=== PATIENT | female | born 1985 | race Caucasian/White ===

== ENCOUNTER 2020-06-18 13:11 | Outpatient (REF) | payer MEDICARE, SELFPAY ==
[2020-06-18 13:56] LABS: COVID-19 Test Negative (Negative)
== END 2020-06-18 13:12 | disposition home or self-care (01) ==
LOC: HO.LAB 13:11
PROVIDERS: Visit Provider Internal Medicine
DX: Z20.822 Contact with and (suspected) exposure to COVID-19 (principal)
CPT/HCPCS: 36415; 87635; C9803

== ENCOUNTER 2020-10-23 12:10 | Outpatient (REF) | payer OTHER, SELFPAY | END 2020-10-23 12:11 | disposition home or self-care (01) | LOC: HO.LAB 12:10 | PROVIDERS: PCP Internal Medicine; Visit Provider Internal Medicine | DX: Z20.822 Contact with and (suspected) exposure to COVID-19 (principal) | CPT/HCPCS: C9803; U0003; U0005 ==

== ENCOUNTER 2020-11-07 18:52 | Inpatient (IN) | payer OTHER, SELFPAY ==
--- NOTE | ~2020-11-07 | XR_ITS ---
EXAMINATION: XR CHEST CLINICAL INFORMATION: SOB. COMPARISON: Chest 07/31/2017 TECHNIQUE: Frontal view of the chest was obtained. FINDINGS: The lungs are well-expanded and clear. Heart size and pulmonary vascularity is normal. Mild prominent parahilar markings seen but no suspicion for congestion or infiltrate No gross bony abnormality. XR/XR chest 1V IMPRESSION: Patchy ill-defined densities right upper lobe and left lower lobe question developing infiltrate.
--- NOTE | ~2020-11-07 | CT_ITS ---
EXAMINATION: CT ANGIOGRAM OF THE CHEST WITH AND WITHOUT CONTRAST (CT PULMONARY ANGIOGRAM FOR PE) CLINICAL INFORMATION: Reason for Exam covid +, SOB, hypoxia, r/o pe COMPARISON: Chest x-ray 11/07/2020 TECHNIQUE: Prior to contrast administration, noncontrast localization images were obtained. Subsequently, multidetector volumetric imaging was performed from the thoracic inlet to below the diaphragms following the administration of 85 mL Omnipaque 350 intravenous contrast. No contrast reaction reported Sagittal, coronal, and MIP oblique sagittal reformatted images were obtained on the CT workstation, uploaded to PACS, and reviewed. This CT examination was performed using dose optimization techniques as appropriate, variously including the following: *Automated exposure control *Adjustment of mA and/or kV according to patient size (this includes techniques or standardized protocols for targeted exams where dose is matched to indication/reason for exam; i.e. extremities or head) *Use of iterative reconstruction technique Total exam dose-length product 521 mGy-cm FINDINGS: QUALITY OF STUDY/CONTRAST BOLUS: Suboptimal. PULMONARY ARTERIES: No central pulmonary embolus is identified. However, there is inadequate assessment of the segmental and subsegmental vasculature due to bolus timing and patient body habitus. THORACIC AORTA: No aneurysm or dissection. LUNG: Multifocal bilateral pulmonary consolidations are noted with basilar and peripheral predominance in keeping with history of patient's Covid positive status. PLEURA: No pleural effusion or pneumothorax. MEDIASTINUM: The visualized thyroid gland is unremarkable. Scattered mediastinal lymph nodes are present with mild enlargement in the right paratracheal region. Mildly prominent left hilar lymph nodes are also noted. These may be reactive in nature given the pulmonary consolidations. Cardiac size is within normal limits; no pericardial effusion. No evidence of septal bowing or right heart strain. CHEST WALL/AXILLA: No axillary or internal mammary lymphadenopathy. OSSEOUS STRUCTURES: No acute or suspicious osseous abnormality. UPPER ABDOMEN: There is diffuse hypoattenuation of the liver suspicious for steatosis. No reflux of contrast into the hepatic veins to suggest elevated right heart pressures. CT/CT angio chest PE protocol IMPRESSION: 1. No central pulmonary embolus identified. Inadequate assessment of the segmental and subsegmental vasculature, and therefore emboli at these levels cannot be excluded. 2. Multifocal bilateral consolidations consistent with Covid pneumonia. 3. Mildly enlarged mediastinal and left hilar lymph nodes, which may be reactive. 4. Hepatic steatosis. VTE: negative
[2020-11-07 20:18] VITALS: BP 155/95; PULSE 111; RESP 16; TEMP 36.9; O2SAT 93; BMI 54.9
[2020-11-07 22:10] LABS: Anion Gap 13 (12-20); Blood Urea Nitrogen 6 mg/dL (9-16); Carbon Dioxide 28 mmol/L (22-29); Chloride 100 mmol/L (96-108); Creatinine Clr Calc Pharmacy 155.5; Estimated Glomerular Filt Rate > 60; Glucose Random 284 mg/dL (60-115); Potassium 4.3 mmol/L (3.3-5.1); Sodium 137 mmol/L (135-145)
[2020-11-07 22:17] LABS: B Type Natriuretic Peptide < 10 pg/mL (<100); Troponin-I High Sensitivity < 3.5 ng/L (<3.5-17.0)
[2020-11-07 22:20] LABS: Basophils Percent Auto 0.2 % (0-2); Eosinophils Percent Auto 0.6 % (0-4); Hemoglobin 15.8 g/dl (12.0-16.0); Imm Gran Abs Auto 0.03 X10*3/uL (0.00-0.03); Imm Gran Pct Auto 0.6 % (0.0-0.4); Lymphocytes Absolute Auto 1.6 X10*3/uL (1.2-4.9); Lymphocytes Percent Auto 32.4 % (20-40); MANUAL DIFF FLAG SCAN; Mean Corpuscular HGB Conc 32.2 g/dl (31.0-35.0); Mean Corpuscular Hemoglobin 27.4 pg (27.0-33.0); Mean Corpuscular Volume 84.9 fL (80-98); Mean Platelet Volume 10.2 fL (9.4-12.3); Monocytes Absolute Auto 0.3 X10*3/uL (0.1-1.2); Monocytes Percent Auto 5.4 % (2-11); Neutrophils Absolute Auto 2.9 X10*3/uL (2.0-8.3); Neutrophils Percent Auto 60.8 % (45-73); Platelet Count 154 X10*3/uL (160-400); Red Blood Count 5.77 X10*6/uL (4.20-5.50); SCAN SMEAR FLAG 1; White Blood Count 4.8 X10*3/uL (4.8-10.8)
[2020-11-07 22:24] LABS: SLIDE REVIEW VERIFIED
--- NOTE | 2020-11-07 23:15 | ECG_ITS ---
Test Reason : SOB Blood Pressure : / mmHG Vent. Rate : 105 BPM Atrial Rate : 105 BPM P-R Int : 132 ms QRS Dur : 080 ms QT Int : 342 ms P-R-T Axes : 023 023 014 degrees QTc Int : 452 ms Sinus tachycardia Otherwise normal ECG When compared with ECG of 31-JUL-2017 13:24, No significant change was found Referred By: Dannielle Jackson Electronically Signed By:SWATHI RUTH
[2020-11-07 23:56] LABS: Appearance Urine HAZY; Glucose Urine UA NEG (NEG); Leukocyte Esterase Urine NEG (NEG); Nitrite Urine NEG (NEG); UACC Culture Trigger NO; Urine Blood 2+ (NEG); Urine Ketones NEG (NEG); Urine Protein 2+ MG/DL (NEG-TRACE)
[2020-11-07 23:57] LABS: Amorphous Sediment Urine 1+ /LPF; Color Urine STRAW; Mucus Urine TRACE /LPF; Squamous Epithelial Cell Urine 2+ /LPF
[2020-11-07 23:58] LABS: Bacteria Urine TRACE /LPF; WBC Urine 0 /HPF (0-4)
--- NOTE | 2020-11-07 23:58 | ED.SOB ---
HPI - SOB/Dyspnea General Chief Complaint: Dyspnea Stated Complaint: Difficulty breathing/Covid + Time Seen by Provider: 11/07/20 23:04 Source: patient Mode of arrival: ambulatory Limitations: no limitations History of Present Illness HPI Narrative: 35-year-old female with a past medical history of asthma, morbid obesity here with complaints of shortness of breath, continued fever. Patient tells me that she was diagnosed with COVID on November 02. She has been quarantine at home. She has been using her asthma medications as prescribed. She also has a nebulizer machine which she has been using several times today. She does feel short of breath and she is still having fevers up to 101 at home. This Is associated with cough. No chest pain, leg swelling or pain. Not vaccinated for COVID Related Data Previous Rx's Medication Instructions Recorded albuterol sulfate 2.5 mg INHALATION QID PRN #180 ml 08/03/20 amoxicillin 875 mg-potassium 1 tab PO BID #20 tab 08/03/20 clavulanate 125 mg tablet (Augmentin) prednisone 10 mg tablet 10 mg PO .COMPLEX #45 tab 08/03/20 Allergies Allergy/AdvReac Type Severity Reaction Status Date / Time No Known Allergies Allergy Unverified 08/03/20 14:25 [No Known Allergies*] Review of Systems Review of Systems: Yes all other systems are reviewed and are negative Constitutional: Constitutional: Reports no additional constitutional complaints, Denies body ache(s), Denies chills, Reports fever(s), Denies headache(s) and Denies weakness Eyes: Eyes: Reports no additional eye complaints and Denies change in vision ENT: Reports system reviewed and no additional complaints, except as documented, Denies dizziness, Denies headache(s), Denies nasal congestion, Denies nasal discharge and Denies neck pain Cardiovascular: Cardiovascular: Reports no additional cardiovascular complaints, Denies chest pain, Denies leg edema and Reports dyspnea Respiratory: Respiratory: Reports no additional respiratory complaints, Reports cough and Reports dyspnea Gastrointestinal: Gastrointestinal: Reports no additional gastrointestinal complaints, Denies abdominal pain, Denies diarrhea, Denies nausea and Denies vomiting Genitourinary: Genitourinary: Reports no additional female genitourinary complaints and Denies urinary incontinence Musculoskeletal: Musculoskeletal: Reports no additional musculoskeletal complaints, Denies back pain, Denies arthralgias, Denies joint swelling, Denies neck pain, Denies numbness and Denies tingling Integumentary/Breasts: Skin/Breast: Reports system reviewed and no additional complaints, except as docu and Denies rash Neurologic: Reports system reviewed and no additional complaints, except as documented, Denies Abnormal speech present, Denies dizziness, Denies headache(s), Denies numbness, Denies tingling and Denies weakness PMFSH Past Medical History Attestation statement: The following information was validated with the patient. Source: old records reviewed and nursing notes reviewed Social History Social History Advance Directives: No Advance Directives Information Provided: Yes Physical Exam Vital Signs: Vital Signs: Last Vital Signs Temp 98.5 F 11/07/20 20:18 Pulse 111 H 11/07/20 20:18 Resp 16 11/07/20 20:18 BP 155/95 H 11/07/20 20:18 Pulse Ox 93 11/07/20 20:18 Body Mass Index 54.9 Const: General: cooperative, healthy appearing, comfortable and no acute distress Orientation/consciousness: patient oriented x3 Limitations: no limitations HENMT: Head: Yes normal to inspection Ears: hearing grossly normal bilaterally General nose exam: Normal external nose present Face and sinus: Yes normal facial exam Mouth: Normal oral and palatal mucosa present Throat: Yes posterior oropharynx normal Eyes: General: appearance normal, both eyes and all related structures Pupils: Equal, round and reactive pupils present Neck: Neck: Yes normal visual inspection Chest: Chest palpation & inspection: normal inspection of the chest Resp: Other: Mild expiratory wheezing throughout Effort & Inspection: normal respiratory effort Cardio: Rate: regular rate Rhythm: regular rhythm Peripheral pulses: Peripheral pulses 2+ throughout GI: Inspection: Yes normal to inspection Palpation (GI): Soft to palpation and nontender Auscultation: normal bowel sounds Back/Spine/Pelvis: Thoracic/Lumbar Spine: thoracic and lumbar spine normal to inspection Skin: General skin exam: no rashes or lesions noted Neuro: General: patient oriented x3, no focal motor deficits and normal sensation to monofilament Cranial nerves: Yes Equal, round and reactive pupils present Cognition (Neuro): normal cognition Speech: No Abnormal speech present Gait exam (Neuro): Normal gait present Motor exam (neuro): 5/5 motor strength present throughout Extrem: General: Yes normal to inspection, Yes no pedal edema and Yes no calf tenderness Course Course Course Narrative: 35-year-old female known COVID positive here with continued shortness of breath and fever. On arrival mild tachypnea, tachycardia noted. This is from a viral infection. Will need labs, chest x-ray, EKG, CTA to r/o PE Unable to perform d dimer at this facility. MDM - SOB/Dyspnea Medical Records Attestation: I reviewed the patient's medical records. Lab Data Attestation: I reviewed the patient's lab results. Result diagrams: 11/07/20 21:50 11/07/20 21:50 Labs: Lab Results 11/07/20 11/07/20 11/07/20 Range/Units 21:50 21:50 21:50 WBC 4.8 (4.8-10.8) X10*3/uL RBC 5.77 H (4.20-5.50) X10*6/uL Hgb 15.8 (12.0-16.0) g/dl Hct 49.0 H (37-47) % MCV 84.9 (80-98) fL MCH 27.4 (27.0-33.0) pg MCHC 32.2 (31.0-35.0) g/dl RDW 12.0 (11.0-16.0) % Plt Count 154 L (160-400) X10*3/uL MPV 10.2 (9.4-12.3) fL Immature Gran % (Auto) 0.6 H (0.0-0.4) % Neut % (Auto) 60.8 (45-73) % Lymph % (Auto) 32.4 (20-40) % [place] % (Auto) 5.4 (2-11) % Eos % (Auto) 0.6 (0-4) % Baso % (Auto) 0.2 (0-2) % Lymph # (Auto) 1.6 (1.2-4.9) X10*3/uL [place] # (Auto) 0.3 (0.1-1.2) X10*3/uL Eos # (Auto) 0.0 (0.0-0.4) X10*3/uL Baso # (Auto) 0.0 (0.0-0.2) X10*3/uL Abs Immat Gran (auto) 0.03 (0.00-0.03) X10*3/uL Absolute Neuts (auto) 2.9 (2.0-8.3) X10*3/uL Absolute Nucleated RBC 0.000 (0.0-0.012) X10*3/uL Nucleated RBC % (auto) 0.0 (0.0-0.2) /100WBC Smear Tech's Comments VERIFIED Sodium 137 (135-145) mmol/L Potassium 4.3 (3.3-5.1) mmol/L Chloride 100 (96-108) mmol/L Carbon Dioxide 28 (22-29) mmol/L Anion Gap 13 (12-20) BUN 6 L (9-16) mg/dL Creatinine 0.75 (0.5-1.4) mg/dL Estim Creat Clear Calc 155.5 Estimated GFR > 60 Random Glucose 284 H (60-115) mg/dL Lactic Acid (0.5-2.0) mmol/L Calcium 8.0 L (8.4-10.2) mg/dL Ferritin Troponin I High Sens < 3.5 (<3.5-17.0) ng/L B-Natriuretic Peptide < 10 (<100) pg/mL Urine Color Urine Appearance Urine pH (5.0-8.0) Ur Specific [place] (1.005-1.025) Urine Protein (NEG-TRACE) MG/DL Urine Glucose (UA) (NEG) MG/DL Urine Ketones (NEG) MG/DL Urine Blood (NEG) Urine Nitrite (NEG) Ur Leukocyte Esterase (NEG) Urine RBC (0) /HPF Urine WBC (0-4) /HPF Ur Squamous Epith Cells /LPF Amorphous Sediment /LPF Urine Bacteria /LPF Urine Mucus /LPF 11/07/20 11/07/20 11/07/20 Range/Units 23:42 23:42 23:43 WBC (4.8-10.8) X10*3/uL RBC (4.20-5.50) X10*6/uL Hgb (12.0-16.0) g/dl Hct (37-47) % MCV (80-98) fL MCH (27.0-33.0) pg MCHC (31.0-35.0) g/dl RDW (11.0-16.0) % Plt Count (160-400) X10*3/uL MPV (9.4-12.3) fL Immature Gran % (Auto) (0.0-0.4) % Neut % (Auto) (45-73) % Lymph % (Auto) (20-40) % [place] % (Auto) (2-11) % Eos % (Auto) (0-4) % Baso % (Auto) (0-2) % Lymph # (Auto) (1.2-4.9) X10*3/uL [place] # (Auto) (0.1-1.2) X10*3/uL Eos # (Auto) (0.0-0.4) X10*3/uL Baso # (Auto) (0.0-0.2) X10*3/uL Abs Immat Gran (auto) (0.00-0.03) X10*3/uL Absolute Neuts (auto) (2.0-8.3) X10*3/uL Absolute Nucleated RBC (0.0-0.012) X10*3/uL Nucleated RBC % (auto) (0.0-0.2) /100WBC Smear Tech's Comments Sodium (135-145) mmol/L Potassium (3.3-5.1) mmol/L Chloride (96-108) mmol/L Carbon Dioxide (22-29) mmol/L Anion Gap (12-20) BUN (9-16) mg/dL Creatinine (0.5-1.4) mg/dL Estim Creat Clear Calc Estimated GFR Random Glucose (60-115) mg/dL Lactic Acid 1.9 (0.5-2.0) mmol/L Calcium (8.4-10.2) mg/dL Ferritin Cancelled Troponin I High Sens (<3.5-17.0) ng/L B-Natriuretic Peptide (<100) pg/mL Urine Color STRAW Urine Appearance HAZY Urine pH 6.0 (5.0-8.0) Ur Specific [place] 1.020 (1.005-1.025) Urine Protein 2+ H (NEG-TRACE) MG/DL Urine Glucose (UA) NEG (NEG) MG/DL Urine Ketones NEG (NEG) MG/DL Urine Blood 2+ H (NEG) Urine Nitrite NEG (NEG) Ur Leukocyte Esterase NEG (NEG) Urine RBC 15-29 H (0) /HPF Urine WBC 0 (0-4) /HPF Ur Squamous Epith Cells 2+ /LPF Amorphous Sediment 1+ /LPF Urine Bacteria TRACE /LPF Urine Mucus TRACE /LPF Imaging Data Chest x-ray: Attestation: I personally reviewed and interpreted this imaging study as follows: Radiologist's impression: [address] [address] XRay Report Signed Patient: Jami Mathew MR#: [id number] : 1985 Acct:[id number] Age/Sex: 35 / F ADM Date: 11/07/20 Loc: .ED Attending Dr: Ordering Physician: Generic ED Physician Date of Service: 11/07/20 Procedure(s): XR chest 1V Accession Number(s): [id number] cc: Generic ED Physician~ EXAMINATION: XR CHEST CLINICAL INFORMATION: SOB. COMPARISON: Chest 07/31/2017 TECHNIQUE: Frontal view of the chest was obtained. FINDINGS: The lungs are well-expanded and clear. Heart size and pulmonary vascularity is normal. Mild prominent parahilar markings seen but no suspicion for congestion or infiltrate No gross bony abnormality. XR/XR chest 1V IMPRESSION: Patchy ill-defined densities right upper lobe and left lower lobe question developing infiltrate. ? ECG Data Attestation: I personally reviewed and interpreted this ECG as follows: ECG interpretation date: 11/08/20 ECG interpretation time: 23:55 Interpretation: Sinus tachycardia with a rate of 105, normal [place], normal QRS, normal QT Discharge Plan Discharge Clinical Impression: COVID-19 Prescriptions: No Action prednisone 10 mg tablet 10 mg PO .COMPLEX Qty: 45 RF: 0 amoxicillin-pot clavulanate [Augmentin] 875-125 mg tablet 1 tab PO BID Qty: 20 RF: 0 albuterol sulfate 2.5 mg /3 mL (0.083 %) solution for nebulization 2.5 mg inhalation QID PRN (Reason: shortness of breath or wheezing) Qty: 180 RF: 1
[2020-11-08] VITALS (8 sets, daily range): BP systolic 132–147; BP diastolic 81–103; PULSE 82–104; RESP 16–20; TEMP 36.7–37.2; O2SAT 91–95
[2020-11-08 00:02] LABS: Lactic Acid 1.9 mmol/L (0.5-2.0)
[2020-11-08 00:11] LABS: Alanine Aminotransferase 47 U/L (0-31); Albumin Level 3.9 g/dL (3.5-5.0); Alkaline Phosphatase 64 U/L (39-117); Aspartate Amino Transferase 53 U/L (5-31); Bilirubin Direct < 0.2 mg/dL (0.0-0.5); Bilirubin Total 0.3 mg/dL (0.0-1.0); C Reactive Protein 13.85 mg/dL (< or = 0.50); Lactate Dehydrogenase 561 U/L (122-220); Total Protein 7.1 g/dL (6.5-8.0)
[2020-11-08 00:27] LABS: Ferritin 1110 ng/mL (10-122)
[2020-11-08] MEDS: dexAMETHasone sod phosphate 4 MG/ML VIAL 6 MG IVPUSH ×2 (00:30→21:56)
[2020-11-08 05:59] LABS: Procalcitonin 0.07 ng/mL
[2020-11-08] MEDS: iohexoL 350 MG/ML 100 ML INFUS..BTL 85 ML IV (06:02)
--- NOTE | 2020-11-08 06:36 | P.HPHOSP_ITS ---
History of Present Illness Date of Service: 11/08/20 Chief Complaint: Shortness of breath This is a 35-year-old female with a past medical history of asthma presents to the hospital with complaints of increasing shortness of breath as well as fevers. Patient reports that she was diagnosed with COVID-19 on November 02, she has been isolating at home but her symptoms of shortness of breath as well as fevers have been persistent and worsening and therefore decided to come to the hospital. No palpitations, no abdominal pain nausea or vomiting, no diarrhea constipation, no urinary symptoms. No lower extremity edema. Patient is not vaccinated against COVID-19. Found to have a temperature of 98.5?, heart rate of 111, respiratory rate of 16, blood pressure 155/95, satting 93% on room air, dropping to 88% on ambulation For WBC count of 4.8, both elevated CRP, as well as LDH, ALT AST, ferritin Patient underwent CT angiogram which showed no central pulmonary emboli, inadequate assessment of the segmental and subsegmental arteries. Multifocal bilateral consolidation consistent with COVID pneumonia Given her hypoxia patient will be admitted for further management Review of Systems Review of Systems: Yes all other systems are reviewed and are negative [facility] Medical History History of asthma Pertinent family history: No pertinent family history Surgical History No significant past surgical history Social History Advance Directives: No Advance Directives Information Provided: Yes Meds Allergies Allergy/AdvReac Type Severity Reaction Status Date / Time No Known Allergies Allergy Unverified 08/03/20 14:25 [No Known Allergies*] Physical Exam Vital Signs and Narrative: Vital Signs: Last Vital Signs Temp 98.5 F 11/07/20 20:18 Pulse 104 H 11/08/20 00:10 Resp 20 11/08/20 00:10 BP 132/88 11/08/20 00:10 Pulse Ox 91 L 11/08/20 00:10 Body Mass Index 54.9 Const: General: cooperative and no acute distress Orientation/con sciousness: patient oriented x3 Eyes: General: appearance normal, both eyes and all related structures Pupils: Equal, round and reactive pupils present Resp: Other: Crackles bilaterally Effort & Inspection: normal respiratory effort Cardio: Rate: regular rate Rhythm: regular rhythm GI: Palpation (GI): Soft to palpation Auscultation: normal bowel sounds Skin: General skin exam: no rashes or lesions noted Neuro: General: patient oriented x3 Cranial nerves: Yes Equal, round and reactive pupils present Cognition (Neuro): normal cognition Extrem: General: Yes normal to inspection and Yes no pedal edema Results Labs CBC and Chem 7: 11/07/20 21:50 11/07/20 21:50 Labs: Laboratory Results - last 24 hr 11/07/20 11/07/20 11/07/20 21:50 21:50 21:50 MCV 84.9 MCH 27.4 MCHC 32.2 RDW 12.0 Plt Count 154 L MPV 10.2 Immature Gran % (Auto) 0.6 H Neut % (Auto) 60.8 Lymph % (Auto) 32.4 [place] % (Auto) 5.4 Eos % (Auto) 0.6 Baso % (Auto) 0.2 Lymph # (Auto) 1.6 [place] # (Auto) 0.3 Eos # (Auto) 0.0 Baso # (Auto) 0.0 Abs Immat Gran (auto) 0.03 Absolute Neuts (auto) 2.9 Absolute Nucleated RBC 0.000 Nucleated RBC % (auto) 0.0 Smear Tech's Comments VERIFIED Anion Gap 13 Estim Creat Clear Calc 155.5 Estimated GFR > 60 Random Glucose 284 H Lactic Acid Calcium 8.0 L Ferritin Total Bilirubin Direct Bilirubin AST ALT Alkaline Phosphatase Lactate Dehydrogenase Troponin I High Sens < 3.5 C-Reactive Protein B-Natriuretic Peptide < 10 Total Protein Albumin Procalcitonin Urine Color Urine Appearance Urine pH Ur Specific [place] Urine Protein Urine Glucose (UA) Urine Ketones Urine Blood Urine Nitrite Ur Leukocyte Esterase Urine RBC Urine WBC Ur Squamous Epith Cells Amorphous Sediment Urine Bacteria Urine Mucus 11/07/20 11/07/20 11/07/20 23:42 23:42 23:42 MCV MCH MCHC RDW Plt Count MPV Immature Gran % (Auto) Neut % (Auto) Lymph % (Auto) [place] % (Auto) Eos % (Auto) Baso % (Auto) Lymph # (Auto) [place] # (Auto) Eos # (Auto) Baso # (Auto) Abs Immat Gran (auto) Absolute Neuts (auto) Absolute Nucleated RBC Nucleated RBC % (auto) Smear Tech's Comments Anion Gap Estim Creat Clear Calc Estimated GFR Random Glucose Lactic Acid 1.9 Calcium Ferritin 1110 H Cancelled Total Bilirubin 0.3 Direct Bilirubin < 0.2 AST 53 H ALT 47 H Alkaline Phosphatase 64 Lactate Dehydrogenase 561 H Troponin I High Sens C-Reactive Protein 13.85 H B-Natriuretic Peptide Total Protein 7.1 Albumin 3.9 Procalcitonin Urine Color Urine Appearance Urine pH Ur Specific [place] Urine Protein Urine Glucose (UA) Urine Ketones Urine Blood Urine Nitrite Ur Leukocyte Esterase Urine RBC Urine WBC Ur Squamous Epith Cells Amorphous Sediment Urine Bacteria Urine Mucus 11/07/20 11/07/20 23:42 23:43 MCV MCH MCHC RDW Plt Count MPV Immature Gran % (Auto) Neut % (Auto) Lymph % (Auto) [place] % (Auto) Eos % (Auto) Baso % (Auto) Lymph # (Auto) [place] # (Auto) Eos # (Auto) Baso # (Auto) Abs Immat Gran (auto) Absolute Neuts (auto) Absolute Nucleated RBC Nucleated RBC % (auto) Smear Tech's Comments Anion Gap Estim Creat Clear Calc Estimated GFR Random Glucose Lactic Acid Calcium Ferritin Total Bilirubin Direct Bilirubin AST ALT Alkaline Phosphatase Lactate Dehydrogenase Troponin I High Sens C-Reactive Protein B-Natriuretic Peptide Total Protein Albumin Procalcitonin 0.07 Urine Color STRAW Urine Appearance HAZY Urine pH 6.0 Ur Specific [place] 1.020 Urine Protein 2+ H Urine Glucose (UA) NEG Urine Ketones NEG Urine Blood 2+ H Urine Nitrite NEG Ur Leukocyte Esterase NEG Urine RBC 15-29 H Urine WBC 0 Ur Squamous Epith Cells 2+ Amorphous Sediment 1+ Urine Bacteria TRACE Urine Mucus TRACE ECG Interpretation: Sinus tachycardia Imaging Radiologist's Impressions: Impressions Chest X-Ray 11/07/20 20:19 IMPRESSION: Patchy ill-defined densities right upper lobe and left lower lobe question developing infiltrate. Chest CTA 11/08/20 00:00 IMPRESSION: 1. No central pulmonary embolus identified. Inadequate assessment of the segmental and subsegmental vasculature, and therefore emboli at these levels cannot be excluded. 2. Multifocal bilateral consolidations consistent with Covid pneumonia. 3. Mildly enlarged mediastinal and left hilar lymph nodes, which may be reactive. 4. Hepatic steatosis. VTE: negative Assessment and Plan (1) Acute respiratory failure with hypoxia: Status: Acute (2) Pneumonia due to COVID-19 virus: Status: Acute This is a 35-year-old female with past medical history of asthma presents to hospital with COVID-19 positive serology as well as shortness of breath and persistent fever # acute hypoxic respiratory failure - patient desatted to 88% on ambulation - secondary to COVID-19 pneumonia - will start on dexamethasone - monitor respiratory status # COVID-19 pneumonia - Diagnosis with COVID 19 on November 02 - patient on vaccinated - hypoxic on ambulation - start her on dexamethasone - O2 as required # asthma - will order DuoNeb p.r.n. as well as scheduled DVT prophylaxis: Heparin subQ Quality Stroke Does the patient have a stroke diagnosis?: No VTE Prior VTE?: No VTE Risk Level:: Medical - moderate - high VTE Device Contraindication: Treatment Not Indicated VTE Drug Contraindication: N/A - Med Ordered
[2020-11-08] MEDS: Albuterol/Iprat 2.5/0.5MG 3 ML AMPUL.NEB INHALE (06:52)
--- NOTE | 2020-11-08 07:52 | PC.NURSE ---
report taken from francis cutler pt here covid + w sob on exertion. denies any physical complaint at this time, resting comfortably in stretcher rr even unlabored. awaiting inpt bed assignment, wctm for dc needs.
--- NOTE | 2020-11-08 08:27 | PHA.MEDREC ---
Pharmacy Consult ? Medication Reconciliation Pharmacy has completed the medication reconciliation. There are no remarkable issues for provider's attention. Tracie Dias, CaneloD
--- NOTE | 2020-11-08 09:04 | MHC.CM.PN ---
CM ATTEMPTED TO CONTACT PT AT THE NUMBER LISTED ([phone]). CALL WENT TO , MESSAGE LEFT REQUESTING A RETURN CALL AND PROVIDING IMM INFO. PT DOES NOT HAVE A HCP ON FILE. CM WILL ATTEMPT TO REACH PT AGAIN LATER IN THE DAY.
--- NOTE | 2020-11-08 11:59 | PM.EVENT ---
Event Note Date of Service: 11/08/20 Event Note: Patient seen examined chart reviewed patient admitted early this morning due to shortness of breath and fever, recently diagnosed to have COVID-19 on November 02. Patient feels better since admit no further episodes of fever continued to feel shortness of breath. On examination no respiratory distress awake alert Lungs bilateral rhonchi, diminished breath sound Extremities no edema Assessment and plan 35-year-old female with past medical history of asthma presents to hospital with COVID-19 positive serology as well as shortness of breath and persistent fever # acute hypoxic respiratory failure Due to COVID-19 pneumonia will continue IV dexamethasone, add DuoNeb continue cough medication, oxygen, encourage frequent position change Elevated CRP 13.85, LDH 561, CT chest showed no PE, showed multifocal bilateral consolidation and reactive mediastinal and left hilar lymph nodes,also noted to have hepatic steatosis Will add IV azithromycin Continue supportive care and monitor respiratory status # asthma Continue steroids and DuoNeb p.r.n. as well as scheduled # morbid obesity strongly recommend to lose weight and follow low-calorie diet low Marylu with likely contributing to hepatitic steatosis and hypoxia DVT prophylaxis:? Heparin subQ
[2020-11-08] MEDS: Famotidine/PF 20 MG/2 ML VIAL 40 MG IVPUSH ×2 (13:46→21:57)
[2020-11-08] MEDS: Azithromycin 500 MG in 0.9 % Sodium Chloride 250 ML 125 MG IV (13:46)
[2020-11-08] MEDS: Albuterol Sulfate 90 MCG 8 GM INHALER 4 PUFF INHALE (17:15)
[2020-11-08] MEDS: 0.9 % Sodium Chloride Flush 3 ML SYRINGE IVFLUSH (21:57)
[2020-11-08] MEDS: Heparin Sodium,Porcine 5,000 UNIT/ML VIAL 5000 UNIT SUBCUT (21:57)
[2020-11-09] VITALS (10 sets, daily range): BP systolic 124–158; BP diastolic 78–100; PULSE 79–99; RESP 18–20; TEMP 35.8–37; O2SAT 90–97
[2020-11-09] MEDS: 0.9 % Sodium Chloride Flush 3 ML SYRINGE IVFLUSH ×4 (00:03→20:49)
[2020-11-09] MEDS: Heparin Sodium,Porcine 5,000 UNIT/ML VIAL 5000 UNIT SUBCUT ×3 (05:10→20:48)
[2020-11-09 06:49] LABS: Basophils Percent Auto 0.2 % (0-2); Hematocrit 42.9 % (37-47); Hemoglobin 13.7 g/dl (12.0-16.0); Imm Gran Abs Auto 0.03 X10*3/uL (0.00-0.03); Imm Gran Pct Auto 0.7 % (0.0-0.4); Lymphocytes Absolute Auto 1.3 X10*3/uL (1.2-4.9); Lymphocytes Percent Auto 32.4 % (20-40); MANUAL DIFF FLAG SCAN; Mean Corpuscular HGB Conc 31.9 g/dl (31.0-35.0); Mean Corpuscular Hemoglobin 27.3 pg (27.0-33.0); Mean Corpuscular Volume 85.5 fL (80-98); Monocytes Absolute Auto 0.3 X10*3/uL (0.1-1.2); Monocytes Percent Auto 6.8 % (2-11); Neutrophils Absolute Auto 2.5 X10*3/uL (2.0-8.3); Neutrophils Percent Auto 59.9 % (45-73); Platelet Count 198 X10*3/uL (160-400); Red Blood Count 5.02 X10*6/uL (4.20-5.50); Red Cell Distribution Width 11.9 % (11.0-16.0); SCAN SMEAR FLAG 1; White Blood Count 4.1 X10*3/uL (4.8-10.8)
[2020-11-09 07:03] LABS: Anion Gap 13 (12-20); Blood Urea Nitrogen 12 mg/dL (9-16); Carbon Dioxide 28 mmol/L (22-29); Chloride 100 mmol/L (96-108); Creatinine Clr Calc Pharmacy 149.4; Estimated Glomerular Filt Rate > 60; Potassium 4.9 mmol/L (3.3-5.1); Sodium 136 mmol/L (135-145)
[2020-11-09 07:34] LABS: SLIDE REVIEW VERIFIED
[2020-11-09 07:56] LABS: Glucose Random 397 mg/dL (60-115)
[2020-11-09] MEDS: Albuterol Sulfate 90 MCG 8 GM INHALER 4 PUFF INHALE ×4 (08:22→19:55)
--- NOTE | 2020-11-09 09:01 | MHC.CM.PN ---
Patient is Covid positive and not reachable by phone ([phone] nor room Ext. [phone]); CM spoke with Patient's Mother/Lisandra and IMM was addressed with her (original to be mailed certified letter to her and a copy placed on the chart). Patient lives in an apartment with her Boyfriend and 3 Children, ages 10, 6, 4 years of age(All of whom are also Covid (+) and home is the goal for dc. CM has initiated and will follow for dc planning. PCP is Dr. Kavon Messer.
[2020-11-09] MEDS: Azithromycin 500 MG in 0.9 % Sodium Chloride 250 ML 125 MG IV (11:19)
[2020-11-09] MEDS: dexAMETHasone sod phosphate 4 MG/ML VIAL 6 MG IVPUSH (11:20)
[2020-11-09] MEDS: Famotidine/PF 20 MG/2 ML VIAL 40 MG IVPUSH ×2 (11:20→20:48)
--- NOTE | 2020-11-09 12:19 | P.PNIM_ITS ---
Subjective Subjective Date of Service: 11/09/20 Interval History: Patient being followed for hypoxia, feeling better this morning less short of breath, no chest tightness, complaining of cough, no other acute issues Review of Systems General no headache, no dizziness, no fever chills. CVS no chest pain, no palpitation. Respiratory cough, sob. Gastrointestinal no nausea, no vomiting, no abdominal pain Physical Exam Vital Signs: Vital Signs: Last Vital Signs Temp 98.6 F 11/09/20 11:17 Pulse 92 11/09/20 11:23 Resp 20 11/09/20 11:17 BP 149/85 H 11/09/20 11:17 Pulse Ox 95 11/09/20 11:17 Body Mass Index 54.9 General alert oriented x3,no acute distress. Neck supple no JVD. CVS regular rate rhythm, Respiratory lungs diminished breath sounds, bilateral expiratory wheeze, no respiratory distress Gastrointestinal abdomen soft, nontender, bowel sounds audible, no guarding , no rigidity. Extremities no edema. Neuro nonfocal , speech clear. Skin no rash Psych appropriate affect Objective Data Active Medications Acetaminophen (Acetaminophen 325 Mg Tablet) 650 mg PO Q6H PRN PRN Reason: Pain, Mild (Pain Scale 1-3) Albuterol Sulfate (Albuterol Sulfate 90 Mcg 8 Gm Inhaler) 4 puff INHALE RQ4H WHILE AWAKE [facility] Last Admin: 11/09/20 11:19 Dose: 4 puff Documented by: JOSÉ Dexamethasone Sodium Phosphate (Dexamethasone Sod Phosphate 4 Mg/Ml Vial) 6 mg IVPUSH DAILY [facility] Last Admin: 11/09/20 11:20 Dose: 6 mg Documented by: TOM Docusate Sodium (Docusate Sodium 100 Mg Capsule) 100 mg PO DAILY PRN PRN Reason: Constipation Famotidine (Famotidine/Pf 20 Mg/2 Ml Vial) 40 mg IVPUSH BID [facility] Last Admin: 11/09/20 11:20 Dose: 40 mg Documented by: TOM Heparin Sodium (Porcine) (Heparin Sodium,Porcine 5,000 Unit/Ml Vial) 5,000 unit SUBCUT Q8H [facility] Last Admin: 11/09/20 11:21 Dose: 5,000 unit Documented by: TOM Azithromycin 500 mg/ Sodium (Chloride) 250 mls @ 125 mls/hr IV Q24H [facility] Last Admin: 11/09/20 11:19 Dose: 125 mls/hr Documented by: TOM Ondansetron HCl (Ondansetron Hcl 4 Mg/2 Ml Vial) 4 mg IVPUSH Q8H PRN PRN Reason: Nausea and Vomiting Sodium Chloride (0.9 % Sodium Chloride Flush 3 Ml Syringe) 3 ml IVFLUSH QSHIFT [facility] Last Admin: 11/09/20 11:21 Dose: 3 ml Documented by: TOM Labs CBC & Chem 7: 11/09/20 06:21 11/09/20 06:21 Labs: Laboratory Results - last 24 hr 11/09/20 11/09/20 06:21 06:21 MCV 85.5 MCH 27.3 MCHC 31.9 RDW 11.9 Plt Count 198 D MPV 10.0 Immature Gran % (Auto) 0.7 H Neut % (Auto) 59.9 Lymph % (Auto) 32.4 [place] % (Auto) 6.8 Eos % (Auto) 0.0 Baso % (Auto) 0.2 Lymph # (Auto) 1.3 [place] # (Auto) 0.3 Eos # (Auto) 0.0 Baso # (Auto) 0.0 Abs Immat Gran (auto) 0.03 Absolute Neuts (auto) 2.5 Absolute Nucleated RBC 0.000 Nucleated RBC % (auto) 0.0 Smear Tech's Comments VERIFIED Anion Gap 13 Estim Creat Clear Calc 149.4 Estimated GFR > 60 Random Glucose 397 H* Calcium 8.0 L Microbiology Microbiology Results: Microbiology 11/08/20 02:00 Blood Culture - Preliminary Blood - Venous No growth after 24 hours. 11/08/20 01:55 Blood Culture - Preliminary Blood - Venous No growth after 24 hours. Assessment and Plan (1) Pneumonia due to COVID-19 virus: Status: Acute (2) Acute respiratory failure with hypoxia: Status: Acute (3) COVID-19: Status: Acute Assessment and Plan: 35-year-old female with past medical history of asthma presents to hospital with COVID-19 positive serology as well as shortness of breath and persistent fever # acute hypoxic respiratory failure ?? Due to COVID-19 pneumonia will continue IV dexamethasone, continue cough medication, oxygen support, encourage frequent position change ?? Elevated CRP 13.85, LDH 561, procalcitonin 0.07, CT chest showed no PE, showed multifocal bilateral consolidation and reactive mediastinal and left hilar lymph nodes,also noted to have hepatic steatosis ?? cont. IV azithromycin day 2 for possible bronchitis ?? Continue supportive care and monitor respiratory status Wean oxygen, encourage incentive spirometry and ambulation # asthma exac improving sob and cough ?? Continue iv steroids and albuterol mdi scheduled and p.r.n. / will dc duoneb due to covid # morbid obesity strongly recommend to lose weight and follow low-calorie diet /obesity likely contributing to hepatitic steatosis and hypoxia # hyperglycemia blood sugars in 300s likely due to steroids , no history of diabetes, will check hemoglobin A1c and place on insulin sliding scale DVT prophylaxis:? Heparin subQ Quality Stroke Does the patient have a stroke diagnosis?: No VTE Prior VTE?: No VTE Risk Level:: Medical - moderate - high VTE Device Contraindication: Treatment Not Indicated VTE Drug Contraindication: N/A - Med Ordered
[2020-11-09 16:06] LABS: Glucose, Whole Blood 483 mg/dL (60-115)
[2020-11-09] MEDS: Insulin Lispro 100 UNIT/ML 3 ML VIAL SUBCUT ×3 (16:28→20:48)
[2020-11-09 19:55] LABS: Glucose, Whole Blood 501 mg/dL (60-115)
[2020-11-09] MEDS: Insulin Lispro 100 UNIT/ML 3 ML VIAL 10 UNIT SUBCUT (20:48)
[2020-11-10 03:46] VITALS: BP 165/103; PULSE 81; RESP 16; TEMP 36.3; O2SAT 95
[2020-11-10] MEDS: Heparin Sodium,Porcine 5,000 UNIT/ML VIAL 5000 UNIT SUBCUT (04:22)
[2020-11-10 07:47] LABS: Glucose, Whole Blood 324 mg/dL (60-115)
[2020-11-10 08:00] VITALS: PULSE 80; RESP 20; TEMP 36.9; O2SAT 93
[2020-11-10] MEDS: Insulin Lispro 100 UNIT/ML 3 ML VIAL SUBCUT (08:16)
[2020-11-10] MEDS: 0.9 % Sodium Chloride Flush 3 ML SYRINGE IVFLUSH (08:16)
[2020-11-10] MEDS: Azithromycin 250 MG TABLET PO (08:17)
[2020-11-10] MEDS: dexAMETHasone sod phosphate 4 MG/ML VIAL 6 MG IVPUSH (08:17)
[2020-11-10 09:25] LABS: Estimated Average Glucose 266 mg/dL; Hemoglobin A1c % 10.9 %
[2020-11-10 09:37] LABS: Alanine Aminotransferase 36 U/L (0-31); Albumin Level 3.7 g/dL (3.5-5.0); Alkaline Phosphatase 55 U/L (39-117); Aspartate Amino Transferase 36 U/L (5-31); Bilirubin Direct 0.2 mg/dL (0.0-0.5); Bilirubin Total 0.4 mg/dL (0.0-1.0); Lactate Dehydrogenase 338 U/L (122-220); Total Protein 6.5 g/dL (6.5-8.0)
--- NOTE | 2020-11-10 10:22 | PM.DS ---
DS: Providers Provider Date of Service: 11/10/20 Date of admission: 11/08/20 02:21 Primary care physician: Kavon Messer MD DS: Diagnosis Discharge Diagnosis (1) Pneumonia due to COVID-19 virus: Status: Acute (2) Acute respiratory failure with hypoxia: Status: Acute (3) COVID-19: Status: Acute DS: Summary Hospital Course Hospital Course: History of presenting illness Chief Complaint: Shortness of breath This is a 35-year-old female with a past medical history of asthma presents to the hospital with complaints of increasing shortness of breath as well as fevers.? Patient reports that she was diagnosed with COVID-19 on November 02, she has been isolating at home but her symptoms of shortness of breath as well as fevers have been persistent and worsening and therefore decided to come to the hospital.? No palpitations, no abdominal pain nausea or vomiting, no diarrhea constipation, no urinary symptoms.? No lower extremity edema.? Patient is not vaccinated against COVID-19. Found to have a temperature of 98.5?, heart rate of 111, respiratory rate of 16, blood pressure 155/95, satting 93% on room air, dropping to 88% on ambulation For WBC count of 4.8, both elevated CRP, as well as LDH, ALT AST, ferritin Patient underwent CT angiogram which showed no central pulmonary emboli, inadequate assessment of the segmental and subsegmental arteries.? Multifocal bilateral consolidation consistent with COVID pneumonia Hospital course 35-year-old female with past medical history of asthma presents to hospital with COVID-19 positive serology on 11/07/20 with complain of shortness of breath and persistent fever, patient noted to be hypoxic and admitted to [facility] with a diagnosis of acute hypoxic respiratory failure due to COVID-19 pneumonia and treated with IV dexamethasone, cough medication, antibiotics and oxygen support, patient responded well to above treatment she has been weaned off of oxygen, hypoxia resolved therefore she is being discharged home on by mouth dexamethasone for 4 more days she has been recommended to continue isolation for next few days , She was also noted to have mild asthma exacerbation that has improved, she has been continued on home inhalers, patient was noted to have significantly elevated blood sugars patient has history of diabetes but currently not taking home medications therefore she has been started back on metformin 500 mg b.i.d. and has been advised to follow a diabetic diet and to follow blood sugars and to have close outpatient follow-up with primary care physician her hemoglobin A1cs greater than 10, in regard to her morbid obesity that is likely contributing to hepatic steatosis she was recommended low-calorie diet. Time Spent with Patient Time attestation: Total time spent providing and/or coordinating discharge services: Discharge coordination time: Greater than 30 minutes Quality: Stroke Does the patient have a stroke diagnosis?: No Physical Exam Vital Signs: Vital Signs: Last Vital Signs Temp 98.4 F 11/10/20 08:00 Pulse 80 11/10/20 08:00 Resp 20 11/10/20 08:00 BP 165/103 H 11/10/20 03:46 Pulse Ox 93 11/10/20 08:00 Body Mass Index 54.9 General alert oriented x3,no acute distress.? Neck? supple no JVD. CVS? regular rate rhythm, Respiratory lungs diminished breath sounds, bilateral expiratory wheeze, no? respiratory distress Gastrointestinal abdomen soft, nontender, bowel sounds audible, no guarding , no rigidity. Extremities no edema. Neuro nonfocal , speech clear. Skin no rash Psych appropriate affect DS: Data Data Completed and Pending Labs on day of discharge: Laboratory Results - last 24 hr 11/09/20 11/09/20 11/10/20 15:55 19:50 07:24 POC Glucose 483 H* 501 H* 324 H Estimat Average Glucose Hemoglobin A1c % Total Bilirubin Direct Bilirubin AST ALT Alkaline Phosphatase Lactate Dehydrogenase Total Protein Albumin 11/10/20 11/10/20 07:37 07:37 POC Glucose Estimat Average Glucose 266 Hemoglobin A1c % 10.9 Total Bilirubin 0.4 Direct Bilirubin 0.2 AST 36 H ALT 36 H Alkaline Phosphatase 55 Lactate Dehydrogenase 338 H Total Protein 6.5 Albumin 3.7 Preliminary micro results at discharge 11/08/20 02:00 Blood Culture - Preliminary Blood - Venous No growth after 48 hours. 11/08/20 01:55 Blood Culture - Preliminary Blood - Venous No growth after 48 hours. Discharge Plan Discharge Patient Disposition: Home, Self-Care Discharge Diagnosis: Acute hypoxic respiratory failure COVID-19 infection Referrals: Kavon Messer MD [Primary Care Provider] - 1 Week Discharge Medications: New azithromycin 250 mg Tablet 250 mg PO Q24H Qty: 3 RF: 0 metformin 500 mg tablet 500 mg PO BID Qty: 60 RF: 0 dexamethasone 6 mg tablet 6 mg PO DAILY Qty: 4 RF: 0 Continued albuterol sulfate 2.5 mg /3 mL (0.083 %) solution for nebulization 2.5 mg inhalation QID PRN (Reason: shortness of breath or wheezing) Qty: 180 RF: 1 Discharge Orders: Discharge Order (Routine); Ordered 11/10/20 Ordered By: Phillip Maxwell Diet: diabetic diet Activity on Discharge: As tolerated Stand Alone Forms: Patient Portal Discharge page Care Plan Goals: Continue isolation at home for next 2 days, wear mask in public, take dexamethasone for 4 more days. In regard to diabetes start using metformin 500 mg twice daily, medicine follow diabetic diet and monitor blood sugars at home might need higher doses of metformin follow-up with primary care physician Health Concerns: Diabetes mellitus strictly follow diabetic diet and blood sugars Plan of Treatment: Outpatient follow-up with primary care physician Assessment: As above
[2020-11-10] MEDS: Albuterol Sulfate 90 MCG 8 GM INHALER 4 PUFF INHALE (11:37)
[2020-11-10 11:38] VITALS: PULSE 87; O2SAT 94
== END 2020-11-10 11:50 | disposition home or self-care (01) | DRG 177 ==
LOC: HO.ED 23:09 → HO.EDOVER 11-08 06:17 → HO.IMC 11-08 17:57
PROVIDERS: Nurse Practitioner Family; Admitting Provider Internal Medicine; Emergency Provider Emergency Medicine; PCP Internal Medicine; Visit Provider Hospitalist
DX: U07.1 COVID-19 (principal); J12.82 Pneumonia due to coronavirus disease 2019; J96.01 Acute respiratory failure with hypoxia; Z68.43 Body mass index [BMI] 50.0-59.9, adult; J45.901 Unspecified asthma with (acute) exacerbation; K76.0 Fatty (change of) liver, not elsewhere classified; E66.01 Morbid (severe) obesity due to excess calories; Z86.16 Personal history of COVID-19; Z87.891 Personal history of nicotine dependence; Z79.84 Long term (current) use of oral hypoglycemic drugs; Z79.899 Other long term (current) drug therapy
CPT/HCPCS: 36415; 71045; 71275; 80048; 80076; 81001; 82728; 82947; 83036; 83605; 83615; 83880; 84145; 84484; 85025; 86140; 87040; 93005; 94640; 99285; J0456; J1100; Q9967

== ENCOUNTER 2021-04-05 07:56 | Outpatient (REF) | payer OTHER, SELFPAY ==
[2021-04-05 12:10] LABS: Alanine Aminotransferase 20 U/L (0-31); Albumin Level 4.3 g/dL (3.5-5.0); Alkaline Phosphatase 69 U/L (39-117); Anion Gap 12 (12-20); Aspartate Amino Transferase 16 U/L (5-31); Bilirubin Total 0.3 mg/dL (0.0-1.0); Blood Urea Nitrogen 10 mg/dL (9-16); Calcium 9.3 mg/dL (8.4-10.2); Carbon Dioxide 31 mmol/L (22-29); Chloride 100 mmol/L (96-108); Cholesterol 192 mg/dL; Estimated Glomerular Filt Rate > 60; Glucose Fasting 124 mg/dL (60-99); HDL Cholesterol 52 mg/dL; LDL Cholesterol Calculated 114 mg/dl; Potassium 4.6 mmol/L (3.3-5.1); Sodium 138 mmol/L (135-145); Total Protein 7.1 g/dL (6.5-8.0); Triglycerides 134 mg/dL
[2021-04-05 12:21] LABS: TSH reflex Free T4 1.02 uIU/mL (0.32-4.0)
[2021-04-05 12:23] LABS: Estimated Average Glucose 143 mg/dL; Hemoglobin A1c % 6.6 %
[2021-04-05 12:26] LABS: Creatinine Urine 100.04 mg/dL; Microalbum/Creatinine Ratio Ur 6.9 ug/mg cr
== END 2021-04-05 07:57 | disposition home or self-care (01) ==
LOC: HO.HMGCLDS 07:56
PROVIDERS: Visit Provider Internal Medicine
DX: E11.65 Type 2 diabetes mellitus with hyperglycemia (principal); J45.20 Mild intermittent asthma, uncomplicated; E66.01 Morbid (severe) obesity due to excess calories
CPT/HCPCS: 36415; 80053; 80061; 82043; 83036; 84443

== ENCOUNTER 2021-04-19 08:16 | Outpatient (REF) | payer OTHER, SELFPAY ==
[2021-04-19 12:13] LABS: Ferritin 200 ng/mL (10-122)
== END 2021-04-19 08:17 | disposition home or self-care (01) ==
LOC: HO.HMGCLDS 08:16
PROVIDERS: PCP Internal Medicine; Visit Provider Internal Medicine
DX: R79.89 Other specified abnormal findings of blood chemistry (principal)
CPT/HCPCS: 36415; 82728

== ENCOUNTER 2021-10-22 10:06 | Outpatient (REF) | payer OTHER, SELFPAY ==
--- NOTE | ~2021-10-22 | XR_ITS ---
EXAMINATION: XR WRIST, RIGHT CLINICAL INFORMATION: Right wrist pain, sprain. COMPARISON: None TECHNIQUE: PA, lateral, and oblique views of the right wrist. FINDINGS: The distal radius, ulna and radioulnar joint are normal. Carpal bones are intact. The joint spaces of the wrist are normal. No acute fracture, subluxation or focal soft tissue swelling. XR/XR wrist RT min 3V IMPRESSION: Normal right wrist.
== END 2021-10-22 10:07 | disposition home or self-care (01) ==
LOC: HO.HMGCX 10:06
PROVIDERS: PCP Internal Medicine; Visit Provider Internal Medicine
DX: S63.501A Unspecified sprain of right wrist, initial encounter (principal)
CPT/HCPCS: 73110

== ENCOUNTER 2022-09-15 10:51 | Outpatient (AMB) | payer OTHER, SELFPAY ==
--- NOTE | 2022-09-15 10:54 | MHC.OFFWIV ---
Intake Vital Signs 09/15/22 10:56 BP 120/82 Blood Pressure Location Lt brachial Position Sitting Pulse 102 H Pulse Source Pulse Oximeter Temp 98 F Temp Source Temporal Artery Scan Pulse Oximetry (%) 96 Oxygen Delivery Method Room Air Intake Visit Reasons: ?sore throat, cough, ear pain (both) (lobby) Intake Note: Patient here for slight cough, ear pain, sore throat, stomach ache, dizziness and headaches fevers which she has been experiencing these sx since thursday morning. Patient Tobacco Use Status: Former Tobacco user Allergies No Known Allergies [No Known Allergies*] Allergy (Verified 09/15/22 11:16) Medication List - Last Reconciled 09/15/22 by Brant Sánchez MD albuterol sulfate 2.5 mg (3 mL) inhalation QID PRN albuterol sulfate 90 mcg/actuation 2 puffs inhalation Q6H PRN alcohol swabs (Alcohol Prep Pads) Patient to check blood sugar once daily blood sugar diagnostic (FreeStyle Lite Strips) patient to check blood sugar once daily blood-glucose meter (FreeStyle Lite Meter kit) patient to check blood sugar once daily glipizide-metformin 5-500 mg 1 tab PO DAILY lancets (FreeStyle Lancets) Patient to check blood sugar once daily lisinopril 5 mg PO DAILY metformin 500 mg PO DAILY multivitamin 1 tab PO DAILY Do you need a note to return to daycare/school/sports/work: No HPI ?sore throat, cough, ear pain (both) (lobby) HPI Details Patient presents for a sick visit. Reporting symptoms of sinus congestion, sore throat and difficulty swallowing. Low-grade fever. No family member is sick. No recent travel. Patient reports symptoms of malaise and fatigue. [facility] Medical History Dyslipidemia Mild intermittent asthma Type 2 diabetes mellitus without complication, without long-term current use of insulin Surgical History Hx of section Family History Mother Fibromyalgia Father Diabetes Hypertension High cholesterol Social History Household Members: Family Housing: Apartment Do you presently have visiting nurse or other home services: No Patient Tobacco Use Status: Former Tobacco user Tobacco use type: Cigarette e-Cigarette/Vaping Use: Never Used Second Hand Smoke Exposure: No service: No Current occupational status: disabled Current occupational exposures/hazards: No Cognitive needs: No Hearing needs: No Vision needs: Yes Female Reproductive History Menstrual Age of Menarche: 12 Physical Exam Vital Signs: Last Vital Signs Temp 98 F 09/15/22 10:56 Pulse 102 H 09/15/22 10:56 BP 120/82 09/15/22 10:56 Pulse Ox 96 09/15/22 10:56 Oxygen Delivery Method Room Air 09/15/22 10:56 Const General: cooperative and healthy appearing Nutritional Appearance: well nourished Orientation/consciousness: patient oriented x3 Limitations: no limitations HEENT Head: Yes normal to inspection Eyes General: appearance normal, both eyes and all related structures Neck Neck: Yes normal visual inspection Chest Chest palpation & inspection: normal palpation of entire chest wall Resp Effort & Inspection: normal respiratory effort Neuro General: patient oriented x3 Results AMB Rapid Strep AMB Rapid Strep Negative Last Edit by JAH Clancy on 09/15/22 11:08 Results Reviewed Results Reviewed: Laboratory Last Values Strep Scn [facility] Negative 09/15/22 11:07 Assessment & Plan Assessment & Plan (1) Upper respiratory tract infection: Code(s): J06.9 - Acute upper respiratory infection, unspecified Plan: Antibiotics ordered. Increase fluid intake. Tylenol for aches and pains. If symptoms worsen, follow-up here for a recheck. Orders: Orders AMB Rapid Strep Screen Today Z13.9 - Encounter for screening, unspecified Coding Level of Care Code Est Pt Level 3 (62786) Diagnoses Upper respiratory tract infection J06.9
[2022-09-15 10:56] VITALS: BP 120/82; PULSE 102; TEMP 36.6; O2SAT 96
== END 2022-09-15 11:53 | disposition home or self-care (01) ==
PROVIDERS: PCP Internal Medicine; Visit Provider Internal Medicine
DX: Z13.9 Encounter for screening, unspecified (principal); J06.9 Acute upper respiratory infection, unspecified
CPT/HCPCS: 87880; 99213

== ENCOUNTER 2022-10-01 11:16 | Outpatient (REF) | payer OTHER, SELFPAY ==
[2022-10-01 13:03] LABS: MANUAL DIFF FLAG NO
[2022-10-01 13:23] LABS: Basophils Absolute Auto 0.1 X10*3/uL (0.0-0.2); Basophils Percent Auto 0.8 % (0-2); Eosinophils Absolute Auto 0.2 X10*3/uL (0.0-0.4); Eosinophils Percent Auto 2.3 % (0-4); Hematocrit 47.4 % (37.0-47.0); Hemoglobin 15.2 g/dl (12.0-16.0); Imm Gran Abs Auto 0.03 X10*3/uL (0.00-0.03); Imm Gran Pct Auto 0.3 % (0.0-0.4); Lymphocytes Absolute Auto 2.5 X10*3/uL (1.2-4.9); Lymphocytes Percent Auto 27.4 % (20-40); Mean Corpuscular HGB Conc 32.1 g/dl (31.0-35.0); Mean Corpuscular Hemoglobin 27.1 pg (27.0-33.0); Mean Corpuscular Volume 84.6 fL (80.0-98.0); Mean Platelet Volume 10.1 fL (9.4-12.3); Monocytes Absolute Auto 0.5 X10*3/uL (0.1-1.2); Neutrophils Percent Auto 64.2 % (45-73); Platelet Count 310 X10*3/uL (160-400); Red Cell Distribution Width 12.2 % (11.0-16.0); White Blood Count 9.3 X10*3/uL (4.8-10.8)
[2022-10-01 13:46] LABS: Alanine Aminotransferase 29 U/L (0-31); Anion Gap 12 (12-20); Aspartate Amino Transferase 20 U/L (5-31); Blood Urea Nitrogen 7 mg/dL (9-16); Calcium 8.9 mg/dL (8.4-10.2); Carbon Dioxide 28 mmol/L (22-29); Chloride 102 mmol/L (96-108); Cholesterol 188 mg/dL; Estimated Glomerular Filt Rate > 60; Glucose Fasting 157 mg/dL (60-99); HDL Cholesterol 48 mg/dL; LDL Cholesterol Calculated 113 mg/dl; Potassium 4.1 mmol/L (3.3-5.1); Sodium 138 mmol/L (135-145); Triglycerides 139 mg/dL
[2022-10-01 14:05] LABS: Ferritin 282 ng/mL (10-122)
[2022-10-01 14:54] LABS: Creatinine Urine 187.89 mg/dL; Microalbum/Creatinine Ratio Ur 12.2 ug/mg cr
== END 2022-10-01 11:17 | disposition home or self-care (01) ==
LOC: HO.HMGCLDS 11:16
PROVIDERS: PCP Internal Medicine; Visit Provider Internal Medicine
DX: J45.20 Mild intermittent asthma, uncomplicated (principal); E78.5 Hyperlipidemia, unspecified; E11.9 Type 2 diabetes mellitus without complications; E66.01 Morbid (severe) obesity due to excess calories; R79.89 Other specified abnormal findings of blood chemistry; Z13.9 Encounter for screening, unspecified
CPT/HCPCS: 36415; 80048; 80061; 82043; 82728; 84443; 84450; 84460; 85025

== ENCOUNTER 2022-10-01 11:44 | Outpatient (AMB) | payer OTHER, SELFPAY ==
[2022-10-01 12:16] VITALS: BP 122/76; PULSE 80; TEMP 36.3; O2SAT 98; BMI 57.4
--- NOTE | 2022-10-01 12:16 | AM.OFFWIN_ITS ---
Intake Vital Signs 10/01/22 12:16 Height 5 ft 5 in Weight 345 lb BMI 57.4 BP 122/76 Blood Pressure Location Rt brachial Position Sitting Pulse 80 Pulse Source Pulse Oximeter Temp 97.4 F Temp Source Temporal Artery Scan Pulse Oximetry (%) 98 Intake Visit Reasons: EST/sore throat /cough(masked lobby) Intake Note: pt is here for c/o sore throat Patient Tobacco Use Status: Former Tobacco user Allergies No Known Allergies [No Known Allergies*] Allergy (Verified 10/01/22 12:32) Medication List - Last Reconciled 10/01/22 by Brant Sánchez MD albuterol sulfate 2.5 mg (3 mL) inhalation QID PRN albuterol sulfate 90 mcg/actuation 2 puffs inhalation Q6H PRN alcohol swabs (Alcohol Prep Pads) Patient to check blood sugar once daily blood sugar diagnostic (FreeStyle Lite Strips) patient to check blood sugar once daily blood-glucose meter (FreeStyle Lite Meter kit) patient to check blood sugar once daily glipizide-metformin 5-500 mg 1 tab PO DAILY lancets (FreeStyle Lancets) Patient to check blood sugar once daily lisinopril 5 mg PO DAILY metformin 500 mg PO DAILY multivitamin 1 tab PO DAILY HPI EST/sore throat /cough(masked lobby) HPI Details Patient presents for a sick visit. Reporting symptoms of sinus congest ion, sore throat and difficulty swallowing. Low-grade fever. No family member is sick. No recent travel. Patient reports symptoms of malaise and fatigue. [facility] Medical History Dyslipidemia Mild intermittent asthma Type 2 diabetes mellitus without complication, without long-term current use of insulin Surgical History Hx of section Family History Mother Fibromyalgia Father Diabetes Hypertension High cholesterol Social History Household Members: Family Housing: Apartment Do you presently have visiting nurse or other home services: No Patient Tobacco Use Status: Former Tobacco user Tobacco use type: Cigarette e-Cigarette/Vaping Use: Never Used Second Hand Smoke Exposure: No service: No Current occupational status: disabled Current occupational exposures/hazards: No Cognitive needs: No Hearing needs: No Vision needs: Yes Female Reproductive History Menstrual Age of Menarche: 12 Physical Exam Vital Signs: Last Vital Signs Temp 97.4 F 10/01/22 12:16 Pulse 80 10/01/22 12:16 BP 122/76 10/01/22 12:16 Pulse Ox 98 10/01/22 12:16 BMI result Body Mass Index 57.4 Const General: cooperative and healthy appearing Nutritional Appearance: well nourished Orientation/consciousness: patient oriented x3 Limitations: no limitations HEENT Head: Yes normal to inspection Eyes General: appearance normal, both eyes and all related structures Neck Neck: Yes normal visual inspection Chest Chest palpation & inspection: normal palpation of entire chest wall Resp Effort & Inspection: normal respiratory effort Neuro General: patient oriented x3 Results AMB Rapid Strep AMB Rapid Strep Negative Last Edit by Aris Mckeon CMA on 10/01/22 12 :31 Results Reviewed Results Reviewed: Laboratory Last Values Strep Scn [facility] Negative 10/01/22 12:31 Assessment & Plan Assessment & Plan (1) Upper respiratory tract infection: Code(s): J06.9 - Acute upper respiratory infection, unspecified Plan: Antibiotics ordered. Increase fluid intake. Tylenol for aches and pains. If symptoms worsen, follow-up here for a recheck. Orders: Orders AMB Rapid Strep Screen Today Z13.9 - Encounter for screening, unspecified Coding Level of Care Code Est Pt Level 3 (83891) Diagnoses Upper respiratory tract infection J06.9
== END 2022-10-01 12:39 | disposition home or self-care (01) ==
PROVIDERS: PCP Internal Medicine; Visit Provider Internal Medicine
DX: J06.9 Acute upper respiratory infection, unspecified (principal)
CPT/HCPCS: 87880; 99213

== ENCOUNTER → 2022-12-18 11:23 | Outpatient (BNVA) | payer OTHER, SELFPAY | PROVIDERS: Visit Provider Advanced Practice Midwife ==

== ENCOUNTER 2023-01-21 08:23 | Outpatient (REF) | payer OTHER, SELFPAY ==
[2023-01-21 11:41] LABS: Estimated Average Glucose 157 mg/dL; Hemoglobin A1c % 7.1 % (<6.0)
[2023-01-21 12:01] LABS: Alanine Aminotransferase 23 U/L (0-31); Anion Gap 16 (12-20); Aspartate Amino Transferase 20 U/L (5-31); Blood Urea Nitrogen 11 mg/dL (9-16); Calcium 9.3 mg/dL (8.4-10.2); Carbon Dioxide 25 mmol/L (22-29); Chloride 102 mmol/L (96-108); Cholesterol 196 mg/dL (<200); Estimated Glomerular Filt Rate > 60; Glucose Fasting 151 mg/dL (60-99); HDL Cholesterol 59 mg/dL (>40); LDL Cholesterol Calculated 107 mg/dL (<100); Potassium 3.9 mmol/L (3.3-5.1); Sodium 139 mmol/L (135-145); Triglycerides 153 mg/dL (<150)
== END 2023-01-21 08:24 | disposition home or self-care (01) ==
LOC: HO.HMGCLDS 08:23
PROVIDERS: PCP Internal Medicine; Visit Provider Internal Medicine
DX: E78.5 Hyperlipidemia, unspecified (principal); E11.9 Type 2 diabetes mellitus without complications; F33.9 Major depressive disorder, recurrent, unspecified
CPT/HCPCS: 36415; 80048; 80061; 83036; 84450; 84460

== ENCOUNTER 2023-01-27 10:49 | Outpatient (AMB) | payer OTHER, SELFPAY ==
--- NOTE | 2023-01-27 11:17 | MHC.PC.OV ---
Vital Signs 01/27/23 11:20 Height 5 ft 5 in Weight 351 lb 8 oz BMI 58.5 BP 130/80 Blood Pressure Location Lt brachial Position Sitting Pulse 88 Pulse Source Pulse Oximeter Pulse Oximetry (%) 98 Oxygen Delivery Method Room Air Intake Visit Reasons: Physical exam Intake Note: Pt is here for her Annual PE Is last menstrual period known: Yes Last menstrual period: 11/22/22 Allergies No Known Allergies [No Known Allergies*] Allergy (Verified 01/27/23 11:54) Medication List - Last Reconciled 01/27/23 by Bethanie Masters MD albuterol sulfate 2.5 mg (3 mL) inhalation QID PRN albuterol sulfate 90 mcg/actuation 2 puffs inhalation Q6H PRN alcohol swabs (Alcohol Prep Pads) Patient to check blood sugar once daily blood sugar diagnostic (FreeStyle Lite Strips) patient to check blood sugar once daily blood-glucose meter (FreeStyle Lite Meter kit) patient to check blood sugar once daily glipizide-metformin 5-500 mg 1 tab PO DAILY lancets (FreeStyle Lancets) Patient to check blood sugar once daily metformin 500 mg PO DAILY Tobacco use date assessed: 01/27/23 Dental Screening Dental Screen Date: 01/27/23 Did you have a dental visit in the last 12 months?: No Did you have a dental problem in the last 6 months where you did not have access to dental care?: No Was dental information given to patient?: No HPI HPI Comments History of Present Illness Details 37-year-old lady here today for physical exam. She has an appointment for her cervical cancer screening and pelvic exam 02/19/2023 at [facility]. She has diabetes mellitus, currently on metformin-glipizide 5-500 mg which he takes at night and takes a metformin 500 mg in a.m.. Patient however states that she keeps forgetting to take her morning dose of metformin, and has not really been compliant with her diet nor does she get any regular exercise. Latest labs showed higher hemoglobin A1c at 7.1% compared to 6.9% on previous visit, and fasting lipids showed triglycerides and LDL cholesterol not at goal. She is also overdue for her diabetes retinopathy screening. Has not yet had her COVID booster, declines, but would like to get her flu vaccine today. [facility], [facility] Medical History (Updated 01/27/23 @ 12:07 by Bethanie Masters MD) Type 2 diabetes mellitus with hyperglycemia, without long-term current use of insulin Mild intermittent asthma Dyslipidemia Type 2 diabetes mellitus without complication, without long-term current use of insulin Surgical History Hx of section Family History Mother Fibromyalgia Father Diabetes Hypertension High cholesterol Social History Household Members: Family Housing: Apartment Do you presently have visiting nurse or other home services: No Patient Tobacco Use Status: Former Tobacco user Tobacco use type: Cigarette e-Cigarette/Vaping Use: Never Used Second Hand Smoke Exposure: No service: No Current occupational status: disabled Current occupational exposures/hazards: No Cognitive needs: No Hearing needs: No Vision needs: Yes Female Reproductive History Menstrual Age of Menarche: 12 Date of last menstrual period: 11/22/22 Questionnaire PHQ-9 Over the last 2 weeks, how often have you been bothered by any of the following problems? 1. Little interest or pleasure in doing things: several days 2. Feeling down, depressed, or hopeless: several days 3. Trouble falling or staying asleep, or sleeping too much: several days 4. Feeling tired or having little energy: several days 5. Poor appetite or overeating: several days 6. Feeling bad about yourself - or that you are a failure or have let yourself or your family down: several days 8. Moving or speaking so slowly that other people could have noticed. Or the opposite - being so fidgety or restless that you have been moving around a lot more than usual: not at all 9. Thoughts that you would be better off or of hurting yourself in some way: not at all Depression Screening Interpretation: Positive Depression Screening Follow-up: Existing condition and Declines treatment (Has tried Wellbutrin in the past, did not help, declined medication or referral for counseling) Depression Screening Done: Yes 34851 - PHQ-9 Billing: Yes Source: Developed by Drs. Norman Dorantes, Aminah Greer, Sina Jean and colleagues, with an educational kimi from [employer]. Thrive Questionnaire Date Thrive assessed: 01/28/23 What is your living situation today?: I have a steady place to live Within the past 12 months, did the food you bought not last and you didn't have the money to get more?: Never true Within the past 12 months, did you worry whether your food would run out before you got money to buy more?: Never true Do you have trouble paying for medicines?: No Do you have trouble getting transportation to medical appointments?: No Do you have trouble paying your heating and electricity bill?: No Do you have trouble taking care of your child, family member or friend?: No Do you have trouble with day-to-day activities such as bathing, preparing meals, shopping, managing finances, etc.?: No Are you currently unemployed and looking for a job?: No Are you interested in more education?: No AUDIT C Alcohol Use Questionnaire (AUDIT-C) 1. How often do you have a drink containing alcohol?: 2-4 times a month 2. How many drinks containing alcohol do you have on a typical day when you are drinking?: 3 or 4 3. How often do you have six or more drinks on one occasion?: Never Total Score: 3 Score Reviewed/Action Taken: Yes (Strongly advised to cut back or abstain from alcohol use) FIGUEROA-7 AMB Questionnaire FIGUEROA-7 Date FIGUEROA - 7 assessed: 01/28/23 Feeling nervous, anxious, or on edge: 1 = Several days Not being able to stop or control worryin = Several days Worrying too much about different things: 1 = Several days Trouble relaxin = Not at all Being so restless that it is hard to sit still: 0 = Not at all Becoming easily annoyed or irritable: 1 = Several days Feeling afraid as if something awful might happen: 0 = Not at all Total FIGUEROA-7 score (0-4 normal; 5-9 mild; 10-14 moderate; 15-21 severe): 4 Source: Developed by Drs. Norman Dorantes, Aminah Greer, Sina Jean and colleagues, with an educational kimi from [employer]. FIGUEROA-7 Assessment Billing FIGUEROA-7 Assessment Tool: FIGUEROA-7 Assessment 51804 Review of Systems Const Denies chills, Denies fever(s), Denies headache(s), Denies malaise and Reports weight gain Eyes Denies change in vision ENT Denies headache(s), Denies epistaxis and Denies nasal discharge Card Denies chest pain, Denies irregular heart rhythm and Denies lightheadedness Resp Denies chest congestion, Denies cough and Denies hemoptysis GI Denies change in bowel habits, Denies heartburn and Denies nausea Denies difficulty voiding, Denies dysuria and Denies urinary incontinence Musc Reports no additional complaints Skin/Breast Denies rash Neuro Reports no additional complaints and Denies headache(s) Psych Reports no additional complaints and Reports as per HPI Endo Reports no additional complaints Lowell/Lymph Denies easy bleeding and Denies easy bruising Aller/Immun Reports no additional complaints Physical exam (Primary Care) Vital Signs: Last Vital Signs Pulse 88 01/27/23 11:20 BP 130/80 01/27/23 11:20 Pulse Ox 98 01/27/23 11:20 Oxygen Delivery Method Room Air 01/27/23 11:20 BMI result Body Mass Index 58.5 Tobacco/Smoking Status: Tobacco use Status Tobacco use date assessed 01/27/23 01/27/23 11:29 Patient Tobacco Use Status Former Tobacco user 01/27/23 11:18 Tobacco use type Cigarette 01/27/23 11:18 e-Cigarette/Vaping Use Never Used 01/27/23 11:18 Depression Screening Interpretation: Positive Depression Screening Follow-up: Existing condition and Declines treatment (Has tried Wellbutrin in the past, did not help, declined medication or referral for counseling) Thrive Assessment: Date of Thrive Assessment Date Thrive assessed 12/21/20 01/27/23 11:18 Const General: cooperative, comfortable and no acute distress Nutritional Appearance: obese morbidly obese Orientation/consciousness: patient oriented x3 HENMT Head: Yes normocephalic Mouth: Normal oral and palatal mucosa present, oropharynx normal and moist mucous membranes Eyes General: appearance normal, both eyes and all related structures Neck Neck: Yes full ROM, Yes no lymphadenopathy and Yes supple Chest Chest palpation & inspection: normal inspection of the chest Breast/axilla palpation: normal palpation of the breasts Resp Effort & Inspection: normal respiratory effort and no cough Cardio Rhythm: regular rhythm Heart sounds: S1 normal heart sound present and S2 normal heart sound present GI Other: Obese, normal bowel sounds, soft, nontender, no mass palpated General: Yes no CVA tenderness and Yes deferred (Has an upcoming appointment with her OBGYN for her pelvic exam and Pap smea) Back/Spine/Pelvis Back: no CVA tenderness and No back tenderness Skin General skin exam: no rashes or lesions noted and turgor normal Neuro General: patient oriented x3, gait normal, tone normal, moves all extremities, no focal motor deficits and CN's II-XI intact bilaterally Gait exam (Neuro): Normal gait present Extrem General: Yes full ROM, Yes no joint enlargement, Yes no clubbing, cyanosis or edema, Yes no calf tenderness and Yes normal gait Psych Appearance: grossly normal and well kempt Mental Status: mental status grossly normal Speech and movement: Normal speech and movement present Affect: normal affect Attitude: cooperative Thought process: Normal thought process present Thought content: Normal thought content present Office Procedures Flu Questionnaire Does the patient have a severe egg allergy?: No Does the patient have severe life threatening allergies?: No Does the patient have a fever or illness today?: No Has the patient ever had Guillain-[place] Syndrome?: No Has the patient ever had any past reaction to a flu shot?: No Immunizations flu vacc [id number] 6mos up(PF) 60 mcg(15 mcgx4)/0.5 mL IM syringe Performing Provider: Bethanie Masters MD Performing Location: [facility] Administered by: Sabine Adler CMA on 01/27/23 12:14 Dose Route Admin Location Dispensed Lot Number Expiration Date [facility] Materials Coordinator 0.5 mL IM Left Deltoid 0.5 mL [id number] 08/16/23 07209-613-22 NEURONIX VIS Given Date VIS Provided VIS Publication Date 01/27/23 Single Vaccine 20 Eligibility Eligibility Date Funding Source Not [facility] Eligible 01/27/23 Private Results Reviewed Results Reviewed: Laboratory Tests 01/21/23 08:27 Estimat Average Glucose 157 Hemoglobin A1c % 7.1 H Name: Jami Mathew Age/Sex: 37/F : 1985 Unit#: [id number] Attend Dr: Bethanie Masters MD Re01/21/23 Status: DEP REF Location: [facility] Disch: SPEC : [id number] BERNICE: 01/21/23 STATUS: COMP REQ : [id number] RECD: 01/21/23-[address]: Bethanie Masters MD COMP: 01/21/23-1200 ENTERED: 01/21/[address] [facility] [address]: ORDERED: Met Prof Fast, AST, ALT, Lipid Panel Test Result Flag Reference Site Sodium 139 135-145 mmol/L Potassium 3.9 3.3-5.1 mmol/L CL 102 96-108 mmol/L CO2 25 22-29 mmol/L Gap 16 12-20 BUN 11 9-16 mg/dL Creat 0.64 0.5-1.4 mg/dL EGFR > 60 NOTE: For -[place] individuals, multiply the result by 1.210. Chronic Kidney Disease: Estimated GFR < 60 mL/min/1.73m2 Severe Kidney Disease: Estimated GFR < 15 mL/min/1.73m2 FBS 151 H 60-99 mg/dL A fasting glucose of 126 mg/dl or greater on more than one occasion is considered diagnostic of diabetes. CA 9.3 8.4-10.2 mg/dL AST (GOT) 20 5-31 U/L ALT (GPT) 23 0-31 U/L Triglyceride 153 H <150 mg/dL Desirable Triglyceride: less than 150 mg/dL Borderline High Triglyceride 150-199 mg/dL High Triglyceride: 200-499 mg/dL Very High Triglyceride: greater than or equal to 5OO mg/dL Cholesterol 196 <200 mg/dL Desirable Cholesterol: less than 200 mg/dL Borderline High Cholesterol: 200-239 mg/dL High Cholesterol: greater than 239 mg/dL LDL Calculated 107 H <100 mg/dL Desirable LDL: less than 100 mg/dL Near Optimal/Above Optimal LDL: 110-129 mg/dL Borderline High LDL: 130-159 mg/dL High LDL: 160-189 mg/dL Very High LDL: greater than or equal to 190 mg/dL HDL 59 >40 mg/dL Desirable HDL: greater than 40 mg/dL Note: This HDL assay may give artificially low results in patients with liver disease. Assessment and Plan Assessment & Plan (1) Annual visit for general adult medical examination with abnormal findings: Code(s): Z00.01 - Encounter for general adult medical examination with abnormal findings Plan: Reviewed recent fasting labs with patient. Recommended dental visit every 6 months and regular eye exams once a year for diabetes retinopathy screening Take adequate calcium in diet and vitamin-D 3 at 2000 IU per cap once a day, in addition to weight-bearing exercises to help maintain good muscle tone and weight control. Instructed to do self-breast exam, and recommended to get yearly mammogram, starting at age 40. Has an appointment for her cervical cancer screening and pelvic exam next month with [facility] already scheduled. Flu vaccine given today, up-to-date with her in Prevnar 20, declined getting COVID booster does (2) Type 2 diabetes mellitus with hyperglycemia, without long-term current use of insulin: Code(s): E11.65 - Type 2 diabetes mellitus with hyperglycemia Plan: Hemoglobin A1c now at 7.1%, has not really been compliant with her medications or dietary recommendations. Will discontinue glipizide-metformin and will switch to just metformin 500 mg per tablet to be taken 1 tablet twice a day with meals, added Jardiance 10 mg per tablet, to take 1 tablet in a.m. an hour before breakfast only with the glass of water. Patient advised to cut back on her caloric intake, get regular exercise. Check with insurance to see who she can go to for her diabetes retinopathy screening which she needs to yearly. Stressed importance of following recommendations for diet, medication and exercise. Flu vaccine given today, patient already up-to-date with her Prevnar 20, declined COVID booster. Will see her back for follow-up after fasting labs done in 3 month (3) Morbid obesity due to excess calories: Code(s): E66.01 - Morbid (severe) obesity due to excess calories Plan: Discussed need to increase activity and wt reduction. Recommended focusing on improving your health instead of dieting. : Eat Mediterranean diet, limit foods high in fat, sugar, and calories, eat slowly, pay attention to portion sizes, plan your meals ahead of time, start regular physical activity 150 minutes of moderate intensity exercise or 90 minutes/week of vigorous exercise and increase water intake. (4) Mild intermittent asthma: Code(s): J45.20 - Mild intermittent asthma, uncomplicated Plan: Has history of smoking, using albuterol inhaler as needed for episodes of bronchospasm which has been infrequent patient already had her Prevnar 20, flu vaccine given today, declined getting COVID booster (5) Dyslipidemia: Code(s): E78.5 - Hyperlipidemia, unspecified Plan: Reviewed recent fasting lipid levels, with LDL cholesterol and triglycerides not at goal. Will recheck again fasting lipids in 3 months and if his LDL cholesterol , after and stressing Warthin's of following recommended diet and getting regular exercise, to promote weight loss. Will start on statin if lipid level still not at goal. Hopefully starting Jardiance will help with losing weight (6) Major depression, recurrent: Code(s): F33.9 - Major depressive disorder, recurrent, unspecified Plan: Has been tried on Wellbutrin in the past which has not helped, declined to start medication at present time, patient states she is able to control her mood swings through breathing exercises, declines referral for counseling. Advised patient to call crisis center if she starts having any suicidal ideations and follow-up with the as if she feels that she needs to be started on treatment (7) Encounter for physical examination: Code(s): Z00.00 - Encounter for general adult medical examination without abnormal findings Orders: Orders Lipid Panel 3 Months E11.65 - Type 2 diabetes mellitus with hyperglycemia, E66.01 - Morbid (severe) obesity due to excess calories Alanine Aminotransferase 3 Months E11.65 - Type 2 diabetes mellitus with hyperglycemia, E66.01 - Morbid (severe) obesity due to excess calories Microalbumin, Random (w Creat) 3 Months E11.65 - Type 2 diabetes mellitus with hyperglycemia, E66.01 - Morbid (severe) obesity due to excess calories Hemoglobin A1c 3 Months E11.65 - Type 2 diabetes mellitus with hyperglycemia, E66.01 - Morbid (severe) obesity due to excess calories Aspartate Amino Transferase 3 Months E11.65 - Type 2 diabetes mellitus with hyperglycemia, E66.01 - Morbid (severe) obesity due to excess calories Basic Metabolic Panel Fasting 3 Months E11.65 - Type 2 diabetes mellitus with hyperglycemia, E66.01 - Morbid (severe) obesity due to excess calories Influenza [id number] Immunization 01/27/23 Z23 - Encounter for immunization Medications: New empagliflozin (Jardiance) 10 mg PO QAM 90 tabs 1RF Changed From metformin take in am with breakfast 500 mg PO DAILY 30 tabs 5RF To metformin take in am with breakfast 500 mg PO BIDWMEAL 3 months 180 tabs 3RF Discontinued glipizide-metformin 5-500 mg Discontinued Reason: Doctor's Order 1 tab PO DAILY 90 tabs 0RF Coding Level of Care Code Est Pt Prev Care 18-39y(72180) Diagnoses Annual visit for general adult medical examination with abnormal findings Z00.01 Type 2 diabetes mellitus with hyperglycemia, without long-term current use of insulin E11.65 Morbid obesity due to excess calories E66.01 Mild intermittent asthma J45.20 Dyslipidemia E78.5 Major depression, recurrent F33.9 Encounter for physical examination Z00.00 Additional Codes FIGUEROA-7 Assessment Billing - FIGUEROA-7 Assessment Tool: FIGUEROA-7 Assessment 55586 ([id number])
[2023-01-27 11:20] VITALS: BP 130/80; PULSE 88; O2SAT 98; BMI 58.5
== END 2023-01-27 12:14 | disposition home or self-care (01) ==
PROVIDERS: PCP Internal Medicine; Visit Provider Internal Medicine
DX: Z00.01 Encounter for general adult medical examination with abnormal findings (principal); E11.65 Type 2 diabetes mellitus with hyperglycemia; F33.9 Major depressive disorder, recurrent, unspecified; E66.01 Morbid (severe) obesity due to excess calories; Z68.43 Body mass index [BMI] 50.0-59.9, adult; J45.20 Mild intermittent asthma, uncomplicated; E78.5 Hyperlipidemia, unspecified
CPT/HCPCS: 90471; 90686; 99214; 99395

== ENCOUNTER 2023-02-02 10:17 | Outpatient (AMB) | payer OTHER, SELFPAY ==
[2023-02-02 12:18] VITALS: BP 122/80; PULSE 88; TEMP 36.6; O2SAT 98
--- NOTE | 2023-02-02 12:18 | AM.OFFWIN_ITS ---
Intake Vital Signs 02/02/23 12:18 Height 5 ft 5 in BP 122/80 Blood Pressure Location Rt brachial Position Sitting Pulse 88 Pulse Source Pulse Oximeter Temp 97.8 F Temp Source Oral Pulse Oximetry (%) 98 Oxygen Delivery Method Room Air Intake Visit Reasons: EST/coughing/headache/[phone] Intake Note: pt is here for c.o coughing, headache, green phlem congestion since thursday Patient Tobacco Use Status: Former Tobacco user Allergies No Known Allergies [No Known Allergies*] Allergy (Verified 02/02/23 12:34) Medication List - Last Reconciled 02/02/23 by Brant Sánchez MD albuterol sulfate 2.5 mg (3 mL) inhalation QID PRN albuterol sulfate 90 mcg/actuation 2 puffs inhalation Q6H PRN alcohol swabs (Alcohol Prep Pads) Patient to check blood sugar once daily blood sugar diagnostic (FreeStyle Lite Strips) patient to check blood sugar once daily blood-glucose meter (FreeStyle Lite Meter kit) patient to check blood sugar once daily empagliflozin (Jardiance) 10 mg PO QAM lancets (FreeStyle Lancets) Patient to check blood sugar once daily metformin 500 mg PO BIDWMEAL 3 months Do you need a note to return to daycare/school/sports/work: Yes HPI EST/coughing/headache/[phone] HPI Details Patient presents for a sick visit. Reporting symptoms of sinus congestion, sore throat and difficulty swallowing. Low-grade fever. No family member is sick. No recent travel. Patient reports symptoms of malaise and fatigue. [facility] Medical History (Updated 01/27/23 @ 12:07 by Bethanie Masters MD) Type 2 diabetes mellitus with hyperglycemia, without long-term current use of insulin Mild intermittent asthma Dyslipidemia Type 2 diabetes mellitus without complication, without long-term current use of insulin Surgical History Hx of section Family History Mother Fibromyalgia Father Diabetes Hypertension High cholesterol Social History Household Members: Family Housing: Apartment Do you presently have visiting nurse or other home services: No Patient Tobacco Use Status: Former Tobacco user Tobacco use type: Cigarette e-Cigarette/Vaping Use: Never Used Second Hand Smoke Exposure: No service: No Current occupational status: disabled Current occupational exposures/hazards: No Cognitive needs: No Hearing needs: No Vision needs: Yes Female Reproductive History Menstrual Age of Menarche: 12 Physical Exam Vital Signs: Last Vital Signs Temp 97.8 F 02/02/23 12:18 Pulse 88 02/02/23 12:18 BP 122/80 02/02/23 12:18 Pulse Ox 98 02/02/23 12:18 Oxygen Delivery Method Room Air 02/02/23 12:18 Const General: cooperative and healthy appearing Nutritional Appearance: well nourished Orientation/consciousness: patient oriented x3 Limitations: no limitations HEENT Head: Yes normal to inspection Eyes General: appearance normal, both eyes and all related structures Neck Neck: Yes normal visual inspection Chest Chest palpation & inspection: normal palpation of entire chest wall Resp Effort & Inspection: normal respiratory effort Neuro General: patient oriented x3 Assessment & Plan Assessment & Plan (1) Upper respiratory tract infection: Code(s): J06.9 - Acute upper respiratory infection, unspecified Plan: Antibiotics ordered. Increase fluid intake. Tylenol for aches and pains. If symptoms worsen, follow-up here for a recheck. Plan Antibiotics ordered. Increase fluid intake. Tylenol for aches and pains. If symptoms worsen, follow-up here for a recheck. Coding Level of Care Code Est Pt Level 3 (50739) Diagnoses Upper respiratory tract infection J06.9
== END 2023-02-02 13:25 | disposition home or self-care (01) ==
PROVIDERS: PCP Internal Medicine; Visit Provider Internal Medicine
DX: J06.9 Acute upper respiratory infection, unspecified (principal)
CPT/HCPCS: 99213

== ENCOUNTER 2023-02-19 09:01 | Outpatient (REF) | payer OTHER, SELFPAY ==
[2023-02-25 04:29] LABS: HPV 16 RNA DETECTED (NOT DETECTED); HPV mRNA E6/E7 rflx Detected (Not Detected)
== END 2023-02-19 09:02 | disposition home or self-care (01) ==
LOC: HO.LAB 09:01
PROVIDERS: PCP Internal Medicine; Visit Provider Advanced Practice Midwife
DX: Z01.419 Encounter for gynecological examination (general) (routine) without abnormal findings (principal); E66.01 Morbid (severe) obesity due to excess calories; Z68.43 Body mass index [BMI] 50.0-59.9, adult; Z20.2 Contact with and (suspected) exposure to infections with a predominantly sexual mode of transmission
CPT/HCPCS: 0353U; 87480; 87510; 87624; 87625; 87660; 88142

== ENCOUNTER 2023-02-19 09:01 | Outpatient (AMB) | payer OTHER, SELFPAY ==
[2023-02-19 09:09] VITALS: BP 126/72; BMI 58.2
--- NOTE | 2023-02-19 09:09 | MHC.OFFVIS ---
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 Clerk Required: No Information Interpreted: clinical only Network Admin: Network Admin Present Allergies No Known Allergies [No Known Allergies*] Allergy (Verified 02/19/23 09:10) Medication List - Last Reconciled 02/19/23 by Beatrice Carney CNM albuterol sulfate 2.5 mg (3 mL) inhalation QID PRN albuterol sulfate 90 mcg/actuation 2 puffs inhalation Q6H PRN alcohol swabs (Alcohol Prep Pads) Patient to check blood sugar once daily blood sugar diagnostic (FreeStyle Lite Strips) patient to check blood sugar once daily blood-glucose meter (FreeStyle Lite Meter kit) patient to check blood sugar once daily empagliflozin (Jardiance) 10 mg PO QAM lancets (FreeStyle Lancets) Patient to check blood sugar once daily metformin 500 mg PO BIDWMEAL 3 months Is last menstrual period known: Yes Last menstrual period: 01/30/23 Do you need a note to return to daycare/school/sports/work: No HPI WARD CLERK annual exam HPI Details 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 She has recently changed to a new primary care provider she has diabetes she has just recently started on Jardiance so she is not really sure if it is helping yet or not. Her last Pap smear was in 2017 she does not think she has a history of abnormal she says her last Pap smear was with Patricia Davis the at [facility]. She is sexually active with her boyfriend to uses condoms and is planning a vasectomy. She weighs 350 lb since she is struggles with her weight and has done so all her life. She became tearful talking about it she also says she has struggles when her children have been labeled as obese as well and she is doing what she can to have them play outside and the park but it has been raining and cold they live in a 3rd floor walk-up apartment. 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 She delivered 1 child vaginally and 2 by 1 was preemie. She has quit smoking but she does not take pride in that she just wonders why she can not do the same when it comes to eating. [facility] Medical History Type 2 diabetes mellitus with hyperglycemia, without long-term current use of insulin Mild intermittent asthma Dyslipidemia Type 2 diabetes mellitus without complication, without long-term current use of insulin Surgical History Hx of section Family History Mother Fibromyalgia Father Diabetes Hypertension High cholesterol Social History Household Members: Family Housing: Apartment Do you presently have visiting nurse or other home services: No Patient Tobacco Use Status: Former Tobacco user Tobacco use type: Cigarette e-Cigarette/Vaping Use: Never Used Second Hand Smoke Exposure: No service: No Current occupational status: disabled Current occupational exposures/hazards: No Cognitive needs: No Hearing needs: No Vision needs: Yes Female Reproductive History Menstrual Age of Menarche: 12 Duration of menses: 3-5 days Date of last menstrual period: 01/30/23 control method: none and condoms Total pregnancies: 3 Full term: 3 History of abnormal pap smear: No (2017.negative) Physical Exam Vital Signs: Last Vital Signs BP 126/72 02/19/23 09:09 BMI result Body Mass Index 58.2 Const Other: Patient is morbidly obese her face was extremely red with the appearance of a sunburn or medication side effect patient states she has also always like that whenever she spoke about something with emotional content her face became redder. General: cooperative Nutritional Appearance: obese morbidly obese Chest Chest palpation & inspection: normal inspection of the chest Breast/axilla inspection: normal inspection of the breasts and normal inspection of the axillae Breast/axilla palpation: normal palpation of the breasts and normal palpation of the axillae Speculum Exam - Vagina: normal appearance of the vagina and other Speculum Exam - Cervix: normal appearance of the cervix and Other cervical findings present (limited views) Bimanual exam- vagina & uterus: other (uterus difficult to assess 2' habitus) Bimanual Exam- Adnexa, other: Other (palpation of adnexae limited 2' habitus) Assessment & Plan Assessment & Plan (1) Morbid obesity due to excess calories: Code(s): E66.01 - Morbid (severe) obesity due to excess calories (2) Women's annual routine gynecological examination: Code(s): Z01.419 - Encounter for gynecological examination (general) (routine) without abnormal findings (3) Cervical cancer screening: Comment: last pap 2017, pap 02/19/22... Code(s): Z12.4 - Encounter for screening for malignant neoplasm of cervix Plan -----Discussed in this visit the following: healthy balanced diet, regular and consistent exercise, getting recommended health screens, doing the best she can for her particular health concerns, kegel exercises, pap smear screening and followup recommendations, mammography screening and SBE, normal changes in cycles in her life stage--- .----I reviewed available options for Control Methods and their associated side effect profiles. In particular, we discussed the method most of interest to her.-for now careful use of condoms and partner vasectomy and condom use until he is sperm count goes down to 0 Also discussed that if she ever skipped 3 months without a period that that would need to be evaluated and treated and that was not a healthy situation. Discussed that very often weight has major influence on period regularity Discussed in general terms the challenges of obesity and challenges for her health and efforts she is engaging in to manage this including dietary changes water intake attention to sleep inclusion of a regular exercise have it and dealing with the may need stressors of life that can contribute to obesity in general. Encouraged her to continue in all have her best efforts. Most of the visit was spent exploring with the patient the challenges of life time obesity and exploring what small things might make a difference in terms of starting the journey and finding the motivation and other avenues to explore and suggesting that the sooner she reach a point of readiness to do something about it the better for her health in her family's health. Coding Level of Care Code New Pt Prev Care 18-39yr(93017 Diagnoses Morbid obesity due to excess calories E66.01 Women's annual routine gynecological examination Z01.419 Cervical cancer screening Z12.4
== END 2023-02-19 11:18 | disposition home or self-care (01) ==
LOC: HO.HWSM 09:01
PROVIDERS: PCP Internal Medicine; Visit Provider Advanced Practice Midwife
DX: Z01.419 Encounter for gynecological examination (general) (routine) without abnormal findings (principal); E66.01 Morbid (severe) obesity due to excess calories
CPT/HCPCS: 99385

== ENCOUNTER 2023-03-30 12:03 | Outpatient (REF) | payer OTHER, SELFPAY | END 2023-03-30 12:04 | disposition home or self-care (01) | LOC: HO.LAB 12:03 | PROVIDERS: PCP Internal Medicine; Visit Provider Obstetrics & Gynecology | DX: B97.7 Papillomavirus as the cause of diseases classified elsewhere (principal); Z32.02 Encounter for pregnancy test, result negative | CPT/HCPCS: 57454; 81025; 88305; 88342; 88360 ==

== ENCOUNTER 2023-03-30 12:03 | Outpatient (AMB) | payer OTHER, SELFPAY ==
--- NOTE | 2023-03-30 12:18 | MHC.OFFVIS ---
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 [facility] Medical History Type 2 diabetes mellitus with hyperglycemia, without long-term current use of insulin Mild intermittent asthma Dyslipidemia Type 2 diabetes mellitus without complication, without long-term current use of insulin Surgical History Hx of section Family History (Reviewed 03/30/23 @ 12: by Domingo Starkey MD) Mother Fibromyalgia Father Diabetes Hypertension High cholesterol Social History Household Members: Family Housing: Apartment Do you presently have visiting nurse or other home services: No Patient Tobacco Use Status: Former Tobacco user Tobacco use type: Cigarette e-Cigarette/Vaping Use: Never Used Second Hand Smoke Exposure: No service: No Current occupational status: disabled Current occupational exposures/hazards: No Cognitive needs: No Hearing needs: No Vision needs: Yes Female Reproductive History Menstrual Age of Menarche: 12 Date of last menstrual period: 03/11/23 Review of Systems Const All systems reviewed & are unremarkable except as noted in HPI and below Reports as per HPI and Reports no additional complaints GI Reports no additional complaints Reports no additional complaints Physical Exam Vital Signs: Last Vital Signs BP 124/86 03/30/23 12:19 BMI result Body Mass Index 58.2 Office Procedures Colposcopy Before the procedure was started discussed with the patient the procedure, alternatives & all the risks associated with the procedure (bleeding, infection, injury to vagina, bladder, vessels, possible need for transfusion with all its risks) then patient signed the consent UPT done in the office & negative Pap smear = negative/HPV E6/E7 positive, HPV 16 positive, HPV 18/45-. Speculum inserted, acetic acid used Colposcopy done Transformation zone seen, acetowhite lesions identified at 10+4 o?clock, cervical biopsies taken from 10+4 o?clock, ECC done afterwards. Vaginoscopy of the upper vagina showed no evidence of any aceto-white lesions Monsel solution used for hemostasis. The patient tolerated well . At the end the patient was instructed to call if temp>100.4, abdominal pain, n/v, bleeding; The patient was given the following instructions: nothing per vagina, no intercourse or bath tub use. All questions answered the patient verbalized understanding. Instructed the patient to make an appointment in 2 weeks for follow-up This note was generated with a voice recognition program. Some errors may have been overlooked during the review of this note. Sometimes these errors may affect the content or meaning of a given sentence. 47694-Yuuhqdotz of cervix including upper vagina with biopsy and ECC Procedure code (CPT) selection complete Results AMB Test Urine AMB Test Urine Negative Last Edit by DAVID Lacy on 03/30/23 12:23 Results Reviewed Results Reviewed: Laboratory Last Values [facility] Clinic Negative 03/30/23 12:22 Assessment & Plan Assessment & Plan (1) HPV in female: Comment: Pap smear negative/HPV E6/E 7 positive, HPV 16 positive, HPV 18 and 45 negative Code(s): B97.7 - Papillomavirus as the cause of diseases classified elsewhere Plan: Colposcopy done, see procedure note Orders: Orders AMB HCG Urine Test Today Z32.02 - Encounter for test, result negative AMB Colposcopy Today B97.7 - Papillomavirus as the cause of diseases classified elsewhere Coding Level of Care Code Procedure Only Diagnoses HPV in female B97.7 CPT Codes Colposcopy - CPT: 77412-Jnntnoyct of cervix including upper vagina with biopsy and ECC ([id number])
[2023-03-30 12:19] VITALS: BP 124/86; BMI 58.2
== END 2023-03-30 14:18 | disposition home or self-care (01) ==
LOC: HO.HWS 12:03
PROVIDERS: PCP Internal Medicine; Visit Provider Obstetrics & Gynecology
DX: Z32.02 Encounter for pregnancy test, result negative (principal); R87.810 Cervical high risk human papillomavirus (HPV) DNA test positive
CPT/HCPCS: 57454

== ENCOUNTER 2023-04-15 10:51 | Outpatient (AMB) | payer OTHER, SELFPAY ==
--- NOTE | 2023-04-15 10:53 | A.OFFVIS_ITS ---
Intake Vital Signs 04/15/23 10:56 Height 5 ft 5 in Weight 348 lb 5.286 oz BMI 58.0 BP 110/74 Intake Visit Reasons: Colpo Follow up Linotype Worker Required: No Information Interpreted: non-clinical & clinical Learn To Swim Instructor: Learn To Swim Instructor Present Accompanied by: Significant Other Allergies No Known Allergies [No Known Allergies*] Allergy (Verified 04/15/23 10:56) Is last menstrual period known: Yes Last menstrual period: 03/11/23 Post menopausal: No Patient : No Do you need a note to return to daycare/school/sports/work: Yes (for surgery on thursday) HPI HPI Comments History of Present Illness Details Presenting post colpo for follow-up. The patient is doing well with no complaints. The pathology showed the following: A. Cervix, 4:00, biopsy: Squamous and endocervical glandular mucosa with focal detached inflamed atypical squamous epithelium; suspicious for high grade squamous intraepithelial lesion/ severe dysplasia. B. Cervix, 10:00, biopsy: Squamous mucosa; negative for dysplasia; no endocervical glandular mucosa present. C. Endocervix, curettage: Scant squamous and endocervical glandular epithelium with mucus and inflammation Pap smear was negative/HPV E6/E7 positive, HPV 16 positive, HPV 18/45 negative [facility] Medical History Type 2 diabetes mellitus with hyperglycemia, without long-term current use of insulin Mild intermittent asthma Dyslipidemia Type 2 diabetes mellitus without complication, without long-term current use of insulin Surgical History Hx of section Family History Mother Fibromyalgia Father Diabetes Hypertension High cholesterol Social History Household Members: Family Housing: Apartment Do you presently have visiting nurse or other home services: No Patient Tobacco Use Status: Former Tobacco user Tobacco use type: Cigarette e-Cigarette/Vaping Use: Never Used Second Hand Smoke Exposure: No service: No Current occupational status: disabled Current occupational exposures/hazards: No Cognitive needs: No Hearing needs: No Vision needs: Yes Female Reproductive History Menstrual Age of Menarche: 12 Date of last menstrual period: 03/11/23 Total pregnancies: 2 Full term: 2 Review of Systems Card Reports as per HPI and Reports no additional complaints Resp Reports as per HPI and Reports no additional complaints GI Reports as per HPI and Reports no additional complaints Reports as per HPI Physical Exam Const General: cooperative, healthy appearing and comfortable Chest Chest palpation & inspection: normal inspection of the chest and normal palpation of entire chest wall Breast/axilla inspection: normal inspection of the breasts and normal inspection of the axillae Breast/axilla palpation: normal palpation of the breasts, normal palpation of the axillae and no axillary lymphadenopathy Resp Effort & Inspection: normal respiratory effort Auscultation: clear to auscultation bilaterally Percussion: percussion normal Cardio Palpation: normal PMI Rate: regular rate Rhythm: regular rhythm Heart sounds: no murmurs and no rubs Peripheral pulses: Peripheral pulses 2+ throughout GI Inspection: Yes normal to inspection Palpation (GI): Soft to palpation, nontender, no guarding, not rigid and No hepatosplenomegaly present Percussion: Yes normal to percussion Auscultation: normal bowel sounds Rectal Exam - Female: deferred Assessment & Plan Assessment & Plan (1) Cervical intraepithelial neoplasia grade III with severe dysplasia: Code(s): D06.9 - Carcinoma in situ of cervix, unspecified Plan: Discussed with the patient the pathology results of the colposcopy biopsies & endocervical curettage (suspicious for severe dysplasia-NICOLE 3). Discussed with the patient the sensitivity specificity, positive and negative predictive value in detecting cervical cancer in addition discussed the regression, persistence and progression rates. Addition discussed with the patient the risk of progression to cancer and impact of excision procedure on her future . Recommended excisional procedures, LEEP cone with post cone ECC. Discussed with the patient the procedure, its benefits and risks including bleeding, infection, possible need for blood transfusion with all its risk ( HIV, syphilis, Hepatitis, anaphylaxis shock, others..), injury to bladder, rectum, possible need for re-excision or hysterectomy for positive margins, potential need for hysterectomy, possible future negative impact on fertility including ( cervical stenosis, incompetence , increase risk for c section 2ndary to cervical scarring and failure of dilatation). ). Also discussed the patient options of anesthesia either paracervical block versus IV sedation/MAC, prefers to proceed with IV sedation/MAC . All questions answered, the patient verbalized understanding and signed the consent. Instructions given to patient to schedule a postop appointment. Coding Level of Care Code Est Pt Level 3 (46342) Diagnoses Cervical intraepithelial neoplasia grade III with severe dysplasia D06.9
[2023-04-15 10:56] VITALS: BP 110/74; BMI 58.0
== END 2023-04-15 13:30 | disposition home or self-care (01) ==
LOC: HO.HWS 10:51
PROVIDERS: PCP Internal Medicine; Visit Provider Obstetrics & Gynecology
DX: D06.9 Carcinoma in situ of cervix, unspecified (principal)
CPT/HCPCS: 99213

== ENCOUNTER → 2023-04-15 10:51 | Outpatient (BNVA) | payer OTHER, SELFPAY | PROVIDERS: PCP Internal Medicine; Visit Provider Obstetrics & Gynecology | DX: D06.9 Carcinoma in situ of cervix, unspecified (principal) | CPT/HCPCS: 99212 ==

== ENCOUNTER 2023-04-23 12:19 | Day surgery (SDC) | payer OTHER, SELFPAY ==
--- NOTE | 2023-04-21 14:30 | HO.ANESPROP2 ---
Documented by User: Ivanna Iglesias NP 04/21/23 14:32 HPI - Anesthesia Eval Consult details Narrative: 37yo F for Loop Electric Excision Procedure, Possible Loop Electrical Excision Procedure, Cone and Post Cone Endocervical Curettage Anesthesia Pre-Procedure Meds Is the patient on any of the following meds?: Any other SGL-1 drugs or drugs that delay gastric emptying (Jardiance) PMFSH Active Problems Active Problems: All Active Problems (Updated 04/15/23 @ 10:56 by Domingo Starkey MD) Cervical intraepithelial neoplasia grade III with severe dysplasia (Acute) HPV in female (Acute) Cervical cancer screening (Acute) Women's annual routine gynecological examination (Acute) Type 2 diabetes mellitus with hyperglycemia, without long-term current use of insulin (Acute) Upper respiratory tract infection (Acute) Mild intermittent asthma (Acute) Dyslipidemia (Acute) Type 2 diabetes mellitus without complication, without long-term current use of insulin (Acute) Elevated ferritin (Acute) Possible alcohol use disorder on screening for alcoholism (Acute) Major depression, recurrent (Acute) Morbid obesity due to excess calories (Acute) Past Medical History Medical History Type 2 diabetes mellitus with hyperglycemia, without long-term current use of insulin Mild intermittent asthma Dyslipidemia Type 2 diabetes mellitus without complication, without long-term current use of insulin Family History Family History Mother Fibromyalgia Father Diabetes Hypertension High cholesterol Surgical History Surgical History Hx of section Social History Social History Household Members: Family Housing: Apartment Do you presently have visiting nurse or other home services: No Patient Tobacco Use Status: Former Tobacco user Tobacco use type: Cigarette e-Cigarette/Vaping Use: Never Used Second Hand Smoke Exposure: No Advance Directives: No Advance Directives Information Provided: Yes service: No Current occupational status: disabled Current occupational exposures/hazards: No Cognitive needs: No Hearing needs: No Vision needs: Yes Meds Allergies Allergy/AdvReac Type Severity Reaction Status Date / Time No Known Allergies Allergy Verified 04/15/23 10:56 [No Known Allergies*] Home Medications Medication Instructions Recorded Confirmed Last Taken Type alcohol swabs (Alcohol Prep Pads) pad topical 11/15/20 02/19/23 Unknown History Exam Pertinent Lab Results Pertinent Lab Results: Laboratory Tests 10/01/22 01/21/23 11:24 08:27 WBC 9.3 Hgb 15.2 Hct 47.4 H Plt Count 310 Sodium 139 Potassium 3.9 Chloride 102 Carbon Dioxide 25 BUN 11 Creatinine 0.64 Assessment and Plan Assessment Anesthesia Assessment: Chart Reviewed Documented by User: Vanessa Salomon MD 04/23/23 13:51 HPI - Anesthesia Eval Consult details Narrative: 37yo super morbidly obese F for Loop Electric Excision Procedure, Possible Loop Electrical Excision Procedure, Cone and Post Cone Endocervical Curettage Anesthesia Pre-Procedure Meds If Yes to any meds - educate patient: Pt education - increased risk of aspiration and Pt education - possibility of cancelled proc at provider's discretion PMFSH Past Medical History Medical History Type 2 diabetes mellitus with hyperglycemia, without long-term current use of insulin Mild intermittent asthma Dyslipidemia Type 2 diabetes mellitus without complication, without long-term current use of insulin Family History Family History Mother Fibromyalgia Father Diabetes Hypertension High cholesterol Family history of problems with anesthesia: No Surgical History Surgical History Hx of section History of Problems with Anesthesia: No Social History Social History Household Members: Family Housing: Apartment Do you presently have visiting nurse or other home services: No Patient Tobacco Use Status: Former Tobacco user Tobacco use type: Cigarette e-Cigarette/Vaping Use: Never Used Second Hand Smoke Exposure: No Advance Directives: No Advance Directives Information Provided: Yes service: No Current occupational status: disabled Current occupational exposures/hazards: No Cognitive needs: No Hearing needs: No Vision needs: Yes Meds Allergies Allergy/AdvReac Type Severity Reaction Status Date / Time No Known Allergies Allergy Verified 04/15/23 10:56 [No Known Allergies*] Home Medications Medication Instructions Recorded Confirmed Last Taken Type alcohol swabs (Alcohol Prep Pads) pad topical 11/15/20 02/19/23 Unknown History Exam Airway Mallampati Class: III (small mouth) Neck ROM: Limited (lot of redundant tissue at neck) Heart: rrr Lungs: cta Assessment and Plan Assessment Anesthesia Assessment: Anesthesia Plan Discussed Final Anesthetic Review Family History of Problems with Anesthesia: No History of Problems with Anesthesia: No NPO: Yes ASA Class: III Final Preanesthetic Review: No Changes in Pt Med Stat, Meds/Allgs Chart Reviewed, Consent Obtained/Reviewed and Anes Risks/Benef Reviewed Patient Risk: Intermediate Procedure Risk: Low Anesthetic Plan Anesthetic Plan: GA Disposition: Standard PACU
[2023-04-23] VITALS (9 sets, daily range): BP systolic 125–180; BP diastolic 79–112; PULSE 91–100; RESP 18; TEMP 36.6–36.9; O2SAT 94–98; BMI 58.9
[2023-04-23 13:41] LABS: UPreg QC Valid YES; Urine Pregnancy NEGATIVE (NEGATIVE)
--- NOTE | 2023-04-23 13:58 | MHC.SHP ---
Pre-Procedural Eval Section A - 24 Hr Update-Section A only Date of Service: 04/23/23 The patient is an INPATIENT: No Changes since office visit: No Cold of Flu in the past 2 weeks, No New Medical Problems, No Changes in Medication and No Patient answered all questions The patient has been examined within 24 hours of the surgical procedure. The History & Physical has been completed within 30 days and I have reviewed it.: Yes Section B - Complete if H&P > 30 days Chief Complaint: Carcinoma in situ of cervix, unspecified Allergies: Allergies Allergy/AdvReac Type Severity Reaction Status Date / Time No Known Allergies Allergy Verified 04/15/23 10:56 [No Known Allergies*] Plan Diagnosis/Plan: Unchanged I have reviewed the history and physical and performed a pertinent physical examination on my patient. No changes have occurred unless specified. Time Spent With Patient Time: Total time managing care of this patient today ____ minutes.
--- NOTE | 2023-04-23 14:10 | PC.NURSE ---
Dr. Salomon aware of patient bp results. Given versed [address] salomon due to patient stating she felt it was her anxiety. will re-assess.
[2023-04-23] MEDS: Lactated Ringers 1,000 ML 100 ML IVCONT (14:14)
[2023-04-23 14:15] LABS: Glucose, Whole Blood 169 mg/dL (60-115)
--- NOTE | 2023-04-23 15:02 | P.BOP_ITS ---
Brief Operative Note Date of Service: 04/23/23 Pre-op diagnosis: Possible NICOLE 3 Post-op diagnosis: same Procedure: LEEP CONE with post CONE ECC Surgeon: Domingo Starkey MD Anesthesia: GLMA and other (Paracervical block) Was an Kitchen Utility Associate used for this Procedure?: No Estimated blood loss (mL): 0 Pathology: other (Cervical cone, Post cone ECC) Condition: stable Disposition: other (Home)
--- NOTE | 2023-04-23 15:03 | P.OP_ITS ---
Operative Note Operative Note Date of Service: 04/23/23 Narrative: Pre op diagnosis: Possible NICOLE 3 Operation: Colposcopy, Loop electrical excision procedure cone, post cone ECC Postop diagnosis: the same Quantitative blood loss: 50 cc Surgeon: Domingo Starkey MD, FACOG Director Of Estate: None Pathology: Cervical cone, post cone endo cervical curettage Complications: none Anesthesia: GLMA and Para cervical block Procedure: The patient was put in a dorsal lithotomy position, scrubbed and draped in the usual sterile fashion. A speculum was inserted inside the patient's vagina. The cervix is assessed using the colposcope with acetic acid , the lesions were seen, and at least 1 cm of the squamocolumnar junction was observed. 20 x 5 mm size loop was selected based upon the diameter of the lesion. Lugol solution was used to outline the lesions and area of the transformation zone order to be removed 10 cc of xylocaine with epinephrine were injected submucosally into the surface of the cervix (ectocervix) at the 3, 6, 9, and 12 o'clock positions. The electrosurgical generator is set at 40 johnson on blend 1. The loop is carefully passed simultaneously around and under the transformation zone, in order to ensure excising it making sure the lesion is at least 5 mm far from the s pecimen margins . The loop was allowed to glide through the cervix from one side to the other, allowing the cutting current to divide the tissue. An endo cervical curettage is performed following completion of excision, and hemostasis is obtained with a Ball electrode or regular tip cautery. At the end, Monsel's solution was applied to the cone bed. The patient tolerated the procedure well and, all instruments were taken out of the patient vaginal cavity, and the patient was transferred to the PACU in stable condition.
== END 2023-04-23 16:15 | disposition home or self-care (01) ==
PROVIDERS: PCP Internal Medicine; Visit Provider Obstetrics & Gynecology
PROC: 0UBC7ZZ Excision of Cervix, Via Natural or Artificial Opening (ICD-10-PCS; CPT 57522; principal; 2023-04-23 14:00)
DX: D06.9 Carcinoma in situ of cervix, unspecified (principal); E78.5 Hyperlipidemia, unspecified; J45.20 Mild intermittent asthma, uncomplicated; E11.65 Type 2 diabetes mellitus with hyperglycemia; Z79.84 Long term (current) use of oral hypoglycemic drugs; Z87.891 Personal history of nicotine dependence
CPT/HCPCS: 57461; 81025; 82947; 88305; 88307; 88342; 88360; J0131; J0330; J1100; J2250; J2371; J2405; J2704; J3010

== ENCOUNTER → 2023-04-23 12:19 | Outpatient (BNV) | payer OTHER, SELFPAY | PROVIDERS: PCP Internal Medicine; Visit Provider Obstetrics & Gynecology | DX: D06.9 Carcinoma in situ of cervix, unspecified (principal) | CPT/HCPCS: 57461 ==

== ENCOUNTER 2023-05-02 12:00 | Outpatient (AMB) | payer OTHER, SELFPAY ==
--- NOTE | 2023-05-02 12:05 | MHC.OFFWIV ---
Intake Vital Signs 05/02/23 12:08 Height 5 ft 5 in BP 122/74 Blood Pressure Location Lt brachial Position Sitting Pulse 93 Pulse Source Pulse Oximeter Temp 97.9 F Temp Source Oral Pulse Oximetry (%) 97 Oxygen Delivery Method Room Air Intake Visit Reasons: EP Diff breathing,cough, fever- Leep procedure Intake Note: pt is here for diffculty breathing, patient had a Leep procedure done and feels like her lungs are burning Patient Tobacco Use Status: Former Tobacco user Allergies No Known Allergies [No Known Allergies*] Allergy (Verified 05/02/23 12:11) Do you need a note to return to daycare/school/sports/work: No HPI HPI Comments History of Present Illness Details 37-year-old female presents for shortness of breath patient recently underwent LEEP procedure for which she went under anesthesia with LMA device since then she has had breath and productive cough she endorses a fever today. [facility] Medical History Type 2 diabetes mellitus with hyperglycemia, without long-term current use of insulin Mild intermittent asthma Dyslipidemia Type 2 diabetes mellitus without complication, without long-term current use of insulin Surgical History Hx of section Family History Mother Fibromyalgia Father Diabetes Hypertension High cholesterol Social History Household Members: Family Housing: Apartment Do you presently have visiting nurse or other home services: No Patient Tobacco Use Status: Former Tobacco user Tobacco use type: Cigarette e-Cigarette/Vaping Use: Never Used Second Hand Smoke Exposure: No service: No Current occupational status: disabled Current occupational exposures/hazards: No Cognitive needs: No Hearing needs: No Vision needs: Yes Female Reproductive History Menstrual Age of Menarche: 12 Physical Exam Vital Signs: Last Vital Signs Temp 97.9 F 05/02/23 12:08 Pulse 93 05/02/23 12:08 BP 122/74 05/02/23 12:08 Pulse Ox 97 05/02/23 12:08 Oxygen Delivery Method Room Air 05/02/23 12:08 Const General: cooperative, no acute distress and alert Orientation/consciousness: patient oriented x3 Limitations: no limitations HEENT Head: Yes normal to inspection Ears: hearing grossly normal bilaterally and external ears normal General nose exam: Normal external nose present Eyes General: appearance normal, both eyes and all related structures Neck Neck: Yes normal visual inspection Chest Chest palpation & inspection: normal inspection of the chest Resp Effort & Inspection: normal respiratory effort, able to speak in complete sentences and no audible wheezes Auscultation: clear to auscultation bilaterally Cardio Rate: regular rate Rhythm: regular rhythm Skin General skin exam: no rashes or lesions noted Neuro General: patient oriented x3 Psych Appearance: grossly normal Mental Status: mental status grossly normal Speech and movement: Normal speech and movement present Affect: normal affect Attitude: cooperative Thought process: Normal thought process present Thought content: Normal thought content present Assessment & Plan Assessment & Plan (1) Cough: Code(s): R05.9 - Cough, unspecified Qualifiers: Cough type: acute Qualified Code(s): R05.1 - Acute cough Plan: Suspect viral cough versus post procedural atelectasis versus asthma flare low suspicion for pneumonia will shoot chest x-ray. Checks x-ray was reviewed by myself and when compared to x-ray from 2020 for which patient was diagnosed with bilateral pneumonia shows similarities. Suspect right middle and left lower lobe infiltrates that in conjunction with fever and symptoms will empirically treat for pneumonia with amoxicillin 1 g t.i.d. Orders: Orders XR chest 2V Today R06.02 - Shortness of breath Medications: New amoxicillin 1,000 mg (2 x 500 mg) PO TID 7 days 42 caps 0RF Coding Level of Care Code Est Pt Level 3 (39348) Diagnoses Acute cough R05.1 Cough type: acute
[2023-05-02 12:08] VITALS: BP 122/74; PULSE 93; TEMP 36.6; O2SAT 97
== END 2023-05-02 12:57 | disposition home or self-care (01) ==
PROVIDERS: PCP Internal Medicine; Visit Provider Physician Assistant
DX: R05.1 Acute cough (principal)
CPT/HCPCS: 99213

== ENCOUNTER 2023-05-02 12:22 | Outpatient (REF) | payer OTHER, SELFPAY ==
--- NOTE | ~2023-05-02 | XR_ITS ---
EXAMINATION: XR CHEST CLINICAL INFORMATION: Reason for Exam R06.02 - Shortness of breath COMPARISON: Chest radiograph 11/07/2020 TECHNIQUE: 2 views of the chest FINDINGS: Lines and tubes: None. Clear lungs. No pleural effusion. No pneumothorax. Normal cardiomediastinal silhouette. XR/XR chest 2V IMPRESSION: * Clear lungs.
== END 2023-05-02 12:23 | disposition home or self-care (01) ==
LOC: HO.HMGCX 12:22
PROVIDERS: PCP Internal Medicine; Visit Provider Physician Assistant
DX: R06.02 Shortness of breath (principal)
CPT/HCPCS: 71046

== ENCOUNTER 2023-05-06 09:57 | Outpatient (AMB) | payer OTHER, SELFPAY ==
[2023-05-06 10:00] VITALS: BP 118/76; BMI 58.2
--- NOTE | 2023-05-06 10:00 | A.OFFVIS_ITS ---
Intake Vital Signs 05/06/23 10:00 Height 5 ft 5 in Weight 350 lb BMI 58.2 BP 118/76 Intake Visit Reasons: post op Allergies No Known Allergies [No Known Allergies*] Allergy (Verified 05/02/23 12:11) HPI HPI Comments History of Present Illness Details Presenting post cone doing well with no complaints. The pathology showed the following: A. Cervix, conization: Partially denuded squamous and endocervical glandular mucosa with thermal artifact and inflammation; negative for dysplasia. B. Endocervix, post cone curettage: Endocervical glandular and squamous mucosa; negative for dysplasia. [facility] Medical History Type 2 diabetes mellitus with hyperglycemia, without long-term current use of insulin Mild intermittent asthma Dyslipidemia Type 2 diabetes mellitus without complication, without long-term current use of insulin Surgical History Hx of section Family History Mother Fibromyalgia Father Diabetes Hypertension High cholesterol Social History Household Members: Family Housing: Apartment Do you presently have visiting nurse or other home services: No Patient Tobacco Use Status: Former Tobacco user Tobacco use type: Cigarette e-Cigarette/Vaping Use: Never Used Second Hand Smoke Exposure: No service: No Current occupational status: disabled Current occupational exposures/hazards: No Cognitive needs: No Hearing needs: No Vision needs: Yes Female Reproductive History Menstrual Age of Menarche: 12 Date of last menstrual period: 04/30/23 Review of Systems Const All systems reviewed & are unremarkable except as noted in HPI and below Reports as per HPI and Reports no additional complaints GI Reports no additional complaints Reports no additional complaints Physical Exam Vital Signs: Last Vital Signs BP 118/76 05/06/23 10:00 BMI result Body Mass Index 58.2 Assessment & Plan Assessment & Plan (1) Cervical intraepithelial neoplasia grade III with severe dysplasia: Comment: Status post cone with post cone ECC, negative pathology Code(s): D06.9 - Carcinoma in situ of cervix, unspecified Plan: Discussed with the patient the results the pathology showing no evidence of residual disease, high-grade lesion, NICOLE 2+, as seen on colposcopic biopsy/ECC pathology. Explained to the patient the following data: -A negative LEEP following a biopsy diagnosis of NICOLE 2+ occurs 14-17% of the time. -Possible reasons include but not limited to: Complete removal of the lesion from the colposcopic biopsy, destruction or regression of the dysplasia by post biopsy inflammation, over reading of the colposcopic biopsy, failure to capture a dysplastic lesion by the LEEP -The risk of recurrence of NICOLE 2+ after LEEP is similar whether residual disease were present or not in the LEEP. It occurs in 13% of patients with residual disease in the LEEP versus 10% of patients with a negative LEEP. -Patients with and without residual disease in the LEEP pathology should be followed up within 6 months of Co testing. Instructions given the patient to schedule 6 months co testing appointment. All questions answered, the patient verbalized understanding, Coding Level of Care Code Est Pt Level 3 (69605) Diagnoses Cervical intraepithelial neoplasia grade III with severe dysplasia D06.9
== END 2023-05-06 11:56 | disposition home or self-care (01) ==
PROVIDERS: PCP Internal Medicine; Visit Provider Obstetrics & Gynecology
DX: D06.9 Carcinoma in situ of cervix, unspecified (principal)
CPT/HCPCS: 99213

== ENCOUNTER → 2023-05-06 09:57 | Outpatient (BNVA) | payer OTHER, SELFPAY | PROVIDERS: PCP Internal Medicine; Visit Provider Obstetrics & Gynecology | DX: D06.9 Carcinoma in situ of cervix, unspecified (principal); Z98.890 Other specified postprocedural states | CPT/HCPCS: 99212 ==

== ENCOUNTER 2023-08-17 13:36 | Outpatient (AMB) | payer OTHER, SELFPAY ==
--- NOTE | 2023-08-17 13:44 | AM.OFFWIN_ITS ---
Intake Vital Signs 08/17/23 13:46 Height 5 ft 5 in Weight 320 lb BMI 53.2 BP 126/76 Blood Pressure Location Lt brachial Position Sitting Pulse 80 Pulse Source Pulse Oximeter Temp 98.2 F Temp Source Temporal Artery Scan Pulse Oximetry (%) 96 Oxygen Delivery Method Room Air Intake Visit Reasons: EP ?UTI Intake Note: pt is here for possible uti Patient Tobacco Use Status: Former Tobacco user Allergies No Known Allergies [No Known Allergies*] Allergy (Verified 08/17/23 13:46) Medication List - Last Reconciled 08/17/23 by Irene Duncan NP albuterol sulfate 2.5 mg (3 mL) inhalation QID PRN albuterol sulfate 90 mcg/actuation 2 puffs inhalation Q6H PRN alcohol swabs (Alcohol Prep Pads) Patient to check blood sugar once daily blood sugar diagnostic (FreeStyle Lite Strips) patient to check blood sugar once daily blood-glucose meter (FreeStyle Lite Meter kit) patient to check blood sugar once daily empagliflozin (Jardiance) 10 mg PO QAM lancets (FreeStyle Lancets) Patient to check blood sugar once daily metformin 500 mg PO BIDWMEAL 3 months Do you need a note to return to daycare/school/sports/work: No HPI EP ?UTI HPI Details 38-year-old female presents signs for UT I. She reports that she has a 1 day history of dysuria, including ability to see blood in the urine, frequency, urgency, burning. She is sexually active with the same partner for the past 10 years, has no concerns for STI. She has not currently due for her menses. She has no vaginal discharge, lesions. She has mild pressure in the lower abdomen, no pain. She also reports mild low back pain. No fever, chills. [facility] Medical History Type 2 diabetes mellitus with hyperglycemia, without long-term current use of insulin Mild intermittent asthma Dyslipidemia Type 2 diabetes mellitus without complication, without long-term current use of insulin Surgical History Hx of section Family History Mother Fibromyalgia Father Diabetes Hypertension High cholesterol Social History Household Members: Family Housing: Apartment Do you presently have visiting nurse or other home services: No Patient Tobacco Use Status: Former Tobacco user Tobacco use type: Cigarette e-Cigarette/Vaping Use: Never Used Second Hand Smoke Exposure: No service: No Current occupational status: disabled Current occupational exposures/hazards: No Cognitive needs: No Hearing needs: No Vision needs: Yes Female Reproductive History Menstrual Age of Menarche: 12 Review of Systems Const All systems reviewed & are unremarkable except as noted in HPI and below Reports as per HPI and Reports no additional complaints Physical Exam Vital Signs: Last Vital Signs Temp 98.2 F 08/17/23 13:46 Pulse 80 08/17/23 13:46 BP 126/76 08/17/23 13:46 Pulse Ox 96 08/17/23 13:46 Oxygen Delivery Method Room Air 08/17/23 13:46 BMI result Body Mass Index 53.2 Const General: cooperative, healthy appearing, comfortable, no acute distress and alert Nutritional Appearance: obese Orientation/consciousness: patient oriented x3 Limitations: no limitations GI Inspection: Yes normal to inspection and Yes Abdominal panniculus present Palpation (GI): Soft to palpation, nontender, hepatosplenomegaly present, no masses and No Rebound tenderness present Auscultation: normal bowel sounds General: Yes bladder normal to palpation and Yes no CVA tenderness Bimanual exam- vagina & uterus: bladder normal to palpation Back/Spine/Pelvis Back: no CVA tenderness Skin General skin exam: no rashes or lesions noted Neuro General: patient oriented x3 Results AMB Urinalysis, Automated UA Leukoctes 500 Bob/uL Last Edit by Aris Mckeon CMA on 08/17/23 14:1 7 UA Nitrite Negative Last Edit by Aris Mckeon CMA on 08/17/23 14:17 UA Urobilinogen 0.2 mg/dL Last Edit by Aris Mckoen CMA on 08/17/23 14 :17 UA Protein 30 mg/dL Last Edit by Aris Mckeon CMA on 08/17/23 14:17 UA pH 6.0 Last Edit by Aris Mckeon CMA on 08/17/23 14:17 UA Blood 200 Brett/uL Last Edit by Aris Mckeon CMA on 08/17/23 14:17 UA Specific [place] 1.010 Last Edit by Aris Mckeon, LAYNE on 08/17/23 14:17 UA Ketone Negative Last Edit by Aris Mckeon CMA on 08/17/23 14:17 UA Bilirubin 0 mg/dL Last Edit by Aris Mckeon, LAYNE on 08/17/23 14:17 UA Glucose 0 mg/dL Last Edit by Aris Mckeon CMA on 08/17/23 14:17 Assessment & Plan Assessment & Plan (1) Acute bacterial simple cystitis: Code(s): N30.80 - Other cystitis without hematuria; B96.89 - Other specified bacterial agents as the cause of diseases classified elsewhere Plan: In office urinalysis dip consistent with likely UTI. Antimicrobial sent to requested pharmacy. Advised to take antibiotics until completed. Advised to follow up with PCP for consideration of repeat urinalysis should any symptoms remain, or consideration of follow-up with blood in urine. Advised patient that this blood may also resolve with treatment of urinary tract infection, and may not require additional workup. Plan See Above. Orders: Orders AMB Urinalysis Automated Today Z13.9 - Encounter for screening, unspecified Medications: New nitrofurantoin monohyd/m-cryst 100 mg (Macrobid) must administer with a meal/food 100 mg PO Q12H 5 days 10 caps 0RF Coding Level of Care Code Est Pt Level 3 (99114) Diagnoses Acute bacterial simple cystitis N30.80; B96.89
[2023-08-17 13:46] VITALS: BP 126/76; PULSE 80; TEMP 36.8; O2SAT 96; BMI 53.2
== END 2023-08-17 14:28 | disposition home or self-care (01) ==
PROVIDERS: PCP Internal Medicine; Visit Provider Registered Nurse
DX: N30.80 Other cystitis without hematuria (principal); B96.89 Other specified bacterial agents as the cause of diseases classified elsewhere
CPT/HCPCS: 81003; 99213

== ENCOUNTER 2023-11-03 10:00 | Outpatient (AMB) | payer OTHER, SELFPAY ==
--- NOTE | 2023-11-03 10:01 | A.OFFVIS_ITS ---
Vital Signs 11/03/23 10:14 Height 5 ft 5 in Weight 319 lb 10.724 oz BMI 53.2 BP 124/76 Intake Visit Reasons: co-test Deputy Court Required: No Information Interpreted: non-clinical & clinical Gas Line Installer: Gas Line Installer Present (Chantel Pineda DAVID) Accompanied by: Self / Same As Patient Allergies No Known Allergies [No Known Allergies*] Allergy (Verified 11/03/23 10:15) Is last menstrual period known: Yes Last menstrual period: 10/08/23 HPI Comments Details: Presenting for six-month co testing post LEEP cone with post cone ECC for? NICOLE 3 on cervical biopsy. 02/20/2023 Co testing was negative HPV E6 E7 positive HPV 16 positive HPV 18/45 negative, this was followed by colposcopy biopsy ECC biopsy a showed atypical squamous epithelium; suspicious for high grade squamous intraepithelial lesion/severe dysplasia, this was followed by LEEP cone with post cone ECC pathology was negative with no evidence of dysplasia [facility] Medical History Type 2 diabetes mellitus with hyperglycemia, without long-term current use of insulin Mild intermittent asthma Dyslipidemia Type 2 diabetes mellitus without complication, without long-term current use of insulin Surgical History Hx of section Family History Mother Fibromyalgia Father Diabetes Hypertension High cholesterol Social History Household Members: Family Housing: Apartment Do you presently have visiting nurse or other home services: No Patient Tobacco Use Status: Former Tobacco user Tobacco use type: Cigarette e-Cigarette/Vaping Use: Never Used Second Hand Smoke Exposure: No service: No Current occupational status: disabled Current occupational exposures/hazards: No Cognitive needs: No Hearing needs: No Vision needs: Yes Female Reproductive History Menstrual Age of Menarche: 12 Date of last menstrual period: 10/08/23 Review of Systems Const All systems reviewed & are unremarkable except as noted in HPI and below Physical Exam General: Yes no CVA tenderness External Female Exam: normal external appearance and normal appearance of the urethra Speculum Exam - Vagina: normal appearance of the vagina, normal palpation, no lesions and no masses Speculum Exam - Cervix: normal appearance of the cervix, normal palpation, no lesions, no masses and nontender Bimanual exam- vagina & uterus: normal bimanual exam, normal palpation, uterine size normal, normal palpation, uterine shape normal, No Cervical tenderness present and non-tender Bimanual Exam- Adnexa, other: normal adnexae Back/Spine/Pelvis Back: no CVA tenderness Assessment & Plan Assessment & Plan (1) Cervical intraepithelial neoplasia grade III with severe dysplasia: Comment: Status post cone with post cone ECC, negative pathology Code(s): D06.9 - Carcinoma in situ of cervix, unspecified Category: Medical Plan: Co testing done. If abnormal proceed with colposcopy if normal repeat co testing in 1 year. Instructions given the patient to schedule a co testing appointment in 1 year. All questions answered, the patient verbalized understanding Coding Level of Care Code Est Pt Level 3 (79143) Diagnoses Cervical intraepithelial neoplasia grade III with severe dysplasia D06.9
[2023-11-03 10:14] VITALS: BP 124/76; BMI 53.2
== END 2023-11-03 10:25 | disposition home or self-care (01) ==
LOC: HO.HWS 10:00
PROVIDERS: PCP Internal Medicine; Visit Provider Obstetrics & Gynecology
DX: D06.9 Carcinoma in situ of cervix, unspecified (principal)
CPT/HCPCS: 99213

== ENCOUNTER 2023-11-03 10:00 | Outpatient (REF) | payer OTHER, SELFPAY ==
[2023-11-05 17:28] LABS: HPV mRNA E6/E7 Not Detected (Not Detected)
== END 2023-11-03 10:01 | disposition home or self-care (01) ==
LOC: HO.LNP 10:00
PROVIDERS: PCP Internal Medicine; Visit Provider Obstetrics & Gynecology
DX: D06.9 Carcinoma in situ of cervix, unspecified (principal)
CPT/HCPCS: 87624; 88175; 99212

== ENCOUNTER 2023-12-01 09:26 | Outpatient (REF) | payer OTHER, SELFPAY | END 2023-12-01 09:27 | disposition home or self-care (01) | LOC: HO.LAB 09:26 | PROVIDERS: PCP Internal Medicine | DX: J06.9 Acute upper respiratory infection, unspecified (principal) | CPT/HCPCS: 99212 ==

== ENCOUNTER 2023-12-01 09:26 | Outpatient (AMB) | payer OTHER, SELFPAY ==
--- NOTE | 2023-12-01 09:30 | MHC.OFFWIV ---
Intake Vital Signs 12/01/23 09:31 12/01/23 10:11 Height 5 ft 5 in Weight 333 lb BMI 55.4 BP 130/88 Blood Pressure Location Lt brachial Position Sitting Pulse 103 H 95 Pulse Source Pulse Oximeter Pulse Oximeter Temp 98.3 F Temp Source Oral Pulse Oximetry (%) 98 97 Oxygen Delivery Method Room Air Room Air Intake Visit Reasons: EP-cough, headaches, sob, light fever, nose wendy. Intake Note: Patient here for cough, SOB, headache, congestion and chest heaviness which has been present for about 1 week. Patient Tobacco Use Status: Former Tobacco user Allergies No Known Allergies [No Known Allergies*] Allergy (Verified 12/01/23 09:32) Do you need a note to return to daycare/school/sports/work: No HPI HPI Comments History of Present Illness Details Patient is a 38-year-old female with a past medical history of asthma complaining of 7 days of a productive cough with white yellow and green thick sputum, headache, shortness of breath that is worse with exertion, a low-grade fever with a T-max of 99.7 degrees, and some nasal congestion. She states she has been taking Motrin for her headaches and cough medicine for her cough but it is still keeps her up all night. She tells me she has been using her albuterol inhaler every 4 hours with some relief. She also says she has a nebulizer machine but she has no nebulizer solution. She denies any sinus pain, ear pain or sore throat. She tells me her whole house has been sick and everyone's been taking turns being sick over the last 6 weeks and last week her 2 kids both had strep pharyngitis. [facility] Medical History Type 2 diabetes mellitus with hyperglycemia, without long-term current use of insulin Mild intermittent asthma Dyslipidemia Type 2 diabetes mellitus without complication, without long-term current use of insulin Surgical History Hx of section Family History Mother Fibromyalgia Father Diabetes Hypertension High cholesterol Social History Household Members: Family Housing: Apartment Do you presently have visiting nurse or other home services: No Patient Tobacco Use Status: Former Tobacco user Tobacco use type: Cigarette e-Cigarette/Vaping Use: Never Used Second Hand Smoke Exposure: No service: No Current occupational status: disabled Current occupational exposures/hazards: No Cognitive needs: No Hearing needs: No Vision needs: Yes Female Reproductive History Menstrual Age of Menarche: 12 Review of Systems Const All systems reviewed & are unremarkable except as noted in HPI and below Physical Exam Vital Signs: Last Vital Signs Temp 98.3 F 12/01/23 09:31 Pulse 103 H 12/01/23 09:31 BP 130/88 12/01/23 09:31 Pulse Ox 98 12/01/23 09:31 Oxygen Delivery Method Room Air 12/01/23 09:31 BMI result Body Mass Index 55.4 Const General: cooperative, healthy appearing, comfortable and no acute distress Orientation/consciousness: patient oriented x3 Limitations: no limitations HEENT Head: Yes normal to inspection Ears: hearing grossly normal bilaterally, external ears normal and TM's normal bilaterally General nose exam: Normal external nose present, Normal nares present and No nasal discharge present Face and sinus: Yes normal facial exam and Yes sinuses nontender Mouth: Normal oral and palatal mucosa present and moist mucous membranes Throat: Yes tonsils normal, Yes uvula midline and Yes posterior oropharynx abnormal (Erythema; no exudates noted) Eyes General: appearance normal, both eyes and all related structures Neck Neck: Yes normal visual inspection Resp Effort & Inspection: normal respiratory effort, able to speak in complete sentences, Actively coughing, no respiratory distress, not tachypneic, no tripod positioning and no use of accessory muscles Auscultation: clear to auscultation bilaterally and diminished lung sounds diffuse Cardio Rate: regular rate Rhythm: regular rhythm Heart sounds: normal S1 and S2 Skin General skin exam: no rashes or lesions noted Neuro General: patient oriented x3 Extrem General: Yes normal to inspection and Yes no clubbing, cyanosis or edema Assessment & Plan Assessment & Plan (1) Upper respiratory tract infection: Code(s): J06.9 - Acute upper respiratory infection, unspecified Plan: Vital signs are stable and patient is well-appearing, she did have some diminished lung sounds so I will get a chest x-ray. We also sent flu COVID and RSV testing Plan See above Orders: Orders XR chest 2V Today R05.9 - Cough, unspecified SARS-CoV2/FLU/RSV Today J06.9 - Acute upper respiratory infection, unspecified Medications: New ipratropium-albuterol 0.5 mg-3 mg(2.5 mg base)/3 mL 3 mL inhalation Q6-8H PRN 90 mL 0RF wheezing codeine-guaifenesin 10-100 mg/5 mL 10 mL PO Q4-6H PRN 120 mL 0RF cold symptoms Coding Level of Care Code Est Pt Level 4 (17692) Diagnoses Upper respiratory tract infection J06.9
[2023-12-01 09:31] VITALS: BP 130/88; PULSE 103; TEMP 36.8; O2SAT 98; BMI 55.4
[2023-12-01 10:11] VITALS: PULSE 95; O2SAT 97
== END 2023-12-01 10:39 | disposition home or self-care (01) ==
PROVIDERS: PCP Internal Medicine; Visit Provider Physician Assistant
DX: J06.9 Acute upper respiratory infection, unspecified (principal)

== ENCOUNTER 2023-12-01 09:56 | Outpatient (REF) | payer OTHER, SELFPAY ==
--- NOTE | ~2023-12-01 | XR_ITS ---
EXAMINATION: XR CHEST CLINICAL INFORMATION: Cough. COMPARISON: May 02, 2023. TECHNIQUE: PA and lateral views of the chest were obtained. FINDINGS: The study is limited by suboptimal inspiration and patient body habitus. Suspect focal left lower lobe infiltrate raising suspicion for pneumonia, new compared with May 02, 2023. The right lung appears grossly clear. No effusion or pneumothorax is seen. The cardiac silhouette appears upper normal in size. The mediastinum, diaphragm, bones, and soft tissues appear unremarkable. XR/XR chest 2V IMPRESSION: Suspect left lower lobe pneumonia. Recommend follow-up to resolution after an appropriate course of therapy has been completed. Electronically signed by: Erasmo Knowles MD 12/01/2023 11:13 AM EDT
[2023-12-01 14:05] LABS: Influenza A PCR NEGATIVE (Negative); Influenza B PCR NEGATIVE (Negative); Resp Syncy Virus RNA Qual PCR NEGATIVE (Negative); SARS COV2 PCR INHOUSE NEGATIVE (Negative)
== END 2023-12-01 09:57 | disposition home or self-care (01) ==
LOC: HO.HMGCX 09:56
PROVIDERS: PCP Internal Medicine; Visit Provider Physician Assistant
DX: R05.9 Cough, unspecified (principal); J06.9 Acute upper respiratory infection, unspecified
CPT/HCPCS: 0241U; 71046

== ENCOUNTER 2024-02-08 10:58 | Outpatient (AMB) | payer OTHER, SELFPAY ==
[2024-02-08 11:20] VITALS: BP 110/88; PULSE 100; O2SAT 97; BMI 54.2
--- NOTE | 2024-02-08 11:20 | MHC.PC.OV ---
Vital Signs 02/08/24 11:20 Height 5 ft 5 in Weight 326 lb BMI 54.2 BP 110/88 Blood Pressure Location Rt brachial Position Sitting Pulse 100 Pulse Source Pulse Oximeter Pulse Oximetry (%) 97 Oxygen Delivery Method Room Air Intake Visit Reasons: Annual PE Intake Note: Pt is here today for her PE: Allergies No Known Allergies [No Known Allergies*] Allergy (Verified 02/08/24 11:41) Medication List - Last Reconciled 02/08/24 by Bethanie Masters MD albuterol sulfate 2.5 mg (3 mL) inhalation QID PRN albuterol sulfate 90 mcg/actuation 2 puffs inhalation Q6H PRN alcohol swabs (Alcohol Prep Pads) Patient to check blood sugar once daily blood sugar diagnostic (FreeStyle Lite Strips) patient to check blood sugar once daily blood-glucose meter (FreeStyle Lite Meter kit) patient to check blood sugar once daily empagliflozin (Jardiance) 10 mg PO QAM lancets (FreeStyle Lancets) Patient to check blood sugar once daily metformin 500 mg PO BIDWMEAL 3 months Tobacco use date assessed: 02/08/24 Dental Screening Dental Screen Date: 02/08/24 Did you have a dental visit in the last 12 months?: No Did you have a dental problem in the last 6 months where you did not have access to dental care?: No Was dental information given to patient?: No HPI Annual PE HPI Details 38 year old lady with Past medical history of Diabetes mellitus , Dyslipidemia , Mild intermittent Asthma , and depression , here for her physical examination. 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 Starkey. Had a recent mammogram screening done 02/20/2023 She is up-to-date with her Tdap and pneumonia vaccine, flu vaccine to be given today. Does not want to get further COVID booster vaccination. [facility] Medical History (Updated 02/08/24 @ 11:46 by Bethanie Masters MD) Type 2 diabetes mellitus with hyperglycemia, without long-term current use of insulin Mild intermittent asthma Dyslipidemia Surgical History Hx of section Family History (Updated 02/08/24 @ 11:32 by Sofia Edwards CMA) Mother Fibromyalgia Mental health disorder Father Diabetes Hypertension High cholesterol Mental health disorder Sister Mental health disorder Sister Mental health disorder Social History Household Members: Family Housing: Apartment Do you presently have visiting nurse or other home services: No Patient Tobacco Use Status: Former Tobacco user Tobacco use type: Cigarette e-Cigarette/Vaping Use: Never Used Second Hand Smoke Exposure: No service: No Current occupational status: disabled Current occupational exposures/hazards: No Cognitive needs: No Hearing needs: No Vision needs: Yes Female Reproductive History Menstrual Age of Menarche: 12 Other: Followed at [facility] with Dr. Starkey Questionnaire PHQ-9 Over the last 2 weeks, how often have you been bothered by any of the following problems? 1. Little interest or pleasure in doing things: not at all 2. Feeling down, depressed, or hopeless: not at all 3. Trouble falling or staying asleep, or sleeping too much: several days 4. Feeling tired or having little energy: several days 5. Poor appetite or overeating: not at all 6. Feeling bad about yourself - or that you are a failure or have let yourself or your family down: not at all 7. Trouble concentrating on things, such as reading the newspaper or watching television: several days 8. Moving or speaking so slowly that other people could have noticed. Or the opposite - being so fidgety or restless that you have been moving around a lot more than usual: not at all 9. Thoughts that you would be better off or of hurting yourself in some way: not at all Total score: 3 Depression Screening Interpretation: Negative Depression Screening Done: Yes Source: Developed by Drs. Norman Dorantes, Aminah Greer, Sina Jean and colleagues, with an educational kimi from [employer]. Thrive Questionnaire Date Thrive assessed: 02/08/24 I am a: Patient What is your living situation today?: I have a steady place to live Within the past 12 months, did the food you bought not last and you didn't have the money to get more?: Never true Within the past 12 months, did you worry whether your food would run out before you got money to buy more?: Never true Do you have trouble paying for medicines?: No Do you have trouble getting transportation to medical appointments?: No Do you have trouble paying your heating and electricity bill?: No Do you have trouble taking care of your child, family member or friend?: No Do you have trouble with day-to-day activities such as bathing, preparing meals, shopping, managing finances, etc.?: No Are you currently unemployed and looking for a job?: No Are you interested in more education?: No Please select the resources that you would like help with: None Currently or been in a relationship where the following occur: No concerns reported THRIVE Score: 0 AUDIT C Alcohol Use Questionnaire (AUDIT-C) 1. How often do you have a drink containing alcohol?: 2-4 times a month 2. How many drinks containing alcohol do you have on a typical day when you are drinking?: 1 or 2 3. How often do you have six or more drinks on one occasion?: Never Total Score: 2 FIGUEROA-7 AMB Questionnaire FIGUEROA-7 Date FIGUEROA - 7 assessed: 02/08/24 Feeling nervous, anxious, or on edge: 1 = Several days Not being able to stop or control worryin = Not at all Worrying too much about different things: 1 = Several days Trouble relaxin = Not at all Being so restless that it is hard to sit still: 0 = Not at all Becoming easily annoyed or irritable: 1 = Several days Feeling afraid as if something awful might happen: 0 = Not at all Total FIGUEROA-7 score (0-4 normal; 5-9 mild; 10-14 moderate; 15-21 severe): 3 Source: Developed by Drs. Norman Dorantes, Aminah Greer, Sina Jean and colleagues, with an educational kimi from [employer]. FIGUEROA-7 Assessment Billing FIGUEROA-7 Assessment Tool: FIGUEROA-7 Assessment 55409 ACT Questionnaire In the past 4 weeks, how much of the time did your asthma keep you from getting as much done at work, school or at home?: None of the time During the past 4 weeks, how often have you had shortness of breath?: 1-2 times a week During the past 4 weeks, how often did your asthma symptoms wake you up at night or earlier than usual in the morning?: Not at all During the past 4 weeks, how often have you had to use your rescue inhaler or nebulizer medication?: Once a week or less How would you rate your asthma control during the past 4 weeks?: Well controlled ACT Interpretation: Negative Score: 22 Review of Systems Const Denies chills, Denies fever(s), Denies headache(s) and Denies malaise Eyes Denies change in vision ENT Denies headache(s), Denies epistaxis and Denies nasal discharge Card Denies chest pain, Denies irregular heart rhythm and Denies lightheadedness Resp Denies chest congestion, Denies cough and Denies hemoptysis GI Denies change in bowel habits, Denies heartburn and Denies nausea Denies difficulty voiding, Denies dysuria and Denies urinary incontinence Musc Reports no additional complaints Skin/Breast Denies rash Neuro Reports no additional complaints and Denies headache(s) Psych Reports no additional complaints Endo Reports no additional complaints Lowell/Lymph Denies easy bleeding and Denies easy bruising Aller/Immun Reports no additional complaints Physical exam (Primary Care) Vital Signs: Last Vital Signs Pulse 100 02/08/24 11:20 BP 110/88 02/08/24 11:20 Pulse Ox 97 02/08/24 11:20 Oxygen Delivery Method Room Air 02/08/24 11:20 BMI result Body Mass Index 54.2 Tobacco/Smoking Status: Tobacco use Status Tobacco use date assessed 02/08/24 02/08/24 11:34 Patient Tobacco Use Status Former Tobacco user 02/08/24 11:21 Tobacco use type Cigarette 02/08/24 11:21 e-Cigarette/Vaping Use Never Used 02/08/24 11:21 PHQ-9: PHQ-9 Score PHQ-9: Total score 6 02/15/24 01:40 Depression Screening Interpretation: Negative Thrive Assessment: Date of Thrive Assessment Date Thrive assessed 02/08/24 02/08/24 11:34 Currently or been in a relationship where the following occur: No concerns reported Const General: cooperative, comfortable and no acute distress Nutritional Appearance: obese morbidly obese Orientation/consciousness: patient oriented x3 HENMT Head: Yes normocephalic Mouth: Normal oral and palatal mucosa present, oropharynx normal and moist mucous membranes Eyes General: appearance normal, both eyes and all related structures Neck Neck: Yes full ROM, Yes no lymphadenopathy and Yes supple Chest Chest palpation & inspection: normal inspection of the chest Breast/axilla palpation: normal palpation of the breasts Resp Effort & Inspection: normal respiratory effort and no cough Cardio Rhythm: regular rhythm Heart sounds: S1 normal heart sound present and S2 normal heart sound present GI Other: Obese, normal bowel sounds, soft, nontender, no mass palpated General: Yes no CVA tenderness and Yes deferred (Has an upcoming appointment with her OBGYN for her pelvic exam and Pap smea) Back/Spine/Pelvis Back: no CVA tenderness and No back tenderness Skin General skin exam: no rashes or lesions noted and turgor normal Neuro General: patient oriented x3, gait normal, tone normal, moves all extremities, no focal motor deficits and CN's II-XI intact bilaterally Gait exam (Neuro): Normal gait present Extrem General: Yes full ROM, Yes no joint enlargement, Yes no clubbing, cyanosis or edema, Yes no calf tenderness and Yes normal gait Psych Appearance: grossly normal and well kempt Mental Status: mental status grossly normal Speech and movement: Normal speech and movement present Affect: normal affect Attitude: cooperative Thought process: Normal thought process present Thought content: Normal thought content present Office Procedures Flu Questionnaire Does the patient have a severe egg allergy?: No Does the patient have severe life threatening allergies?: No Does the patient have a fever or illness today?: No Has the patient ever had Guillain-Gardner Syndrome?: No Has the patient ever had any past reaction to a flu shot?: No Immunizations Fluarix Triv [id number] (PF) 45 mcg (15 mcg x 3)/0.5 mL IM syringe Performing Provider: Bethanie Masters MD Performing Location: [facility] Administered by: Sofia Edwards CMA on 02/08/24 11:42 Dose Route Admin Location Dispensed Lot Number Expiration Date NDC Tongue Stitcher 0.5 mL IM Right Deltoid 0.5 mL [id number] 08/15/24 07136-754-13 [employer] VIS Given Date VIS Provided VIS Publication Date 02/08/24 Single Vaccine 20 Eligibility Eligibility Date Funding Source Not [facility] Eligible 02/08/24 Private Coding Level of Care Code Est Pt Prev Care 18-39y(50158) Diagnoses Annual visit for general adult medical examination with abnormal findings Z00.01 Type 2 diabetes mellitus with hyperglycemia, without long-term current use of insulin E11.65 Dyslipidemia E78.5 Morbid obesity due to excess calories E66.01 Mild intermittent asthma J45.20 Additional Codes FGIUEROA-7 Assessment Billing - FIGUEROA-7 Assessment Tool: FIGUEROA-7 Assessment 83782 ([id number]) Asthma Control Questionnaire - ACT Interpretation: Negative ([id number]) Assessment & Plan Assessment & Plan (1) Annual visit for general adult medical examination with abnormal findings: Code(s): Z00.01 - Encounter for general adult medical examination with abnormal findings Plan: Will check appropriate labs. Recommended dental visit every 6 months and regular diabetes eye screening every year Take adequate calcium in diet and vitamin-D 3 at 2000 IU per cap once a day, in addition to weight-bearing exercises to help maintain good muscle tone and weight control. Instructed to do self-breast exam, and recommended to get yearly mammogram, starting at age 40. Currently being followed by [facility] for her routine Pap and pelvic exam, diagnosed with carcinoma in-situ status post colposcopy done by Dr. Starkey. Declines COVID booster but up-to-date with her Tdap and pneumonia vaccine, flu vaccine given today. (2) Type 2 diabetes mellitus with hyperglycemia, without long-term current use of insulin: Code(s): E11.65 - Type 2 diabetes mellitus with hyperglycemia Category: Medical Plan: Fasting labs ordered today to check hemoglobin A1c and fasting glucose as well as electrolytes and renal function. Continue with current dose of metformin, empagliflozin. continue to check fasting blood sugar at home, maintain log and bring to next appointment for review. Reinforced diabetic diet and regular exercise with patient. Counseled regarding importance of yearly diabetes retinopathy screening. Patient advised to inspect feet daily, for any signs of injury, callus or infection. Compliance with diet and regular exercise again stressed. Blood pressure goal is less than 130/80, goal LDL is less than 100 and goal hemoglobin A1c is less than 7% follow-up appointment made in--3-months (3) Dyslipidemia: Code(s): E78.5 - Hyperlipidemia, unspecified Category: Medical Plan: Fasting lipid panel and liver enzymes ordered today. (4) Morbid obesity due to excess calories: Code(s): E66.01 - Morbid (severe) obesity due to excess calories Category: Medical Plan: Reinforced importance of following healthy diet, and getting regular exercise. (5) Mild intermittent asthma: Code(s): J45.20 - Mild intermittent asthma, uncomplicated Category: Medical Plan: Up-to-date with her pneumonia vaccine, flu vaccine given today. Only using albuterol inhaler as needed for episodes of bronchospasm and wheezing Orders: Orders Lipid Panel 02/08/24 E11.65 - Type 2 diabetes mellitus with hyperglycemia, E66.01 - Morbid (severe) obesity due to excess calories, E78.5 - Hyperlipidemia, unspecified, F33.9 - Major depressive disorder, recurrent, unspecified, J45.20 - Mild intermittent asthma, uncomplicated, Z00.01 - Encounter for general adult medical examination with abnormal findings Alanine Aminotransferase 02/08/24 E11.65 - Type 2 diabetes mellitus with hyperglycemia, E66.01 - Morbid (severe) obesity due to excess calories, E78.5 - Hyperlipidemia, unspecified, F33.9 - Major depressive disorder, recurrent, unspecified, J45.20 - Mild intermittent asthma, uncomplicated, Z00.01 - Encounter for general adult medical examination with abnormal findings Vitamin D 25-OH Total 02/08/24 E11.65 - Type 2 diabetes mellitus with hyperglycemia, E66.01 - Morbid (severe) obesity due to excess calories, E78.5 - Hyperlipidemia, unspecified, F33.9 - Major depressive disorder, recurrent, unspecified, J45.20 - Mild intermittent asthma, uncomplicated, Z00.01 - Encounter for general adult medical examination with abnormal findings Influenza [id number] Immunization 02/08/24 Z23 - Encounter for immunization Hemoglobin A1c 02/08/24 E11.65 - Type 2 diabetes mellitus with hyperglycemia, E66.01 - Morbid (severe) obesity due to excess calories, E78.5 - Hyperlipidemia, unspecified, F33.9 - Major depressive disorder, recurrent, unspecified, J45.20 - Mild intermittent asthma, uncomplicated, Z00.01 - Encounter for general adult medical examination with abnormal findings Aspartate Amino Transferase 02/08/24 E11.65 - Type 2 diabetes mellitus with hyperglycemia, E66.01 - Morbid (severe) obesity due to excess calories, E78.5 - Hyperlipidemia, unspecified, F33.9 - Major depressive disorder, recurrent, unspecified, J45.20 - Mild intermittent asthma, uncomplicated, Z00.01 - Encounter for general adult medical examination with abnormal findings Basic Metabolic Panel Fasting 02/08/24 E11.65 - Type 2 diabetes mellitus with hyperglycemia, E66.01 - Morbid (severe) obesity due to excess calories, E78.5 - Hyperlipidemia, unspecified, F33.9 - Major depressive disorder, recurrent, unspecified, J45.20 - Mild intermittent asthma, uncomplicated, Z00.01 - Encounter for general adult medical examination with abnormal findings Microalbumin, Random (w Creat) 02/08/24 E11.65 - Type 2 diabetes mellitus with hyperglycemia, E66.01 - Morbid (severe) obesity due to excess calories, E78.5 - Hyperlipidemia, unspecified, F33.9 - Major depressive disorder, recurrent, unspecified, J45.20 - Mild intermittent asthma, uncomplicated, Z00.01 - Encounter for general adult medical examination with abnormal findings
== END 2024-02-08 12:05 | disposition home or self-care (01) ==
PROVIDERS: PCP Internal Medicine; Visit Provider Internal Medicine
DX: Z23 Encounter for immunization (principal)

== ENCOUNTER → 2024-02-08 10:58 | Outpatient (BNVA) | payer OTHER, SELFPAY | PROVIDERS: PCP Internal Medicine; Visit Provider Internal Medicine | DX: Z00.01 Encounter for general adult medical examination with abnormal findings (principal); Z23 Encounter for immunization; E11.65 Type 2 diabetes mellitus with hyperglycemia; E78.5 Hyperlipidemia, unspecified; E66.01 Morbid (severe) obesity due to excess calories; J45.20 Mild intermittent asthma, uncomplicated | CPT/HCPCS: 90471; 90656; 96127; 96160 ==

== ENCOUNTER 2024-05-06 13:35 | Outpatient (REF) | payer OTHER, SELFPAY ==
[2024-05-08 12:20] LABS: Bacterial Vaginosis PCR NEGATIVE (Negative); Candida Group PCR DETECTED (Not Detect); Candida glab krusei PCR NOT DETECTED (Not Detect); Trichomonas vaginalis PCR NOT DETECTED (Not Detect)
[2024-05-08 12:52] LABS: CT PCR NOT DETECTED (Not Detect.); NG PCR NOT DETECTED (Not Detect.)
== END 2024-05-06 13:36 | disposition home or self-care (01) ==
LOC: HO.LNP 13:35
PROVIDERS: PCP Internal Medicine; Visit Provider Obstetrics & Gynecology
DX: N76.0 Acute vaginitis (principal)
CPT/HCPCS: 81515; 87491; 87591; 99212

== ENCOUNTER 2024-05-06 13:35 | Outpatient (AMB) | payer OTHER, SELFPAY ==
--- NOTE | 2024-05-06 13:38 | A.OFFVIS_ITS ---
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 Present (Alisha) Accompanied by: Self / Same As Patient Allergies No Known Allergies [No Known Allergies*] Allergy (Verified 05/06/24 13:44) HPI Comments Details: Presenting complaining of vulvovaginal itching over the last few days no associated vaginal discharge or other concerns [facility] Medical History Type 2 diabetes mellitus with hyperglycemia, without long-term current use of insulin Mild intermittent asthma Dyslipidemia Surgical History Hx of section Family History Mother Fibromyalgia Mental health disorder Father Diabetes Hypertension High cholesterol Mental health disorder Sister Mental health disorder Sister Mental health disorder Social History Household Members: Family Housing: Apartment Do you presently have visiting nurse or other home services: No Patient Tobacco Use Status: Former Tobacco user Tobacco use type: Cigarette e-Cigarette/Vaping Use: Never Used Second Hand Smoke Exposure: No service: No Current occupational status: disabled Current occupational exposures/hazards: No Cognitive needs: No Hearing needs: No Vision needs: Yes Female Reproductive History Menstrual Age of Menarche: 12 Review of Systems Const All systems reviewed & are unremarkable except as noted in HPI and below Physical Exam General: Yes no CVA tenderness External Female Exam: normal external appearance and normal appearance of the urethra Speculum Exam - Vagina: normal appearance of the vagina, normal palpation, no lesions and no masses Speculum Exam - Cervix: normal appearance of the cervix, normal palpation, no lesions, no masses and nontender Bimanual exam- vagina & uterus: normal bimanual exam, normal palpation, uterine size normal, normal palpation, uterine shape normal, No Cervical tenderness present and non-tender Bimanual Exam- Adnexa, other: normal adnexae Back/Spine/Pelvis Back: no CVA tenderness Assessment & Plan Assessment & Plan (1) Vulvovaginitis: Code(s): N76.0 - Acute vaginitis Category: Medical Plan: GC/CT, Bacterial Vaginosis panel taken, Terazol 0.8% q.h.s. for 3 days was sent to the patient's pharmacy. The patient was instructed to call if symptoms don't improve in 48 hours. Medications: New terconazole 0.8% 1 appful vaginal BEDTIME 3 days 20 grams 0RF Coding Level of Care Code Est Pt Level 3 (40366) Diagnoses Vulvovaginitis N76.0
== END 2024-05-06 14:14 | disposition home or self-care (01) ==
LOC: HO.HWS 13:35
PROVIDERS: PCP Internal Medicine; Visit Provider Obstetrics & Gynecology
DX: N76.0 Acute vaginitis (principal)
CPT/HCPCS: 99213

== ENCOUNTER 2024-05-20 08:42 | Outpatient (REF) | payer OTHER, SELFPAY ==
[2024-05-20 11:02] LABS: Creatinine Urine 128.65 mg/dL; Microalbum/Creatinine Ratio Ur 15.5 ug/mg cr (<30)
[2024-05-20 11:24] LABS: Estimated Average Glucose 146 mg/dL; Hemoglobin A1C 202.3141 umol/L; Hemoglobin A1c % 6.7 % (<6.0); Total Hemoglobin (HGBA1C) 4109.7164 umol/L
[2024-05-20 11:30] LABS: Alanine Aminotransferase 26 U/L (0-31); Anion Gap 10 (12-20); Aspartate Amino Transferase 20 U/L (5-31); Blood Urea Nitrogen 14 mg/dL (9-16); Calcium 9.1 mg/dL (8.4-10.2); Carbon Dioxide 28 mmol/L (22-29); Chloride 107 mmol/L (96-108); Cholesterol 191 mg/dL (<200); Estimated Glomerular Filt Rate > 60; Glucose Fasting 132 mg/dL (60-99); HDL Cholesterol 55 mg/dL (>40); LDL Cholesterol Calculated 113 mg/dL (<100); Potassium 4.3 mmol/L (3.3-5.1); Sodium 141 mmol/L (135-145); Triglycerides 116 mg/dL (<150)
[2024-05-20 11:33] LABS: Vitamin D 25-OH Total 29.9 ng/mL (>30)
== END 2024-05-20 08:43 | disposition home or self-care (01) ==
LOC: HO.LAB 08:42
PROVIDERS: PCP Internal Medicine; Visit Provider Internal Medicine
DX: Z00.01 Encounter for general adult medical examination with abnormal findings (principal); E11.65 Type 2 diabetes mellitus with hyperglycemia; J45.20 Mild intermittent asthma, uncomplicated; E78.5 Hyperlipidemia, unspecified; F33.9 Major depressive disorder, recurrent, unspecified; E66.01 Morbid (severe) obesity due to excess calories
CPT/HCPCS: 36415; 80048; 80061; 82043; 82306; 82570; 83036; 84450; 84460

== ENCOUNTER 2024-06-14 10:40 | Outpatient (AMB) | payer OTHER, SELFPAY ==
[2024-06-14 10:44] VITALS: BP 110/70; PULSE 85; RESP 16; TEMP 36.7; O2SAT 99; BMI 53.4
--- NOTE | 2024-06-14 10:44 | A.OFFPC_ITS ---
Vital Signs 06/14/24 10:44 Height 5 ft 5 in Weight 321 lb BMI 53.4 BP 110/70 Blood Pressure Location Lt brachial Position Sitting Respiration 16 Pulse 85 Pulse Source Pulse Oximeter Temp 98.1 F Temp Source Oral Pulse Oximetry (%) 99 Oxygen Delivery Method Room Air Intake Visit Reasons: 3 months f/up Intake Note: Pt is here today for her 3mo. f/u Allergies No Known Allergies [No Known Allergies*] Allergy (Verified 06/14/24 10:58) Medication List - Last Reconciled 06/14/24 by Bethanie Masters MD albuterol sulfate 2.5 mg (3 mL) inhalation QID PRN albuterol sulfate 90 mcg/actuation 2 puffs inhalation Q6H PRN alcohol swabs (Alcohol Prep Pads) Patient to check blood sugar once daily blood sugar diagnostic (FreeStyle Lite Strips) patient to check blood sugar once daily blood-glucose meter (FreeStyle Lite Meter kit) patient to check blood sugar once daily empagliflozin (Jardiance) 10 mg PO QAM lancets (FreeStyle Lancets) Patient to check blood sugar once daily metformin 500 mg PO BIDWMEAL 3 months Tobacco use date assessed: 06/14/24 Dental Screening Dental Screen Date: 06/14/24 Did you have a dental visit in the last 12 months?: No Did you have a dental problem in the last 6 months where you did not have access to dental care?: No Was dental information given to patient?: No HPI 3 months f/up HPI Details 39-year-old lady with Past medical histo ry of Diabetes mellitus , Dyslipidemia , Mild intermittent Asthma , here for her follow-up visit. She is taking Jardiance 10 mg daily in the morning and metformin 500 mg twice a day, patient is admits to getting on forgetting to take a.m. dose of metformin has been trying to follow recommended diet and has started exercising again latest hemoglobin A1c went down to 6.7%, and LDL cholesterol also when down as compared to last check but still not at goal her blood pressure today is within normal limits. Has lost some weight. Stopped smoking cigarettes 3 years ago. Has been having frequent anxiety attacks lately as mother is currently dealing with esophageal cancer, now in short-term rehab and will be resuming chemotherapy again. Declines referral for counseling and not interested in starting any medication to help with her anxiety attacks at present time. Able to control it through behavioral modifications. She is up-to-date with her diabetes eye exam, sees Dr. Don, last seen 03/04/2024 with no diabetic retinopathy seen in both eyes. [facility] Medical History (Updated 06/14/24 @ 11:22 by Bethanie Masters MD) Depression with anxiety Type 2 diabetes mellitus with hyperglycemia, without long-term current use of insulin Mild intermittent asthma Dyslipidemia Surgical History Hx of section Family History Mother Fibromyalgia Mental health disorder Father Diabetes Hypertension High cholesterol Mental health disorder Sister Mental health disorder Sister Mental health disorder Social History Household Members: Family Housing: Apartment Do you presently have visiting nurse or other home services: No Patient Tobacco Use Status: Former Tobacco user Tobacco use type: Cigarette e-Cigarette/Vaping Use: Never Used Second Hand Smoke Exposure: No service: No Current occupational status: disabled Current occupational exposures/hazards: No Cognitive needs: No Hearing needs: No Vision needs: Yes Female Reproductive History Menstrual Age of Menarche: 12 Questionnaire PHQ-9 Over the last 2 weeks, how often have you been bothered by any of the following problems? 1. Little interest or pleasure in doing things: several days 2. Feeling down, depressed, or hopeless: several days 3. Trouble falling or staying asleep, or sleeping too much: several days 4. Feeling tired or having little energy: several days 5. Poor appetite or overeating: several days 6. Feeling bad about yourself - or that you are a failure or have let yourself or your family down: several days 7. Trouble concentrating on things, such as reading the newspaper or watching television: several days 8. Moving or speaking so slowly that other people could have noticed. Or the opposite - being so fidgety or restless that you have been moving around a lot more than usual: not at all 9. Thoughts that you would be better off or of hurting yourself in some way: not at all Total score: 7 Depression Screening Interpretation: Positive (Declines referral for therapy or starting any medication at present time) Depression Screening Follow-up: Existing condition, Community Mental Health Worker F/U and Declines treatment Depression Screening Done: Yes 34659 - PHQ-9 Billing: Yes Source: Developed by Drs. Norman Dorantes, Aminah Greer, Sina Jean and colleagues, with an educational kimi from [employer]. Thrive Questionnaire Date Thrive assessed: 06/07/24 I am a: Patient What is your living situation today?: I have a steady place to live Within the past 12 months, did the food you bought not last and you didn't have the money to get more?: Never true Within the past 12 months, did you worry whether your food would run out before you got money to buy more?: Never true Do you have trouble paying for medicines?: No Do you have trouble getting transportation to medical appointments?: No Do you have trouble paying your heating and electricity bill?: No Do you have trouble taking care of your child, family member or friend?: No Do you have trouble with day-to-day activities such as bathing, preparing meals, shopping, managing finances, etc.?: No Are you currently unemployed and looking for a job?: No Are you interested in more education?: No Please select the resources that you would like help with: None Currently or been in a relationship where the following occur: No concerns reported THRIVE Score: 0 AUDIT C Alcohol Use Questionnaire (AUDIT-C) 1. How often do you have a drink containing alcohol?: 2-4 times a month 2. How many drinks containing alcohol do you have on a typical day when you are drinking?: 1 or 2 3. How often do you have six or more drinks on one occasion?: Never Total Score: 2 FIGUEROA-7 AMB Questionnaire FIGUEROA-7 Date FIGUEROA - 7 assessed: 06/14/24 Feeling nervous, anxious, or on edge: 1 = Several days Not being able to stop or control worryin = Several days Worrying too much about different things: 1 = Several days Trouble relaxin = Several days Being so restless that it is hard to sit still: 1 = Several days Becoming easily annoyed or irritable: 1 = Several days Feeling afraid as if something awful might happen: 1 = Several days Total FIGUEROA-7 score (0-4 normal; 5-9 mild; 10-14 moderate; 15-21 severe): 7 Source: Developed by Drs. Norman Dorantes, Aminah Greer, Sina Jean and colleagues, with an educational kimi from [employer]. FIGUEROA-7 Assessment Billing FIGUEROA-7 Assessment Tool: FIGUEROA-7 Assessment 69454 Review of Systems Const Denies chills, Denies fever(s), Denies headache(s), Denies malaise and Reports weight loss Eyes Details: Up-to-date with her diabetes retinopathy screening, seen by Dr. Don 03/04/2024 with no retinopathy seen OU Denies change in vision ENT Denies headache(s), Denies epistaxis and Denies nasal discharge Card Denies chest pain, Denies irregular heart rhythm and Denies lightheadedness Resp Denies chest congestion, Denies cough and Denies hemoptysis GI Denies change in bowel habits, Denies heartburn and Denies nausea Denies difficulty voiding, Denies dysuria and Denies urinary incontinence Musc Reports no additional complaints Skin/Breast Denies rash Neuro Reports no additional complaints and Denies headache(s) Psych Details: Has been having low mood and anxiety attacks lately this past few months due to mom recently diagnosed with esophageal cancer and undergoing chemotherapy, patient does not want to start any medications or referral to therapist at present time Endo Reports no additional complaints [place]ell/Lymph Denies easy bleeding and Denies easy bruising Aller/Immun Reports no additional complaints Physical exam (Primary Care) Vital Signs: Last Vital Signs Temp 98.1 F 06/14/24 10:44 Pulse 85 06/14/24 10:44 Resp 16 06/14/24 10:44 BP 110/70 06/14/24 10:44 Pulse Ox 99 06/14/24 10:44 Oxygen Delivery Method Room Air 06/14/24 10:44 BMI result Body Mass Index 53.4 Tobacco/Smoking Status: Tobacco use Status Tobacco use date assessed 06/14/24 06/14/24 10:46 Patient Tobacco Use Status Former Tobacco user 06/14/24 10:46 Tobacco use type Cigarette 06/14/24 10:46 e-Cigarette/Vaping Use Never Used 06/14/24 10:46 PHQ-9: PHQ-9 Score PHQ-9: Total score 7 06/14/24 10:59 Depression Screening Interpretation: Positive (Declines referral for therapy or starting any medication at present time) Depression Screening Follow-up: Existing condition, Community Mental Health Worker F/U and Declines treatment Thrive Assessment: Date of Thrive Assessment Date Thrive assessed 06/07/24 06/14/24 10:46 Currently or been in a relationship where the following occur: No concerns reported Const General: cooperative and no acute distress Nutritional Appearance: obese morbidly obese Orientation/consciousness: patient oriented x3 HENMT Head: Yes normocephalic Mouth: Normal oral and palatal mucosa present, oropharynx normal and moist mucous membranes Eyes General: appearance normal, both eyes and all related structures Neck Neck: Yes full ROM, Yes no lymphadenopathy and Yes supple Resp Effort & Inspection: normal respiratory effort and no cough Cardio Rhythm: regular rhythm Heart sounds: S1 normal heart sound present and S2 normal heart sound present GI Other: Obese, normal bowel sounds, soft, nontender, no mass palpated General: Yes no CVA tenderness and Yes deferred (Has an upcoming appointment with her OBGYN for her pelvic exam and Pap smea) Back/Spine/Pelvis Back: no CVA tenderness and No back tenderness Skin General skin exam: no rashes or lesions noted and turgor normal Neuro General: patient oriented x3, gait normal, tone normal, moves all extremities, no focal motor deficits and CN's II-XI intact bilaterally Gait exam (Neuro): Normal gait present Extrem General: Yes full ROM, Yes no joint enlargement, Yes no clubbing, cyanosis or edema, Yes no calf tenderness and Yes normal gait Psych Appearance: grossly normal and well kempt Mental Status: mental status grossly normal Speech and movement: Normal speech and movement present Affect: normal affect Attitude: cooperative Thought process: Normal thought process present Thought content: Normal thought content present Results Reviewed Results Reviewed: Name: Jami Mathew Age/Sex: 39/F : 1985 Unit#: [id number] Attend Dr: Bethanie Masters MD Re05/20/24 Status: DEP REF Location: [facility] Disch: SPEC : [id number] BERNICE: 05/20/24 STATUS: COMP REQ : [id number] RECD: 05/20/[address]: Bethanie Masters MD COMP: 05/20/241133 ENTERED: 05/20/2451 [facility] DR: ORDERED: Met Prof Fast, AST, ALT, Lipid Panel, Vitamin D 25-OH Test Result Flag Reference Sodium 141 135-145 mmol/L Potassium 4.3 3.3-5.1 mmol/L CL 107 96-108 mmol/L CO2 28 22-29 mmol/L Gap 10 L 12-20 BUN 14 9-16 mg/dL Creat 0.68 0.5-1.4 mg/dL eGFR > 60 Chronic Kidney Disease: Estimated GFR < 60 mL/min/1.73m2 Severe Kidney Disease: Estimated GFR < 15 mL/min/1.73m2 FBS 132 H 60-99 mg/dL A fasting glucose of 126 mg/dl or greater on more than one occasion is considered diagnostic of diabetes. CA 9.1 8.4-10.2 mg/dL AST (GOT) 20 5-31 U/L ALT (GPT) 26 0-31 U/L Triglyceride 116 <150 mg/dL Desirable Triglyceride: less than 150 mg/dL Borderline High Triglyceride 150-199 mg/dL High Triglyceride: 200-499 mg/dL Very High Triglyceride: greater than or equal to 5OO mg/dL Cholesterol 191 <200 mg/dL Desirable Cholesterol: less than 200 mg/dL Borderline High Cholesterol: 200-239 mg/dL High Cholesterol: greater than 239 mg/dL LDL Calculated 113 H <100 mg/dL Desirable LDL: less than 100 mg/dL Near Optimal/Above Optimal LDL: 110-129 mg/dL Borderline High LDL: 130-159 mg/dL High LDL: 160-189 mg/dL Very High LDL: greater than or equal to 190 mg/dL HDL 55 >40 mg/dL Desirable HDL: greater than 40 mg/dL Note: This HDL assay may give artificially low results in patients with liver disease. Vitamin D 25-OH 29.9 L >30 ng/mL Health Based Reference Values* < 20 ng/mL Deficient 20-30 ng/mL Insufficient > 30 ng/mL Sufficient Laboratory Tests 05/20/24 08:59 Urine Creatinine 128.65 Urine Microalbumin 20.0 Microalb/Creat Ratio 15.5 Laboratory Tests 05/20/24 09:03 Estimat Average Glucose 146 Hemoglobin A1c % 6.7 H Coding Level of Care Code Est Pt Level 4 (28046) Complex EM visit Add On G2211 Diagnoses Type 2 diabetes mellitus with hyperglycemia, without long-term current use of insulin E11.65 Dyslipidemia E78.5 Morbid obesity due to excess calories E66.01 Depression with anxiety F41.8 Additional Codes PHQ-9 - 18957 - PHQ-9 Billing: Yes ([id number]) FIGUEROA-7 Assessment Billing - FIGUEROA-7 Assessment Tool: FIGUEROA-7 Assessment [id number] ([id number]) Assessment & Plan Assessment & Plan (1) Type 2 diabetes mellitus with hyperglycemia, without long-term current use of insulin: Code(s): E11.65 - Type 2 diabetes mellitus with hyperglycemia Category: Medical Plan: Diabetes mellitus controlled better now with a hemoglobin A1c at 6.7% from 7.1%. Goal is to go less than 6.5%. Will increase Jardiance dose to 25 mg per tablet to take once a day in a.m. an hour before breakfast, in will continue on metformin 500 mg to take 1 tablet twice a day with meals. Stressed importance of taking her medicines as directed, reinforced importance of getting at least 30 minutes of moderate intensity exercise 3 to 4 times a week, and compliance with recommended diet. Will see her back for follow-up in September 2023 after fasting labs done. Negative urine microalbumin on recent labs done (2) Dyslipidemia: Code(s): E78.5 - Hyperlipidemia, unspecified Category: Medical Plan: Lipids showed elevated LDL cholesterol, but lower than last check. Patient does not want to start statins right now wants to see if she can still continue lowering this through diet and exercise, will repeat another fasting lipid panel in September 2024. (3) Morbid obesity due to excess calories: Code(s): E66.01 - Morbid (severe) obesity due to excess calories Category: Medical Plan: Has lost some weight, not interested in starting GLP 1 agonist, continue stressed importance of doing regular exercise and adherence to recommended diet. (4) Depression with anxiety: Code(s): F41.8 - Other specified anxiety disorders Category: Medical Plan: Patient declines referral for counseling, or starting any medication at present time patient states that she is able to deal with the through behavioral techniques, will see her back for follow-up in 3 months.
== END 2024-06-14 11:16 | disposition home or self-care (01) ==
LOC: HO.HMCC 10:40
PROVIDERS: PCP Internal Medicine; Visit Provider Internal Medicine
DX: E11.65 Type 2 diabetes mellitus with hyperglycemia (principal); E66.01 Morbid (severe) obesity due to excess calories; Z68.43 Body mass index [BMI] 50.0-59.9, adult; E78.5 Hyperlipidemia, unspecified; F41.8 Other specified anxiety disorders

== ENCOUNTER → 2024-06-14 10:40 | Outpatient (BNVA) | payer OTHER, SELFPAY | PROVIDERS: PCP Internal Medicine; Visit Provider Internal Medicine | DX: E78.5 Hyperlipidemia, unspecified (principal); E11.65 Type 2 diabetes mellitus with hyperglycemia; E66.01 Morbid (severe) obesity due to excess calories; J45.20 Mild intermittent asthma, uncomplicated; F41.8 Other specified anxiety disorders; Z79.84 Long term (current) use of oral hypoglycemic drugs; Z87.891 Personal history of nicotine dependence; Z68.43 Body mass index [BMI] 50.0-59.9, adult | CPT/HCPCS: 96127; 99212 ==

== ENCOUNTER 2024-07-08 11:35 | Outpatient (AMB) | payer OTHER, SELFPAY ==
--- NOTE | 2024-07-08 11:38 | AM.OFFWIN_ITS ---
Intake Vital Signs 07/08/24 13:33 Weight 308 lb BP 140/100 H Blood Pressure Location Rt brachial Position Sitting Pulse 93 Pulse Source Pulse Oximeter Temp 98.6 F Temp Source Oral Pulse Oximetry (%) 98 Oxygen Delivery Method Room Air Intake Visit Reasons: EP-chest tightness,[phone] Intake Note: Patient here for chest tightness, cough and fevers Patient Tobacco Use Status: Former Tobacco user Allergies No Known Allergies [No Known Allergies*] Allergy (Verified 07/08/24 13:24) Do you need a note to return to daycare/school/sports/work: No HPI HPI Comments History of Present Illness Details 39 y/o Female patient who presents to [facility] walk in clinic with c/o chest tightness, cough and Subjective fevers for few days now. [facility] Medical History (Updated 07/08/24 @ 13:49 by Alicia Anderson NP) Acute respiratory disease Depression with anxiety Type 2 diabetes mellitus with hyperglycemia, without long-term current use of insulin Mild intermittent asthma Dyslipidemia Surgical History Hx of section Family History Mother Fibromyalgia Mental health disorder Father Diabetes Hypertension High cholesterol Mental health disorder Sister Mental health disorder Sister Mental health disorder Social History Household Members: Family Housing: Apartment Do you presently have visiting nurse or other home services: No Patient Tobacco Use Status: Former Tobacco user Tobacco use type: Cigarette e-Cigarette/Vaping Use: Never Used Second Hand Smoke Exposure: No service: No Current occupational status: disabled Current occupational exposures/hazards: No Cognitive needs: No Hearing needs: No Vision needs: Yes Female Reproductive History Menstrual Age of Menarche: 12 Review of Systems Const All systems reviewed & are unremarkable except as noted in HPI and below Physical Exam Vital Signs: Last Vital Signs Temp 98.6 F 07/08/24 13:33 Pulse 93 07/08/24 13:33 BP 140/100 H 07/08/24 13:33 Pulse Ox 98 07/08/24 13:33 Oxygen Delivery Method Room Air 07/08/24 13:33 Const General: no acute distress Nutritional Appearance: obese morbidly obese Orientation/consciousness: patient oriented x3 HEENT Head: Yes normocephalic Ears: external ears normal and TM abnormal with fluid behind the TM bilateral General nose exam: Normal external nose present Mouth: moist mucous membranes Resp Effort & Inspection: normal respiratory effort and able to speak in complete sentences Auscultation: clear to auscultation bilaterally, no crackles, no rales, no rh onchi and no wheezes Cardio Heart sounds: S1 normal heart sound present and S2 normal heart sound present Neuro General: patient oriented x3 Assessment & Plan Assessment & Plan (1) Acute respiratory disease: Code(s): J06.9 - Acute upper respiratory infection, unspecified Plan: OTC cold and Flu remedies. Acetaminophne for pain relief. Rest and hydrate well with warm fluids. Coding Level of Care Code Est Pt Level 4 (37067) Diagnoses Acute respiratory disease J06.9 Time Spent (min) 20
[2024-07-08 13:33] VITALS: BP 140/100; PULSE 93; TEMP 37; O2SAT 98
== END 2024-07-08 13:47 | disposition home or self-care (01) ==
PROVIDERS: PCP Internal Medicine; Visit Provider Nurse Practitioner Family
DX: J06.9 Acute upper respiratory infection, unspecified (principal)

== ENCOUNTER → 2024-07-08 11:35 | Outpatient (BNVA) | payer OTHER, SELFPAY | PROVIDERS: PCP Internal Medicine; Visit Provider Nurse Practitioner Family | DX: J06.9 Acute upper respiratory infection, unspecified (principal) | CPT/HCPCS: 99212 ==

== ENCOUNTER 2024-07-12 11:48 | Outpatient (AMB) | payer OTHER, SELFPAY ==
--- NOTE | 2024-07-12 12:09 | MHC.PC.OV ---
Vital Signs 07/12/24 12:22 Height 5 ft 5 in Weight 308 lb BMI 51.2 BP 130/84 Blood Pressure Location Rt brachial Position Sitting Respiration 20 Pulse 83 Pulse Source Pulse Oximeter Temp 98.9 F Temp Source Oral Pulse Oximetry (%) 97 Intake Visit Reasons: increased anxiety Allergies No Known Allergies [No Known Allergies*] Allergy (Verified 07/12/24 12:38) Medication List - Last Reconciled 07/12/24 by Bethanie Masters MD albuterol sulfate 2.5 mg (3 mL) inhalation QID PRN albuterol sulfate 90 mcg/actuation 2 puffs inhalation Q6H PRN alcohol swabs (Alcohol Prep Pads) Patient to check blood sugar once daily blood sugar diagnostic (FreeStyle Lite Strips) patient to check blood sugar once daily blood-glucose meter (FreeStyle Lite Meter kit) patient to check blood sugar once daily Jardiance (empagliflozin) 25 mg PO QAM NS lancets (FreeStyle Lancets) Patient to check blood sugar once daily metformin 500 mg PO BIDWMEAL 3 months Tobacco use date assessed: 07/12/24 Dental Screening Dental Screen Date: 06/14/24 HPI increased anxiety HPI Details - The patient is a 39-year-old female presenting with generalized anxiety and follow-up for blood work and medication management. - Anxiety has been ongoing for the past week, described as difficulty breathing, and physical manifestations like palpitations and a stomach ache. - Previously was on bupropion (Wellbutrin) , which was not effective. Anxiety is potentially exacerbated by her mother's cancer diagnosis. - Recurring hemorrhoidal issues reported with occasional light bleeding, onset of symptoms intensified in the past month. - Long-standing vitamin D deficiency noted. [facility], [facility] Medical History (Updated 07/12/24 @ 12:47 by Bethanie Masters MD) Generalized anxiety disorder Acute respiratory disease Depression with anxiety Type 2 diabetes mellitus with hyperglycemia, without long-term current use of insulin Mild intermittent asthma Dyslipidemia Surgical History Hx of section Family History Mother Fibromyalgia Mental health disorder Father Diabetes Hypertension High cholesterol Mental health disorder Sister Mental health disorder Sister Mental health disorder Social History Household Members: Family Housing: Apartment Do you presently have visiting nurse or other home services: No Patient Tobacco Use Status: Former Tobacco user Tobacco use type: Cigarette e-Cigarette/Vaping Use: Never Used Second Hand Smoke Exposure: No service: No Current occupational status: disabled Current occupational exposures/hazards: No Cognitive needs: No Hearing needs: No Vision needs: Yes Female Reproductive History Menstrual Age of Menarche: 12 Questionnaire Thrive Questionnaire Date Thrive assessed: 06/07/24 I am a: Patient What is your living situation today?: I have a steady place to live Within the past 12 months, did the food you bought not last and you didn't have the money to get more?: Never true Within the past 12 months, did you worry whether your food would run out before you got money to buy more?: Never true Do you have trouble paying for medicines?: No Do you have trouble getting transportation to medical appointments?: No Do you have trouble paying your heating and electricity bill?: No Do you have trouble taking care of your child, family member or friend?: No Do you have trouble with day-to-day activities such as bathing, preparing meals, shopping, managing finances, etc.?: No Are you currently unemployed and looking for a job?: No Are you interested in more education?: No Please select the resources that you would like help with: None Currently or been in a relationship where the following occur: No concerns reported THRIVE Score: 0 AUDIT C Alcohol Use Questionnaire (AUDIT-C) 1. How often do you have a drink containing alcohol?: 2-4 times a month 2. How many drinks containing alcohol do you have on a typical day when you are drinking?: 1 or 2 3. How often do you have six or more drinks on one occasion?: Never Total Score: 2 FIGUEROA-7 AMB Questionnaire FIGUEROA-7 Date FIGUEROA - 7 assessed: 07/12/24 Feeling nervous, anxious, or on edge: 3 = Nearly every day Not being able to stop or control worryin = Nearly every day Worrying too much about different things: 3 = Nearly every day Trouble relaxin = Nearly every day Being so restless that it is hard to sit still: 3 = Nearly every day Becoming easily annoyed or irritable: 3 = Nearly every day Feeling afraid as if something awful might happen: 3 = Nearly every day Total FIGUEROA-7 score (0-4 normal; 5-9 mild; 10-14 moderate; 15-21 severe): 21 Source: Developed by Drs. Norman Dorantes, Aminah Greer, Sina Jean and colleagues, with an educational kimi from [employer]. FIGUEROA-7 Assessment Billing FIGUEROA-7 Assessment Tool: FIGUEROA-7 Assessment 54300 Review of Systems Const All systems reviewed & are unremarkable except as noted in HPI and below Physical exam (Primary Care) Vital Signs: Last Vital Signs Temp 98.9 F 07/12/24 12:22 Pulse 83 07/12/24 12:22 Resp 20 07/12/24 12:22 BP 130/84 07/12/24 12:22 Pulse Ox 97 07/12/24 12:22 BMI result Body Mass Index 51.2 Tobacco/Smoking Status: Tobacco use Status Tobacco use date assessed 07/12/24 07/12/24 12:25 Patient Tobacco Use Status Former Tobacco user 07/12/24 12:09 Tobacco use type Cigarette 07/12/24 12:09 e-Cigarette/Vaping Use Never Used 07/12/24 12:09 Thrive Assessment: Date of Thrive Assessment Date Thrive assessed 06/07/24 07/12/24 12:09 Currently or been in a relationship where the following occur: No concerns reported Const General: cooperative and no acute distress Nutritional Appearance: obese morbidly obese Orientation/consciousness: patient oriented x3 HENMT Head: Yes normocephalic Mouth: Normal oral and palatal mucosa present, oropharynx normal and moist mucous membranes Eyes General: appearance normal, both eyes and all related structures Neck Neck: Yes full ROM, Yes no lymphadenopathy and Yes supple Resp Effort & Inspection: normal respiratory effort and no cough Cardio Rhythm: regular rhythm Heart sounds: S1 normal heart sound present and S2 normal heart sound present GI Other: Obese, normal bowel sounds, soft, nontender, no mass palpated Back/Spine/Pelvis Back: No back tenderness Skin General skin exam: no rashes or lesions noted and turgor normal Neuro General: patient oriented x3, gait normal, tone normal, moves all extremities, no focal motor deficits and CN's II-XI intact bilaterally Gait exam (Neuro): Normal gait present Extrem General: Yes full ROM, Yes no joint enlargement, Yes no clubbing, cyanosis or edema, Yes no calf tenderness and Yes normal gait Psych Appearance: grossly normal and well kempt Mental Status: mental status grossly normal Speech and movement: Normal speech and movement present Affect: normal affect Attitude: cooperative Thought process: Normal thought process present Thought content: Normal thought content present Results Reviewed Results Reviewed: Name: Jami Mathew Age/Sex: 39/F : 1985 Unit#: [id number] Attend Dr: Bethanie Masters MD Re05/20/24 Status: DEP REF Location: .LAB Disch: SPEC : [id number] BERNICE: 05/20/24 STATUS: COMP REQ : [id number] RECD: 05/20/[address]: Bethanie Masters MD COMP: 05/20/243 ENTERED: 05/20/[address]: ORDERED: Met Prof Fast, AST, ALT, Lipid Panel, Vitamin D 25-OH Test Result Flag Reference Sodium 141 135-145 mmol/L Potassium 4.3 3.3-5.1 mmol/L CL 107 96-108 mmol/L CO2 28 22-29 mmol/L Gap 10 L 12-20 BUN 14 9-16 mg/dL Creat 0.68 0.5-1.4 mg/dL eGFR > 60 Chronic Kidney Disease: Estimated GFR < 60 mL/min/1.73m2 Severe Kidney Disease: Estimated GFR < 15 mL/min/1.73m2 FBS 132 H 60-99 mg/dL A fasting glucose of 126 mg/dl or greater on more than one occasion is considered diagnostic of diabetes. CA 9.1 8.4-10.2 mg/dL AST (GOT) 20 5-31 U/L ALT (GPT) 26 0-31 U/L Triglyceride 116 <150 mg/dL Desirable Triglyceride: less than 150 mg/dL Borderline High Triglyceride 150-199 mg/dL High Triglyceride: 200-499 mg/dL Very High Triglyceride: greater than or equal to 5OO mg/dL Cholesterol 191 <200 mg/dL Desirable Cholesterol: less than 200 mg/dL Borderline High Cholesterol: 200-239 mg/dL High Cholesterol: greater than 239 mg/dL LDL Calculated 113 H <100 mg/dL Desirable LDL: less than 100 mg/dL Near Optimal/Above Optimal LDL: 110-129 mg/dL Borderline High LDL: 130-159 mg/dL High LDL: 160-189 mg/dL Very High LDL: greater than or equal to 190 mg/dL HDL 55 >40 mg/dL Desirable HDL: greater than 40 mg/dL Note: This HDL assay may give artificially low results in patients with liver disease. Vitamin D 25-OH 29.9 L >30 ng/mL Health Based Reference Values* < 20 ng/mL Deficient 20-30 ng/mL Insufficient > 30 ng/mL Sufficient Laboratory Tests 05/20/24 05/20/24 08:59 09:03 Estimat Average Glucose 146 Hemoglobin A1c % 6.7 H Urine Creatinine 128.65 Urine Microalbumin 20.0 Microalb/Creat Ratio 15.5 Coding Level of Care Code Est Pt Level 4 (06795) Diagnoses Generalized anxiety disorder F41.1 Additional Codes FIGUEROA-7 Assessment Billing - FIGUEROA-7 Assessment Tool: FIGUEROA-7 Assessment 53994 ([id number]) Assessment & Plan Assessment & Plan (1) Generalized anxiety disorder: Code(s): F41.1 - Generalized anxiety disorder Category: Medical Plan: Started on sertraline 50 mg per tablet, initially take half a tablet once a day for the 1st week and may increase dose to a whole tablet or 50 mg once a day on the 2nd week depending on her symptoms. Prescription also was given for short course of lorazepam 0.5 mg to take 1 tablet as needed for acute anxiety attacks. Patient warned that it can be habit-forming so not to take the medicine on a regular basis. Will have Gissel our mental health coordinator call her to provide assistance in getting referred for counseling. Discussed other ways to relieve stress including : exercise or a massage, Get enough rest, Avoid alcohol, caffeine, nicotine, and illegal drugs which can increase your anxiety level and cause sleep problems. Medications: New sertraline 50 mg PO DAILY 30 tabs 2RF lorazepam 0.5 mg PO DAILY PRN 7 tabs 0RF anxiety F41.1 - Generalized anxiety disorder
[2024-07-12 12:22] VITALS: BP 130/84; PULSE 83; RESP 20; TEMP 37.2; O2SAT 97; BMI 51.2
== END 2024-07-12 12:50 | disposition home or self-care (01) ==
LOC: HO.HMCC 11:50
PROVIDERS: PCP Internal Medicine; Visit Provider Internal Medicine
DX: F41.1 Generalized anxiety disorder (principal)

== ENCOUNTER → 2024-07-12 11:48 | Outpatient (BNVA) | payer OTHER, SELFPAY | PROVIDERS: PCP Internal Medicine; Visit Provider Internal Medicine | DX: F41.1 Generalized anxiety disorder (principal) | CPT/HCPCS: 96127; 99212 ==

== ENCOUNTER 2024-08-26 10:35 | Outpatient (AMB) | payer OTHER, SELFPAY ==
--- NOTE | 2024-08-26 10:29 | A.OFFPC_ITS ---
Intake Visit Reasons: TV follow up Intake Note: Pt is having a telehealth visit to f/u depression medication (mom past on 08/15/24) Allergies No Known Allergies (No Known Allergies*) Allergy (Verified 08/26/24 10:49) Medication List - Last Reconciled 08/26/24 by Bethanie Masters MD albuterol sulfate 2.5 mg (3 mL) inhalation QID PRN albuterol sulfate 90 mcg/actuation 2 puffs inhalation Q6H PRN alcohol swabs (Alcohol Prep Pads) Patient to check blood sugar once daily blood sugar diagnostic (FreeStyle Lite Strips) patient to check blood sugar once daily blood-glucose meter (FreeStyle Lite Meter kit) patient to check blood sugar once daily Jardiance (empagliflozin) 25 mg PO QAM NS lancets (FreeStyle Lancets) Patient to check blood sugar once daily lorazepam 0.5 mg PO DAILY PRN metformin 500 mg PO BIDWMEAL 3 months sertraline 50 mg PO DAILY Tobacco use date assessed: 08/26/24 Dental Screening Dental Screen Date: 08/26/24 Did you have a dental visit in the last 12 months?: No Did you have a dental problem in the last 6 months where you did not have access to dental care?: No Was dental information given to patient?: Patient declined HPI TV follow up HPI Details - The patient is a 39-year-old female pr esenting with grief and anxiety management. - She is currently on sertraline, which has improved her condition compared to the previous month. - Lorazepam is taken only as needed, wit h a few pills remaining from a previous prescription. - The patient is managing her diabetes b ut finds it challenging to remember taking her medication consistently. - She has upcoming laboratory tests sche duled for September, which she plans to complete before her next appointment. - The patient has attempted to set up [facility] sessions with [facility] but has not yet had an appointment due to communication issues. [facility] Medical History Generalized anxiety disorder Acute respiratory disease Depression with anxiety Type 2 diabetes mellitus with hyperglycemia, without long-term current use of insulin Mild intermittent asthma Dyslipidemia Surgical History Hx of section Family History Mother Fibromyalgia Mental health disorder Father Diabetes Hypertension High cholesterol Mental health disorder Sister Mental health disorder Sister Mental health disorder Social History Household Members: Family Housing: Apartment Do you presently have visiting nurse or other home services: No Patient Tobacco Use Status: Former Tobacco user Tobacco use type: Cigarette e-Cigarette/Vaping Use: Never Used Second Hand Smoke Exposure: No service: No Current occupational status: disabled Current occupational exposures/hazards: No Cognitive needs: No Hearing needs: No Vision needs: Yes Female Reproductive History Menstrual Age of Menarche: 12 Questionnaire PHQ-9 Over the last 2 weeks, how often have you been bothered by any of the following problems? 1. Little interest or pleasure in doing things: several days 2. Feeling down, depressed, or hopeless: several days 3. Trouble falling or staying asleep, or sleeping too much: several days 4. Feeling tired or having little energy: several days 5. Poor appetite or overeating: several days 6. Feeling bad about yourself - or that you are a failure or have let yourself or your family down: several days 7. Trouble concentrating on things, such as reading the newspaper or watching television: several days 8. Moving or speaking so slowly that other people could have noticed. Or the opposite - being so fidgety or restless that you have been moving around a lot m ore than usual: not at all 9. Thoughts that you would be better off or of hurting yourself in some way: not at all Total score: 7 Depression Screening Interpretation: Negative Depression Screening Done: Yes 83006 - PHQ-9 Billing: Yes Source: Developed by Drs. Norman Dorantes, Aminah Greer, Sina Jean and colleagues, with an educational kimi from [employer]. Thrive Questionnaire Date Thrive assessed: 06/07/24 I am a: Patient What is your living situation today?: I have a steady place to live Within the past 12 months, did the food you bought not last and you didn't have the money to get more?: Never true Within the past 12 months, did you worry whether your food would run out before you got money to buy more?: Never true Do you have trouble paying for medicines?: No Do you have trouble getting transportation to medical appointments?: No Do you have trouble paying your heating and electricity bill?: No Do you have trouble taking care of your child, family member or friend?: No Do you have trouble with day-to-day activities such as bathing, preparing meals, shopping, managing finances, etc.?: No Are you currently unemployed and looking for a job?: No Are you interested in more education?: No Please select the resources that you would like help with: None Currently or been in a relationship where the following occur: No concerns reported THRIVE Score: 0 FIGUEROA-7 AMB Questionnaire FIGUEROA-7 Date FIGUEROA - 7 assessed: 08/26/24 Feeling nervous, anxious, or on edge: 1 = Several days Not being able to stop or control worryin = Not at all Worrying too much about different things: 1 = Several days Trouble relaxin = Several days Being so restless that it is hard to sit still: 1 = Several days Becoming easily annoyed or irritable: 1 = Several days Feeling afraid as if something awful might happen: 1 = Several days Total FIGUEROA-7 score (0-4 normal; 5-9 mild; 10-14 moderate; 15-21 severe): 6 Source: Developed by Drs. Norman Dorantes, Aminah Greer, Sina Jean and colleagues, with an educational kimi from [employer]. Review of Systems Const All systems reviewed & are unremarkable except as noted in HPI and below Physical exam (Primary Care) Tobacco/Smoking Status: Tobacco use Status Tobacco use date assessed 08/26/24 08/26/24 10:30 Patient Tobacco Use Status Former Tobacco user 08/26/24 10:30 Tobacco use type Cigarette 08/26/24 10:30 e-Cigarette/Vaping Use Never Used 08/26/24 10:30 PHQ-9: PHQ-9 Score PHQ-9: Total score 7 08/26/24 13:04 Depression Screening Interpretation: Negative Thrive Assessment: Date of Thrive Assessment Date Thrive assessed 06/07/24 08/26/24 10:30 Currently or been in a relationship where the following occur: No concerns reported Telehealth Telehealth Telehealth Platform: [facility] Location of provider rendering services: practice address Location of patient: address on file Patient Identification confirmed using: Name, : Yes Telehealth method: video Patient verbally consented to treatment: Yes Patient verbally consented to billing insurance company: Yes Patient informed of any privacy concerns related to visit: Yes Minutes spent on Phone/Video with Pt.: 15 Coding Level of Care Code Tele Est Pt Level 4 (89080) Diagnoses Depression with anxiety F41.8 Additional Codes PHQ-9 - 32620 - PHQ-9 Billing: Yes ([id number]) Assessment & Plan Assessment & Plan (1) Depression with anxiety: Code(s): F41.8 - Other specified anxiety disorders Category: Medical Plan - The patient will continue with sertraline at the current dose, as it has been effective in managing her anxiety symptoms. A prescription for lorazepam will be provided for use as needed, given the patient's understanding of its potential for dependence. The patient is advised to maintain adherence to her diabetes medication and complete her laboratory tests before the next appointment in September. Efforts will be made to facilitate the patient's access to therapy services through [facility], with follow-up by the mental health coordinator. Patient was informed and verbally consented to the use of an ambient scribe for clinic note documentation during this visit. Medications: Refilled sertraline 50 mg PO DAILY 30 tabs 5RF lorazepam 0.5 mg PO DAILY PRN 7 tabs 0RF anxiety F41.1 - Generalized anxiety disorder
== END 2024-08-26 13:05 | disposition home or self-care (01) ==
LOC: HO.HMCC 10:35
PROVIDERS: PCP Internal Medicine; Visit Provider Internal Medicine
DX: F41.8 Other specified anxiety disorders (principal)

== ENCOUNTER → 2024-08-26 10:35 | Outpatient (BNVA) | payer OTHER, SELFPAY | PROVIDERS: PCP Internal Medicine; Visit Provider Internal Medicine | DX: F41.8 Other specified anxiety disorders (principal); Z13.31 Encounter for screening for depression; Z13.39 Encounter for screening examination for other mental health and behavioral disorders | CPT/HCPCS: 96127 ==

== ENCOUNTER 2024-10-07 07:46 | Outpatient (REF) | payer OTHER, SELFPAY ==
[2024-10-07 10:34] LABS: Hemoglobin A1C 167.7557 umol/L; Total Hemoglobin (HGBA1C) 3804.9112 umol/L
[2024-10-07 11:15] LABS: Alanine Aminotransferase 10 U/L (0-31); Anion Gap 14 (12-20); Aspartate Amino Transferase 25 U/L (5-31); Blood Urea Nitrogen 15 mg/dL (9-16); Calcium 8.9 mg/dL (8.4-10.2); Carbon Dioxide 25 mmol/L (22-29); Chloride 105 mmol/L (96-108); Cholesterol 193 mg/dL (<200); Estimated Glomerular Filt Rate > 60; HDL Cholesterol 54 mg/dL (>40); Potassium 4.3 mmol/L (3.3-5.1); Sodium 140 mmol/L (135-145); Triglycerides 157 mg/dL (<150)
== END 2024-10-07 07:47 | disposition home or self-care (01) ==
LOC: HO.HMGCLDS 07:46
PROVIDERS: PCP Internal Medicine; Visit Provider Internal Medicine
DX: E11.65 Type 2 diabetes mellitus with hyperglycemia (principal); E78.5 Hyperlipidemia, unspecified; E66.01 Morbid (severe) obesity due to excess calories; F41.8 Other specified anxiety disorders
CPT/HCPCS: 36415; 80048; 80061; 83036; 84450; 84460

== ENCOUNTER 2024-10-12 11:33 | Outpatient (AMB) | payer OTHER, SELFPAY ==
--- NOTE | 2024-10-12 12:39 | A.OFFPC_ITS ---
Vital Signs 10/12/24 12:40 Height 5 ft 5 in Weight 300 lb BMI 49.9 BP 120/84 Blood Pressure Location Rt brachial Position Sitting Respiration 16 Pulse 91 Pulse Source Pulse Oximeter Temp 98.6 F Temp Source Oral Pulse Oximetry (%) 99 Oxygen Delivery Method Room Air Intake Visit Reasons: f/up DM, lipids, hypertension Allergies No Known Allergies (No Known Allergies*) Allergy (Verified 10/12/24 13:05) Medication List - Last Reconciled 10/12/24 by Bethanie Masters MD albuterol sulfate 2.5 mg (3 mL) inhalation QID PRN albuterol sulfate 90 mcg/actuation 2 puffs inhalation Q6H PRN alcohol swabs (Alcohol Prep Pads) Patient to check blood sugar once daily B.coagulans-digestive enzym 10 2 billion cell (Digestive Advantage Probiotics Plus Gas) caps PO blood sugar diagnostic (FreeStyle Lite Strips) patient to check blood sugar once daily blood-glucose meter (FreeStyle Lite Meter kit) patient to check blood sugar once daily Jardiance (empagliflozin) 25 mg PO QAM NS lancets (FreeStyle Lancets) Patient to check blood sugar once daily lorazepam 0.5 mg PO DAILY PRN metformin 500 mg PO BIDWMEAL 3 months multivitamin 1 tab PO DAILY sertraline 50 mg PO DAILY Tobacco use date assessed: 10/12/24 Dental Screening Dental Screen Date: 08/26/24 HPI f/up DM, lipids, hypertension HPI Details - The patient is a 39-year-old female pr esenting with Type 2 Diabetes Mellitus management. - Type 2 Diabetes Mellitus: The patient' s HbA1c has decreased from 6.7% to 6.2%, - The patient's recent fasting glucose level was 121 mg/dL, down from 132 mg/dL previously. - Hyperlipidemia: The patient's LDL chol esterol is 108 mg/dL, slightly reduced from 113 mg/dL, but still above the target of 100 mg/dL. - Anxiety Disorder: The patient is curre ntly taking sertraline 50 mg daily, which she reports is effective, although she occasionally experiences anxiety. - She has lorazepam available for acute anxiety episodes but has not needed it recently. - Lactose Intolerance: The patient repor ts gastrointestinal discomfort when consuming lactose-containing foods. - Facial Rash: The patient has a persist ent facial rash, present for as long as she can remember. REPLACED BY [facility] Medical History (Updated 10/18/24 @ 01:52 by Bethanie Masters MD) Diabetes mellitus type 2, controlled, without complications Generalized anxiety disorder Acute respiratory disease Depression with anxiety Mild intermittent asthma Dyslipidemia Surgical History Hx of section Family History Mother Fibromyalgia Mental health disorder Father Diabetes Hypertension High cholesterol Mental health disorder Sister Mental health disorder Sister Mental health disorder Social History Household Members: Family Housing: Apartment Do you presently have visiting nurse or other home services: No Patient Tobacco Use Status: Former Tobacco user Tobacco use type: Cigarette e-Cigarette/Vaping Use: Never Used Second Hand Smoke Exposure: No service: No Current occupational status: disabled Current occupational exposures/hazards: No Cognitive needs: No Hearing needs: No Vision needs: Yes Female Reproductive History Menstrual Age of Menarche: 12 Questionnaire Thrive Questionnaire Date Thrive assessed: 06/07/24 I am a: Patient What is your living situation today?: I have a steady place to live Within the past 12 months, did the food you bought not last and you didn't have the money to get more?: Never true Within the past 12 months, did you worry whether your food would run out before you got money to buy more?: Never true Do you have trouble paying for medicines?: No Do you have trouble getting transportation to medical appointments?: No Do you have trouble paying your heating and electricity bill?: No Do you have trouble taking care of your child, family member or friend?: No Do you have trouble with day-to-day activities such as bathing, preparing meals, shopping, managing finances, etc.?: No Are you currently unemployed and looking for a job?: No Are you interested in more education?: No Please select the resources that you would like help with: None Currently or been in a relationship where the following occur: No concerns reported THRIVE Score: 0 FIGUEROA-7 AMB Questionnaire FIGUEROA-7 Date FIGUEROA - 7 assessed: 08/26/24 Source: Developed by Aminah Brewster Percy, Sina Jean and colleagues, with an educational kimi from [employer]. Review of Systems Const All systems reviewed & are unremarkable except as noted in HPI and below Eyes Details: Sees Dr. Don up-to-date with diabetic retinopathy testing Physical exam (Primary Care) Vital Signs: Last Vital Signs Temp 98.6 F 10/12/24 12:40 Pulse 91 10/12/24 12:40 Resp 16 10/12/24 12:40 BP 120/84 10/12/24 12:40 Pulse Ox 99 10/12/24 12:40 Oxygen Delivery Method Room Air 10/12/24 12:40 BMI result Body Mass Index 49.9 Tobacco/Smoking Status: Tobacco use Status Tobacco use date assessed 10/12/24 10/12/24 12:43 Patient Tobacco Use Status Former Tobacco user 10/12/24 12:39 Tobacco use type Cigarette 10/12/24 12:39 e-Cigarette/Vaping Use Never Used 10/12/24 12:39 Thrive Assessment: Date of Thrive Assessment Date Thrive assessed 06/07/24 10/12/24 12:39 Currently or been in a relationship where the following occur: No concerns reported Const General: cooperative and no acute distress Nutritional Appearance: obese morbidly obese Orientation/consciousness: patient oriented x3 HENMT Head: Yes normocephalic Mouth: Normal oral and palatal mucosa present, oropharynx normal and moist mucous membranes Eyes General: appearance normal, both eyes and all related structures Neck Neck: Yes full ROM, Yes no lymphadenopathy and Yes supple Resp Effort & Inspection: normal respiratory effort and no cough Cardio Rhythm: regular rhythm Heart sounds: S1 normal heart sound present and S2 normal heart sound present GI Other: Obese, normal bowel sounds, soft, nontender, no mass palpated Back/Spine/Pelvis Back: No back tenderness Skin Rashes: rashes noted (cheeks and nasal bridge) Neuro General: patient oriented x3, gait normal, tone normal, moves all extremities, n o focal motor deficits and CN's II-XI intact bilaterally Gait exam (Neuro): Normal gait present Extrem General: Yes full ROM, Yes no joint enlargement, Yes no clubbing, cyanosis or edema, Yes no calf tenderness and Yes normal gait Psych Appearance: grossly normal and well kempt Mental Status: mental status grossly normal Speech and movement: Normal speech and movement present Affect: normal affect Results Reviewed Results Reviewed: Name: Jami Mathew Age/Sex: 39/F : 1985 Unit#: [id number] Attend Dr: Bethanie Masters MD Re10/07/24 Status: DEP REF Location: [facility] Disch: SPEC : [id number] BERNICE: 10/07/24 STATUS: COMP REQ : [id number] RECD: 10/07/24-[address]: Bethanie Masters MD COMP: 10/07/24 ENTERED: 10/07/[address]: ORDERED: Met Prof Fast, AST, ALT, Lipid Panel Test Result Flag Reference Sodium 140 135-145 mmol/L Potassium 4.3 3.3-5.1 mmol/L CL 105 96-108 mmol/L CO2 25 22-29 mmol/L Gap 14 12-20 BUN 15 9-16 mg/dL Creat 0.68 0.5-1.4 mg/dL eGFR > 60 Chronic Kidney Disease: Estimated GFR < 60 mL/min/1.73m2 Severe Kidney Disease: Estimated GFR < 15 mL/min/1.73m2 FBS 121 H 60-99 mg/dL A fasting glucose from 100-125 mg/dl is considered impaired (pre-diabetes). CA 8.9 8.4-10.2 mg/dL AST (GOT) 25 5-31 U/L ALT (GPT) 10 0-31 U/L Triglyceride 157 H <150 mg/dL Desirable Triglyceride: less than 150 mg/dL Borderline High Triglyceride 150-199 mg/dL High Triglyceride: 200-499 mg/dL Very High Triglyceride: greater than or equal to 5OO mg/dL Cholesterol 193 <200 mg/dL Desirable Cholesterol: less than 200 mg/dL Borderline High Cholesterol: 200-239 mg/dL High Cholesterol: greater than 239 mg/dL LDL Calculated 108 H <100 mg/dL Desirable LDL: less than 100 mg/dL Near Optimal/Above Optimal LDL: 110-129 mg/dL Borderline High LDL: 130-159 mg/dL High LDL: 160-189 mg/dL Very High LDL: greater than or equal to 190 mg/dL HDL 54 >40 mg/dL Desirable HDL: greater than 40 mg/dL Note: This HDL assay may give artificially low results in patients with liver disease. Laboratory Tests 05/20/24 10/07/24 08:59 07:50 Estimat Average Glucose 131 Hemoglobin A1c % 6.2 H Urine Creatinine 128.65 Urine Microalbumin 20.0 Microalb/Creat Ratio 15.5 Coding Level of Care Code Est Pt Level 4 (77501) Complex EM visit Add On G2211 Diagnoses Rash of face R21 Depression with anxiety F41.8 Dyslipidemia E78.5 Diabetes mellitus type 2, controlled, without complications E11.9 Assessment & Plan Assessment & Plan (1) Rash of face: Code(s): R21 - Rash and other nonspecific skin eruption Plan: Referred to dermatology for further evaluation management (2) Depression with anxiety: Code(s): F41.8 - Other specified anxiety disorders Category: Medical Plan: Continued on sertraline 50 mg once daily. (3) Dyslipidemia: Code(s): E78.5 - Hyperlipidemia, unspecified Category: Medical Plan: Reviewed recent fasting lipid profile with patient with levels . Continue , in addition to adherence to low-cholesterol diet and regular exercise, at least 30 minutes 3 to 4 times a week. Advised patient to make healthy food choices, eat more fruits, vegetables, whole grains, wild caught fish and low- fat dairy. Limit amount of meat and fried or fatty food products, as well as processed foods and fast foods. Follow-up scheduled with repeat fasting lipid panel in months. (4) Diabetes mellitus type 2, controlled, without complications: Code(s): E11.9 - Type 2 diabetes mellitus without complications Category: Medical Plan: Continue with metformin 500 mg 1 tablet twice a day taken with meals and Jardi ance 25 mg daily in a.m.. Stressed importance of getting diabetes retinopathy screening and we inspect feet for any beginning ulcers or patient is present. Orders: Referrals Dermatology Referral R21 - Rash and other nonspecific skin eruption Medications: Refilled sertraline 50 mg PO DAILY 90 tabs 3RF
[2024-10-12 12:40] VITALS: BP 120/84; PULSE 91; RESP 16; TEMP 37; O2SAT 99; BMI 49.9
== END 2024-10-12 16:34 | disposition home or self-care (01) ==
LOC: HO.HMCC 11:34
PROVIDERS: PCP Internal Medicine; Visit Provider Internal Medicine
DX: R21 Rash and other nonspecific skin eruption (principal); F41.8 Other specified anxiety disorders; E78.5 Hyperlipidemia, unspecified; E11.9 Type 2 diabetes mellitus without complications

== ENCOUNTER → 2024-10-12 11:33 | Outpatient (BNVA) | payer OTHER, SELFPAY | PROVIDERS: PCP Internal Medicine; Visit Provider Internal Medicine | DX: E11.9 Type 2 diabetes mellitus without complications (principal); E78.5 Hyperlipidemia, unspecified; E73.9 Lactose intolerance, unspecified; R21 Rash and other nonspecific skin eruption; F41.8 Other specified anxiety disorders | CPT/HCPCS: 99212 ==

== ENCOUNTER 2024-11-03 10:04 | Outpatient (AMB) | payer OTHER, SELFPAY ==
--- NOTE | 2024-11-03 10:12 | MHC.OFFVIS ---
Vital Signs 11/03/24 10:15 Height 5 ft 5 in Weight 300 lb BMI 49.9 BP 122/86 Intake Visit Reasons: annual/cotest [employer]: [employer] Present (GAVIN) Accompanied by: Self / Same As Patient Allergies No Known Allergies (No Known Allergies*) Allergy (Verified 11/03/24 10:15) Is last menstrual period known: Yes Last menstrual period: 10/09/24 HPI Comments Details: Presenting for annual exam. No complaints. 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, colpo biopsy suspicious for high-grade, cervical cone negative residual disease No previous screening Mammogram [facility] Medical History (Updated 11/03/24 @ 10:33 by Domingo Starkey MD) HPV in female Diabetes mellitus type 2, controlled, without complications Generalized anxiety disorder Acute respiratory disease Depression with anxiety Mild intermittent asthma Dyslipidemia Surgical History Hx of section Family History Mother Fibromyalgia Mental health disorder Esophageal cancer Father Diabetes Hypertension High cholesterol Mental health disorder Sister Mental health disorder Sister Mental health disorder Social History Household Members: Family Housing: Apartment Do you presently have visiting nurse or other home services: No Patient Tobacco Use Status: Former Tobacco user Tobacco use type: Cigarette e-Cigarette/Vaping Use: Never Used Second Hand Smoke Exposure: No service: No Current occupational status: disabled Current occupational exposures/hazards: No Cognitive needs: No Hearing needs: No Vision needs: Yes Female Reproductive History Menstrual Age of Menarche: 12 Date of last menstrual period: 10/09/24 control method: none Total pregnancies: 3 Full term: 1 Premature: 2 Number of Living Children: 3 Date of last pap smear: 02/20/23 History of abnormal pap smear: Yes History of abnormal mammogram: No Review of Systems Const All systems reviewed & are unremarkable except as noted in HPI and below Card Reports as per HPI Resp Reports as per HPI GI Reports as per HPI and Reports no additional complaints Reports as per HPI Physical Exam Vital Signs: Last Vital Signs BP 122/86 11/03/24 10:15 BMI result Body Mass Index 49.9 Const General: cooperative, healthy appearing and comfortable Chest Chest palpation & inspection: normal inspection of the chest and normal palpation of entire chest wall Breast/axilla inspection: normal inspection of the breasts and normal inspection of the axillae Breast/axilla palpation: normal palpation of the breasts, normal palpation of the axillae and no axillary lymphadenopathy Resp Effort & Inspection: normal respiratory effort Auscultation: clear to auscultation bilaterally Percussion: percussion normal Cardio Palpation: normal PMI Rate: regular rate Rhythm: regular rhythm Heart sounds: no murmurs and no rubs Peripheral pulses: Peripheral pulses 2+ throughout GI Inspection: Yes normal to inspection Palpation (GI): Soft to palpation, nontender, no guarding, not rigid and No hepatosplenomegaly present Percussion: Yes normal to percussion Auscultation: normal bowel sounds Rectal Exam - Female: deferred General: Yes bladder normal to palpation External Female Exam: No lesion Speculum Exam - Vagina: normal appearance of the vagina, normal palpation, normal vaginal discharge and not erythematous Speculum Exam - Cervix: normal appearance of the cervix and normal palpation Bimanual exam- vagina & uterus: normal bimanual exam, normal palpation, uterine size normal, bladder normal to palpation, consistency normal and normal palpation Bimanual Exam- Adnexa, other: normal adnexae, no masses and no tenderness Assessment & Plan Assessment & Plan (1) Well woman exam: Comment: NICOLE 3, cone past negative residual disease Code(s): Z01.419 - Encounter for gynecological examination (general) (routine) without abnormal findings Category: Medical Plan: Cotesting done. Instructions given the patient to schedule next screening Mammogram in 05/11. Counseled the patient about the recommended dietary allowance of 1000 mg of Calcium & 600 IU of vitamin D. The patient was instructed to perform monthly self-breast exams and to schedule an annual exam in a year; All questions answered and the patient verbalized understanding. Instructed the patient to schedule annual exam in a year Coding Level of Care Code Est Pt Prev Care 18-39y(32825) Diagnoses Well woman exam Z01.419
[2024-11-03 10:15] VITALS: BP 122/86; BMI 49.9
== END 2024-11-03 10:49 | disposition home or self-care (01) ==
LOC: HO.HWS 10:04
PROVIDERS: PCP Internal Medicine; Visit Provider Obstetrics & Gynecology
DX: Z01.419 Encounter for gynecological examination (general) (routine) without abnormal findings (principal)
CPT/HCPCS: 99395; 99459

== ENCOUNTER 2024-11-03 10:04 | Outpatient (REF) | payer OTHER, SELFPAY | END 2024-11-03 10:05 | disposition home or self-care (01) | LOC: HO.LNP 10:04 | PROVIDERS: PCP Internal Medicine; Visit Provider Obstetrics & Gynecology | DX: Z01.419 Encounter for gynecological examination (general) (routine) without abnormal findings (principal) | CPT/HCPCS: 87626; 88175; 99395 ==